=== PATIENT | female | born 1990 | race Caucasian/White ===

== ENCOUNTER 2016-06-20 15:24 | Inpatient (IN) | payer MEDICAID, OTHER ==
[~2016-06-20 15:24] MED LIST: ACET50TA PO; CELE40TA PO; IBUP80TA PO; PROZ20CA11 PO; THIAMINE 100 MG TAB PO SCH
[2016-06-20 15:58] LABS: VENOUS BASE EXCESS -0.1 (-2.0-2.0); VENOUS O2 SATURATION 87.5 % (60.0-80.0); VENOUS PARTIAL PRESSURE CO2 40.9 mmHg (38.0-50.0); VENOUS PARTIAL PRESSURE O2 53.2 mmHg (30.0-50.0); VENOUS STANDARD HCO3 24.2 MEQ/L
[2016-06-20 16:10] LABS: MEAN CORPUSCULAR VOLUME 94.2 fl (80.0-96.0); RED CELL DISTRIBUTION WIDTH 13.7 % (11.5-14.5)
[2016-06-20 16:20] LABS: CONTROL LINE HCG INT CTR LINE PRESENT
[2016-06-20 16:21] LABS: AMPHETAMINES LEVEL URINE NEGATIVE (NEGATIVE); BENZODIAZEPINES URINE NEGATIVE (NEGATIVE); COCAINE METABOLITE URINE NEGATIVE (NEGATIVE); CONTROL LINE INT CTR LINE PRESENT; METHADONE URINE NEGATIVE (NEGATIVE); OPIATES URINE NEGATIVE (NEGATIVE); TRICYCLIC ANTIDEPRESS URINE NEGATIVE (NEGATIVE)
[2016-06-20 16:35] LABS: ALBUMIN 4.2 GM/DL (3.2-5.2); ALBUMIN/GLOBULIN RATIO 1.62 (1.00-1.93); ALKALINE PHOSPHATASE 52 U/L (45-117); ALT/SGPT 63 U/L (12-78); ANION GAP 10 MEQ/L (8-16); AST/SGOT 43 U/L (15-37); BILIRUBIN,DIRECT 0.1 MG/DL (0.0-0.2); BILIRUBIN,TOTAL 0.3 MG/DL (0.2-1.0); BLOOD UREA NITROGEN 9 MG/DL (7-18); CALCIUM LEVEL 8.3 MG/DL (8.5-10.1); CARBON DIOXIDE LEVEL 26 MEQ/L (21-32); CHLORIDE LEVEL 104 MEQ/L (98-107); CREATININE FOR GFR 0.63 MG/DL (0.55-1.02); GLOMERULAR FILTRATION RATE > 60.0 (>60); GLUCOSE, FASTING 67 MG/DL (70-105); POTASSIUM SERUM 3.8 MEQ/L (3.5-5.1); SODIUM LEVEL 140 MEQ/L (136-145); TOTAL PROTEIN 6.8 GM/DL (6.4-8.2)
--- NOTE | 2016-06-20 16:50 | REP ---
CT Head without contrast HISTORY: Altered mental status COMPARISON: 04/14/2010 There is no intraparenchymal hemorrhage, acute infarct, mass or midline shift. The ventricular system is normal in appearance. There is no extra cerebral collection. There is no fracture. The visualized sinuses are clear. IMPRESSION: There is no intracranial lesion. Signed by Josep Moreira MD 06/20/2016 04:42 P
[2016-06-20] MEDS ORDERED: LORazepam 2 MG/ML VIAL (J2060) IV PRN (18:15)
[2016-06-20] MEDS ORDERED: ONDANSETRON 4MG/2ML VIAL (J2405) IV PRN (18:15)
[2016-06-20] MEDS ORDERED: OXAZEPAM 10 MG CAP PO PRN (18:30)
[2016-06-20 19:39] LABS: PROLACTIN 14.8 NG/ML
--- NOTE | 2016-06-20 21:10 | EDDOCDS ---
Physician Documentation [facility] Name: Willow Ortiz Age: 26 yrs Sex: Female : 1990 Arrival Date: 06/20/2016 Time: 15:24 Bed 3 Private MD: Disposition: 06/20/16 17:32 Hospitalization ordered by Abel Nunez for Inpatient Admission. Preliminary diagnosis is Altered mental status, unspecified - suspected ingestion. - Bed requested for PCU. - Status is Inpatient Admission. mlc - Condition is Stable. - Problem is new. - Symptoms are unchanged. Historical: - Allergies: PENICILLINS; - Home Meds: 1. diphenhydramine HCl 25 mg Oral cap found in pants pocket - PMHx: Depression; Bipolar disorder; Substance Abuse; - PSHx: Unable to obtain; - Social history: Smoking status: Patient uses tobacco products, current every day smoker. No barriers to communication noted, The patient speaks fluent Portuguese. - Family history: Not pertinent. - : The pt / caregiver states he / she is not on anticoagulants. Unable to Verify Home Med List with the patient / caregiver. - Exposure Risk Screening:: None identified. LIVING COACH: 06/20 18:54 LMP N/A - Irregular menses kr3 Vital Signs: 15:28 BP 119 / 76; Pulse 104; Resp 16; Temp 98.4(TE); Pulse Ox 99% on R/A; Pain 0/10; kcs 16:06 BP 131 / 78; Pulse 102; Resp 16; Weight 54.43 kg / 120 lbs (R); Height 5 ft. (152.40 kr3 cm) (R); 16:43 BP 113 / 85 (auto/); kr3 16:44 Pulse 101 MON; Resp 16; Pulse Ox 99% on R/A; kr3 17:00 BP 117 / 75 (auto/); kr3 17:01 Pulse 93 MON; Resp 16; Pulse Ox 100% on R/A; kr3 17:21 Pulse 93 MON; Resp 16; Pulse Ox 100% on R/A; kr3 17:28 Pulse 94 MON; kr3 17:30 BP 114 / 83 (auto/); kr3 18:00 BP 121 / 83 (auto/); kr3 18:01 Pulse 93 MON; Resp 16; Pulse Ox 100% on R/A; kr3 18:29 Pulse 102 MON; kr3 18:30 BP 120 / 91 (auto/); kr3 19:00 BP 128 / 81 (auto/); mlc 19:01 Pulse 92 MON; mlc 19:30 BP 126 / 80 (auto/); mlc 19:30 Pulse 90 MON; mlc 20:00 BP 121 / 82 (auto/); mlc 20:01 Pulse 90 MON; mlc 20:30 BP 119 / 88 (auto/); mlc 20:31 Pulse 88 MON; mlc 21:00 BP 130 / 86 (auto/); mlc 21:01 Pulse 88 MON; mlc 21:06 BP 122 / 83; Pulse 90; Resp 18; Temp 98.4; Pulse Ox 99% ; Pain 0/10; mlc 16:06 Body Mass Index 23.44 (54.43 kg, 152.40 cm) kr3 MDM: 15:34 Supervisor Seaming/Pulse Ox/q 30 min VS ordered. sd1 15:34 IV Saline Lock ordered. sd1 15:35 CT Head Without Contrast Ordered. EDMS 15:35 Acetaminophen Level Ordered. EDMS 15:35 Basic Metabolic Profile Ordered. EDMS 15:35 Complete Blood Count Ordered. EDMS 15:35 Drug Eval Toxicology ED Only Ordered. EDMS 15:35 Ethyl Alcohol (ethanol) Ordered. EDMS 15:35 Liver Profile Ordered. EDMS 15:35 Salicylate Level Ordered. EDMS 15:35 Thyroid Stimulating Hormone Ordered. EDMS 15:35 HCG,Serum Qualitative Ordered. EDMS 15:36 NS 0.9% 1000 ml IV at 250 mL/hr continuous ordered. sd1 15:36 ECG WITH READING ER PHYS+CARDIAG ordered. EDMS 15:36 Venous Blood Gas (large pea green tube on ice) Ordered. EDMS 15:36 Ammonia (Little Green Tube on Ice, Not Pea Green) Ordered. EDMS 15:40 BED REQUEST+ADM ordered. EDMS 16:05 Venous Blood Gas (large pea green tube on ice) Reviewed. sd1 16:29 Complete Blood Count Reviewed. sd1 16:29 Drug Eval Toxicology ED Only Reviewed. sd1 16:29 HCG,Serum Qualitative Reviewed. sd1 16:29 Ammonia (Little Green Tube on Ice, Not Pea Green) Reviewed. sd1 16:40 Acetaminophen Level Reviewed. sd1 16:40 Basic Metabolic Profile Reviewed. sd1 16:40 Liver Profile Reviewed. sd1 16:40 Salicylate Level Reviewed. sd1 16:40 Thyroid Stimulating Hormone Reviewed. sd1 16:40 Ethyl Alcohol (ethanol) Reviewed. sd1 16:40 HCG,Serum Qualitative Reviewed. sd1 16:41 Misc. Nursing Order ordered. sd1 17:30 CT Head Without Contrast Reviewed. sd1 17:33 Accucheck ordered. sd1 17:34 Osmolality, Serum Ordered. EDMS 17:49 Fingerstick Blood Sugar Ordered. EDMS 18:08 ERYTHROCYTE SEDIMENTATION RATE Ordered. EDMS 18:08 C REACTIVE PROTEIN QUANTITATIV Ordered. EDMS 18:08 PROLACTIN Ordered. EDMS 18:09 MRI Brain without Contrast Ordered. EDMS 18:12 Admission / Observation Status ordered. EDMS 18:12 ELECTROCARDIOGRAM ADULT ordered. EDMS 18:12 REGULAR DIET ordered. EDMS 18:28 CREATINE PHOSPHOKINASE Ordered. EDMS 19:14 [facility] [place] was scanned into [employer] and attached to record. [facility] 19:14 Financial registration complete. gjb 19:32 COMPLETE BLOOD COUNT Ordered. EDMS 19:32 COMPLETE COMPHRENSIVE METABOLI Ordered. EDMS Administered Medications: 15:55 Drug: NS 0.9% 1000 ml [sodium chloride 0.9 % intravenous solution] Route: IV; Rate: 250 kr3 mL/hr; Site: left forearm; Signatures: Dispatcher [employer] EDDE Monica Mills MD MD sd1 Ariel Le, Strategic Sourcing Manager Unit ml3 Cookie Moise RN RN kr3 Ana Tompkins RN RN mlc Beck, Gabriela gjb The chart was reviewed and I authenticate all verbal orders and agree with the evaluation and treatment provided.Corrections: (The following items were deleted from the chart) 18:28 17:34 CREATINE PHOSPHOKINASE+LAB ordered. EDMS EDMS Attachments: 19:14 [facility] [place] gjb MTDD
--- NOTE | 2016-06-20 21:10 | EDDOCDS ---
Nurse's Notes [facility] Name: Willow Ortiz Age: 26 yrs Sex: Female : 1990 Arrival Date: 06/20/2016 Time: 15:24 Bed 3 Private MD: Diagnosis: Altered mental status, unspecified-suspected ingestion Presentation: 06/20 15:28 Transition of care: patient was not received from another setting of care. kr3 15:28 Presenting complaint: EMS states: seizure while at work, witnessed by staff. 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 Care prior to arrival: Glucose check. 121. 15:28 Acuity: STEPHAN Level 3 kr3 15:28 Method Of Arrival: Ambulance kr3 15:31 Adult Sepsis Screening: Patient has new or worsening altered mentation (1 point). kr3 Patient's respiratory rate is less than 22. Systolic blood pressure is greater than 100. Patient has a qSOFA score of 1- Negative Sepsis Screen. 18:54 Suicide/Homicide risk assessment- the patient denies having any suicidal and/or kr3 homicidal ideations and does not present with any other emotional, behavioral or mental health complaints. Triage Assessment: 16:01 General: Appears in no apparent distress, Behavior is restless. Pain: Denies pain. HIV kr3 screening NA for this visit unable to answer appropriately. The patient is triaged at the bedside. See Assessment in Nurses Notes section of ED record. Neurological: Level of Consciousness is awake, confused. TRIAL COURT JUSTICE: 18:54 LMP N/A - Irregular menses kr3 Historical: - Allergies: PENICILLINS; - Home Meds: 1. diphenhydramine HCl 25 mg Oral cap found in pants pocket - PMHx: Depression; Bipolar disorder; Substance Abuse; - PSHx: Unable to obtain; - Social history: Smoking status: Patient uses tobacco products, current every day smoker. No barriers to communication noted, The patient speaks fluent Portuguese. - Family history: Not pertinent. - : The pt / caregiver states he / she is not on anticoagulants. Unable to Verify Home Med List with the patient / caregiver. - Exposure Risk Screening:: None identified. Screenin:07 Screening information is obtained from the patient. Fall risk: At risk due to apparent kr3 cognitive impairment. Assistance ADL's: requires no assistance with activities of daily living. Abuse/DV Screen: Unable to Assess. Nutritional screening: No deficits noted. Advance Directives: Currently, there is no health care proxy. home support. 18:54 Abuse/DV Screen: The patient / caregiver reports he/she is: not in a situation that kr3 causes fear, pain or injury. Assessment: 16:02 Reassessment: Patient appears in no apparent distress at this time. General: Behavior kr3 is cooperative with redirection. attempts have been made to remove IV and get off stretcher. patient is reminded to leave IV alone and stay on stretcher and reports I forget. . Pain: Denies pain. 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 wants to get off stretcher to get book bag. Cardiovascular: Rhythm is regular. Respiratory: Respiratory effort is even, unlabored. Derm: Skin is normal. 16:21 Reassessment: confused about events, reoriented. Boyfriend at bedside and reports no kr3 history of seizures. 17:32 Adult Sepsis Screening: The patient does not have new or worsening altered mentation. kr3 Patient's respiratory rate is less than 22. Systolic blood pressure is greater than 100. Patient has a qSOFA score of 0- Negative Sepsis Screen. 17:35 Reassessment: Patient appears in no apparent distress at this time. General: Behavior kr3 is cooperative. Neurological: Level of Consciousness is awake, confused, Oriented to person, when asked her location she reports at [place]. Aware it is 2016 but thinks it is April. Moves all extremities. 18:21 Reassessment: Patient appears in no apparent distress at this time. Neurological: Level kr3 of Consciousness is awake, confused, Oriented to person, confused as to place and date. Recognizes boyfriend and will follow commands. 18:52 Reassessment: Patient appears in no apparent distress at this time. Patient denies pain kr3 at this time. Neurological: Level of Consciousness is awake, Oriented to person, place, aware it is winter and is 2017, not sure of month. Moves all extremities. Speech is normal. Derm: Skin is normal. 19:31 General: Appears in no apparent distress, comfortable, Behavior is cooperative, mlc pleasant. General: pt asking for creamer for her coffee which she states "is downstairs". Pain: Denies pain. Neurological: Level of Consciousness is awake, confused, obeys commands, Oriented to person, place. Cardiovascular: Capillary refill < 3 seconds Heart tones S1 S2 present Rhythm is regular. Respiratory: Airway is patent Respiratory effort is even, unlabored, Respiratory pattern is regular, Breath sounds are clear bilaterally. Derm: Skin is normal. 20:33 Reassessment: Patient appears in no apparent distress at this time. pt resting in bed, mlc resp easy/unlabored. no changes since prior. 21:05 General: Appears in no apparent distress, comfortable, Behavior is cooperative. Pain: mlc Denies pain. Neurological: Level of Consciousness is awake, obeys commands, Oriented to person, place. Respiratory: Airway is patent Respiratory effort is even, unlabored, Respiratory pattern is regular. 21:05 Derm: Bruising that is on forehead. [facility] [place] Vital Signs: 15:28 BP 119 / 76; Pulse 104; Resp 16; Temp 98.4(TE); Pulse Ox 99% on R/A; Pain 0/10; kcs 16:06 BP 131 / 78; Pulse 102; Resp 16; Weight 54.43 kg (R); Height 5 ft. (152.40 cm) (R); kr3 16:43 BP 113 / 85 (auto/); kr3 16:44 Pulse 101 MON; Resp 16; Pulse Ox 99% on R/A; kr3 17:00 BP 117 / 75 (auto/); kr3 17:01 Pulse 93 MON; Resp 16; Pulse Ox 100% on R/A; kr3 17:21 Pulse 93 MON; Resp 16; Pulse Ox 100% on R/A; kr3 17:28 Pulse 94 MON; kr3 17:30 BP 114 / 83 (auto/); kr3 18:00 BP 121 / 83 (auto/); kr3 18:01 Pulse 93 MON; Resp 16; Pulse Ox 100% on R/A; kr3 18:29 Pulse 102 MON; kr3 18:30 BP 120 / 91 (auto/); kr3 19:00 BP 128 / 81 (auto/); mlc 19:01 Pulse 92 MON; mlc 19:30 BP 126 / 80 (auto/); mlc 19:30 Pulse 90 MON; mlc 20:00 BP 121 / 82 (auto/); mlc 20:01 Pulse 90 MON; mlc 20:30 BP 119 / 88 (auto/); mlc 20:31 Pulse 88 MON; mlc 21:00 BP 130 / 86 (auto/); mlc 21:01 Pulse 88 MON; mlc 21:06 BP 122 / 83; Pulse 90; Resp 18; Temp 98.4; Pulse Ox 99% ; Pain 0/10; mlc 16:06 Body Mass Index 23.44 (54.43 kg, 152.40 cm) kr3 Vitals: 15:32 Log In Time N/A - ambulance arrival. kr3 ED Course: 15:25 Patient visited by Xenia Buckley, Supervisor Incising. deg 15:25 Patient moved to Waiting deg 15:26 Monica Mills MD is Attending Physician. sd1 15:26 Patient moved to 11 deg 15:28 Patient visited by Monica Mills MD. sd1 15:29 Triage Initiated kr3 15:36 Patient moved to 3 sd1 15:52 Cookie Moise,JANENE is Primary Nurse. kr3 16:00 Drug Eval Toxicology ED Only Sent. kr3 16:01 Maintain field IV. Dressing intact. Site clean & dry. Gauge & site: #18 left forearm. kr3 16:06 The patient / caregiver is instructed regarding the plan of care and ED course. Patient kr3 has correct armband on for positive identification. Placed in gown. Bed in low position. Side rails up X2. Seizure precautions initiated. radiation monitor on. Pulse ox on. NIBP on. 16:12 EKG done. (by ED staff). Reviewed by Monica Mills MD. dem1 16:20 Patient visited by Cookie Moise,JANENE. kr3 16:21 Patient visited by Kyleigh Pham. dem1 17:18 CT Head Without Contrast Returned. EDMS 17:24 Patient visited by Almaz Walker PCA. ct3 17:31 Abel Nunez is Hospitalizing Provider. sd1 17:33 Patient visited by Cynthia Mccray,JANENE. lf1 17:33 Assisted to bedside commode. lf1 18:54 No procedures done that require assistance. kr3 19:00 Ana Tompkins,JANENE is Primary Nurse. mlc 19:00 Primary Nurse role handed off by Cookie Moise,JANENE kr3 19:14 [facility] Payment Agreement was scanned into [employer] and attached to record. gjb 19:35 Patient visited by Ana Tompkins RN. mlc Administered Medications: 15:55 Drug: NS 0.9% 1000 ml [sodium chloride 0.9 % intravenous solution] Route: IV; Rate: 250 kr3 mL/hr; Site: left forearm; Output: 17:33 Urine: 300.00ml (Voided); Total: 300.00ml. lf1 Order Results: Lab Order: Acetaminophen Level; SPEC'M 06/20/16 15:49 Test: ACETAMINOPHEN LEVEL; Value: < 2.0; Range: 10.0-30.0; Abnormal: Below low normal; Units: UG/ML; Status: F Lab Order: Basic Metabolic Profile; SPEC'M 06/20/16 15:49 Test: GLUCOSE, FASTING; Value: 67; Range: 70-105; Abnormal: Below low normal; Units: MG/DL; Status: F Test: BLOOD UREA NITROGEN; Value: 9; Range: 7-18; Units: MG/DL; Status: F Test: CREATININE FOR GFR; Value: 0.63; Range: 0.55-1.02; Units: MG/DL; Status: F Test: SODIUM LEVEL; Range: 136-145; Units: MEQ/L; Status: I Test: POTASSIUM SERUM; Range: 3.5-5.1; Units: MEQ/L; Status: I Test: CHLORIDE LEVEL; Range: 98-107; Units: MEQ/L; Status: I Test: CARBON DIOXIDE LEVEL; Range: 21-32; Units: MEQ/L; Status: I Test: ANION GAP; Range: 8-16; Units: MEQ/L; Status: I Test: CALCIUM LEVEL; Range: 8.5-10.1; Units: MG/DL; Status: I Test: GLOMERULAR FILTRATION RATE; Value: > 60.0; Range: >60; Status: F Test: SODIUM LEVEL; Value: 140; Range: 136-145; Units: MEQ/L; Status: F Test: POTASSIUM SERUM; Value: 3.8; Range: 3.5-5.1; Units: MEQ/L; Status: F Test: CHLORIDE LEVEL; Value: 104; Range: 98-107; Units: MEQ/L; Status: F Test: CARBON DIOXIDE LEVEL; Value: 26; Range: 21-32; Units: MEQ/L; Status: F Test: ANION GAP; Value: 10; Range: 8-16; Units: MEQ/L; Status: F Test: CALCIUM LEVEL; Value: 8.3; Range: 8.5-10.1; Abnormal: Below low normal; Units: MG/DL; Status: F Test Note: ; Units are mL/min/1.73 m2 Chronic Kidney Disease Staging per NKF: Stage I & II GFR >=60 Normal to Mildly Decreased Stage III GFR 30-59 Moderately Decreased Stage IV GFR 15-29 Severely Decreased Stage V GFR <15 Very Little GFR Left ESRD GFR <15 on SHERIFF SERGEANT Lab Order: Complete Blood Count; SPEC'M 06/20/16 15:49 Test: WHITE BLOOD COUNT; Value: 8.0; Range: 4.0-10.0; Units: K/mm3; Status: F Test: RED BLOOD COUNT; Value: 3.71; Range: 4.00-5.40; Abnormal: Below low normal; Units: M/mm3; Status: F Test: HEMOGLOBIN; Value: 11.5; Range: 12.0-16.0; Abnormal: Below low normal; Units: g/dl; Status: F Test: HEMATOCRIT; Value: 34.9; Range: 36.0-47.0; Abnormal: Below low normal; Units: %; Status: F Test: MEAN CORPUSCULAR VOLUME; Value: 94.2; Range: 80.0-96.0; Units: fl; Status: F Test: MEAN CORPUSCULAR HEMOGLOBIN; Value: 31.0; Range: 27.0-33.0; Units: pg; Status: F Test: MEAN CORPUSCULAR HGB CONC; Value: 33.0; Range: 32.0-36.5; Units: g/dl; Status: F Test: RED CELL DISTRIBUTION WIDTH; Value: 13.7; Range: 11.5-14.5; Units: %; Status: F Test: PLATELET COUNT, AUTOMATED; Value: 240; Range: 150-450; Units: k/mm3; Status: F Lab Order: Drug Eval Toxicology ED Only; SPEC'M 06/20/16 15:59 Test: AMPHETAMINES LEVEL URINE; Value: NEGATIVE; Range: NEGATIVE; Status: F Test: BARBITURATES URINE; Value: NEGATIVE; Range: NEGATIVE; Status: F Test: BENZODIAZEPINES URINE; Value: NEGATIVE; Range: NEGATIVE; Status: F Test: CANNABINOIDS URINE; Value: NEGATIVE; Range: NEGATIVE; Status: F Test: COCAINE METABOLITE URINE; Value: NEGATIVE; Range: NEGATIVE; Status: F Test: METHADONE URINE; Value: NEGATIVE; Range: NEGATIVE; Status: F Test: OPIATES URINE; Value: NEGATIVE; Range: NEGATIVE; Status: F Test: TRICYCLIC ANTIDEPRESS URINE; Value: NEGATIVE; Range: NEGATIVE; Status: F Test Note: ; ALL PRESUMPTIVE POSITIVE FINDINGS ARE UNCONFIRMED NORMAL VALUES THRESHOLD IN NG/ML AMPHETAMINES 1000 METHAMPHETAMINES 1000 BARBITURATES 300 BENZODIAZEPINES 300 CANNABINOIDS (THC) 50 COCAINE METABOLITE 300 METHADONE 300 OPIATES 300 PHENCYCLIDINE 25 TRICYCLIC ANTIDEPRESSANTS 1000 RESULTS ARE FOR MEDICAL PURPOSES ONLY. ALL URINE SPECIMENS WILL BE SAVED FOR 3 DAYS. IF CONFIRMATION OF A PRESUMPTIVE POSTIVE SCREEN RESULT IS DESIRED, CALL CHEMISTRY ([phone]) AND REQUEST URINE TO BE SENT TO REFERENCE LAB. FOR A LIST OF CLOSELY RELATED COMPOUNDS PLEASE CALL THE LAB. Lab Order: Ethyl Alcohol (ethanol); SPEC'M 06/20/16 15:49 Test: ETHYL ALCOHOL (ETHANOL); Value: 0.003; Range: 0.000-0.010; Units: %; Status: F Lab Order: Liver Profile; SPEC'M 06/20/16 15:49 Test: AST/SGOT; Value: 43; Range: 15-37; Abnormal: Above high normal; Units: U/L; Status: F Test: ALT/SGPT; Value: 63; Range: 12-78; Units: U/L; Status: F Test: ALKALINE PHOSPHATASE; Value: 52; Range: 45-117; Units: U/L; Status: F Test: BILIRUBIN,TOTAL; Value: 0.3; Range: 0.2-1.0; Units: MG/DL; Status: F Test: BILIRUBIN,DIRECT; Value: 0.1; Range: 0.0-0.2; Units: MG/DL; Status: F Test: TOTAL PROTEIN; Value: 6.8; Range: 6.4-8.2; Units: GM/DL; Status: F Test: ALBUMIN; Value: 4.2; Range: 3.2-5.2; Units: GM/DL; Status: F Test: ALBUMIN/GLOBULIN RATIO; Value: 1.62; Range: 1.00-1.93; Status: F Lab Order: Salicylate Level; SPEC06/20/16 15:49 Test: SALICYLATE LEVEL; Value: 3.3; Range: 5.0-30.0; Abnormal: Below low normal; Units: MG/DL; Status: F Lab Order: Thyroid Stimulating Hormone; SPEC06/20/16 15:49 Test: THYROID STIMULATING HORMONE; Value: 5.890; Range: 0.358-3.740; Abnormal: Above high normal; Units: uIU/ML; Status: F Lab Order: HCG,Serum Qualitative; 06/20/16 15:49 Test: HCG, SERUM QUALITATIVE; Value: NEGATIVE; Range: NEGATIVE; Status: F Lab Order: Venous Blood Gas (large pea green tube on ice); SPEC06/20/16 15:49 Test: VENOUS PH; Value: 7.399; Range: 7.330-7.430; Units: UNITS; Status: F Test: VENOUS PARTIAL PRESSURE CO2; Value: 40.9; Range: 38.0-50.0; Units: mmHg; Status: F Test: VENOUS PARTIAL PRESSURE O2; Value: 53.2; Range: 30.0-50.0; Abnormal: Above high normal; Units: mmHg; Status: F Test: VENOUS TOTAL CO2; Value: 26.0; Range: 24.0-28.0; Units: MEQ/L; Status: F Test: VENOUS HCO3; Value: 24.7; Range: 23.0-27.0; Units: MEQ/L; Status: F Test: VENOUS BASE EXCESS; Value: -0.1; Range: -2.0-2.0; Status: F Test: VENOUS STANDARD HCO3; Value: 24.2; Units: MEQ/L; Status: F Test: VENOUS O2 SATURATION; Value: 87.5; Range: 60.0-80.0; Abnormal: Above high normal; Units: %; Status: F Lab Order: Ammonia (Little Green Tube on Ice, Not Pea Green); SPEC06/20/16 15:49 Test: AMMONIA; Value: 17; Range: <32; Units: uMOL/L; Status: F Lab Order: Osmolality, Serum; SPEC'06/20/16 18:17 Test: OSMOLALITY SERUM; Value: 290; Range: 275-295; Units: MOSM/KG; Status: F Lab Order: Fingerstick Blood Sugar; 06/20/16 17:40 Test: BEDSIDE GLUCOSE; Value: 117; Range: 70-105; Abnormal: Above high normal; Units: MG/DL; Status: F Test Note: ; Doctor Notified Lab Order: ERYTHROCYTE SEDIMENTATION RATE; SPEC06/20/16 18:17 Test: ERYTHROCYTE SEDIMENTATION RATE; Value: 8; Range: 0-20; Units: mm/hr; Status: F Lab Order: C REACTIVE PROTEIN QUANTITATIV; 06/20/16 18:17 Test: C REACTIVE PROTEIN QUANTITATIV; Value: < 0.30; Range: 0.00-0.30; Units: MG/DL; Status: F Lab Order: PROLACTIN; 06/20/16 18:17 Test: PROLACTIN; Value: 14.8; Units: NG/ML; Status: F Test Note: ; Non-: 2.8 - 29.2 ng/mL : 9.7 - 208.5 ng/mL Post Menopausal: 1.8 - 20.3 ng/mL Lab Order: CREATINE PHOSPHOKINASE; 06/20/16 18:17 Test: CPK CREATINE PHOSPHOKINASE; Value: 118; Range: 26-192; Units: U/L; Status: F Radiology Order: CT Head Without Contrast Test: CT Head Without Contrast REASON FOR EXAMINATION: altered mental status; CT Head without contrast; ; HISTORY: Altered mental status; ; COMPARISON: 04/14/2010; ; There is no intraparenchymal hemorrhage, acute infarct, mass or midline shift.; The ventricular system is normal in appearance. There is no extra cerebral; collection. There is no fracture. The visualized sinuses are clear.; ; IMPRESSION: There is no intracranial lesion.; ; ; ; ; Signed by; Josep Moreira MD 06/20/2016 04:42 P; Outcome: 17:32 Decision to Hospitalize by Provider. sd1 18:53 CT Study completed. kr3 21:06 Discharge Assessment: Patient awake, alert and oriented x 3. No cognitive and/or mlc functional deficits noted. Patient verbalized understanding of disposition instructions. patient administered narcotics - no. The following High Risk Discharge criteria are identified: None. Admitted to PCU accompanied by nurse, accompanied by tech, via stretcher, on monitor, with chart. Condition: stable. Property :Personal belongings accompany Pt. 21:08 Patient left the ED. mlc Signatures: Dispatcher [employer] EDMS Monica Mills MD MD sd1 Laila Grissom, RN RN kcs Xenia Buckley, Supervisor Incising Unit deg Cookie MoiseRN RN kr3 Cynthia Mccray RN RN lf1 Almaz Walker, BLACKSMITH HAMMER OPERATOR BLACKSMITH HAMMER OPERATOR ct3 Kyleigh Pham demAna GallowayRN RN Blanca Cantrell Corrections: (The following items were deleted from the chart) 18:32 17:21 Pulse 93bpm; Monitor; Pulse Ox 100%; kr3 kr3 18:32 17:01 Pulse 93bpm; Monitor; Pulse Ox 100%; kr3 kr3 18:32 16:44 Pulse 101bpm; Monitor; Pulse Ox 99%; kr3 kr3 MTDD
[2016-06-20 21:21] VITALS: BP 116/83
[2016-06-20] MEDS: MULTIVITAMINS/MINERALS THERAP 1 TAB PO SCH (22:08)
[2016-06-20] MEDS: FOLIC ACID 1 MG TAB PO SCH (22:08)
[2016-06-20] MEDS: NS 1,000 ML IV SCH (22:09)
--- NOTE | 2016-06-20 22:09 | HPE ---
DATE OF ADMISSION: 06/20/2016 PRIMARY CARE PROVIDER: Patient cannot provide me with a name. She thinks it is Lynne something. CHIEF COMPLAINT: Seizure. HISTORY OF PRESENT ILLNESS: The patient is a 26-year-old female who reports being in her usual state of her health. She is accompanied by her boyfriend of four months in the emergency room. States that the patient has been in her usual state of health. He was reportedly going to pick the patient up at three o'clock this afternoon when she finished her work shift. It was at that time that he called her and was informed by a fellow staff member at the patient's place of employment that only moments earlier, approximately 3 p.m. today, the patient had a seizure, and that there were members of the fire department next to the patient at that time and they brought her to the emergency room. The patient remembers being at work today, but does not remember the events of the seizure or being brought to the hospital. At the time of my exam, she is oriented to person, place. She knows that she is at [facility], but she does not remember why. She does not know why she is here. At the present times, she complains of feeling thirsty and dry mouth, but otherwise denies any toxic ingestions otherwise, or any changes in her health status. She tells me that she takes no medications and has otherwise been feeling well. The patient's boyfriend is bedside and reaffirms that the patient was drinking up until four months ago, but has not been drinking in the past four months that he is aware of and that he is not aware of her using any illicit substances during the last four months that he is aware of. The patient does have a history of substance abuse and also hospitalization for major depressive disorder in the past. The patient and the boyfriend denied any increased stressor or lack of sleep. The patient is not taking any medications. At the present time, the patient denies fever, chills, chest pain, shortness of breath, nausea, vomiting or diarrhea, sick contacts. PAST MEDICAL HISTORY: 1. Bipolar disorder. 2. Major depressive disorder. 3. Substance abuse. HOME MEDICATIONS: The patient was found to have Benadryl packets in her pocket. ALLERGIES: PENICILLIN. PAST SURGICAL HISTORY: The patient denies any. SOCIAL HISTORY: The patient smokes a half pack a day for the past 12 years. She lives with her boyfriend and her daughter who is three years old. The patient's daughter is currently with the patient's mother. She is a full code. FAMILY HISTORY: Noncontributory. REVIEW OF SYSTEMS: Negative other than as per history of present illness (HPI). PHYSICAL EXAMINATION: VITAL SIGNS: Blood pressure 114/83, pulse 94, respiratory rate 16, temperature 98.4, oxygen saturation 100% on room air. GENERAL: She is a young, somewhat disheveled female sitting up in bed. She is awake, alert, and oriented; however, the patient's boyfriend states that her mental status is improving over the last 20 minutes. She does appear to be postictal. She does not appear to be in any acute distress whatsoever. HEENT: Cranial nerves II through XII are grossly intact. Her pupils are not dilated, but she does have dry mucous membranes. No elevation of central venous pressure (CVP). CARDIOVASCULAR: S1, S2. She is mildly tachycardic with a heart rate in the 90s. RESPIRATORY: Clear. ABDOMEN: Benign. EXTREMITIES: No clubbing, cyanosis or edema. LABORATORY DATA: WBC 8.0, hemoglobin 11.5, hematocrit 34.9, platelet count 240. Chemistry panel: Sodium 140, potassium 3.8, chloride 104, bicarbonate 26, BUN 9, creatinine 0.6. AST slightly elevated at 43. Ammonia within normal limits. A TSH is slightly elevated. HCG is negative. A VBG is fairly unremarkable. Toxicology is only positive for alcohol. IMAGING: The patient did have a CT scan of the head that revealed no intracranial lesion. ASSESSMENT AND PLAN: This is a 26-year-old female status post what appears to be a seizure episode. 1. Seizure. The only history is collateral from the patient's boyfriend, who states he was told she had a seizure at work. The patient cannot remember the events herself. At this time, we will begin seizure evaluation. The patient has no history of seizures. We will check an electroencephalogram (EEG), will check an MRI of the brain. The patient's boyfriend also stated that the patient has not been drinking; however, she was positive for alcohol at the time of her arrival. There is also suspicion that she may have been taking Benadryl as well. Given the patient's psychiatric history and substance abuse history, it is unclear if she potentially ingested some other substance which could be creating her slight level of confusion at the present time, or even inducing the seizure. For the time being, we will place her on a one-to-one sitter. She may benefit from a psychiatric evaluation once she has completely returned to her baseline. It is also possible that her confusion at this time is simply postictal. 2. Alcohol abuse. The patient has a history of alcohol abuse, and her boyfriend says she is not drinking; however, she was positive for alcohol on her toxicology screen. We will put her on as-needed Serax and intravenous (IV) Ativan as needed for seizures, as well as folic acid, multivitamin and thiamine. She does appear to be somewhat dry. I will provide her with normal saline at 100 mL an hour and Zofran as needed. 3. Tobacco use. Cessation counseling. The utility of this is questionable at this point as her mental status is somewhat cloudy. Reconsider when the patient is more alert. 4. Possible Benadryl toxicity. She does not appear to be overtly anticholinergic. She has dry mucous membranes but she is not tachycardic. Her pupils are not dilated. For the time being, we will monitor in the progressive care unit with a one-to-one sitter with neurologic checks and seizure precautions. 5. Deep venous thrombosis (DVT) prophylaxis. Sequentials and thromboembolism deterrent stockings (TEDs), and early ambulation. DISPOSITION: The patient is admitted to the progressive care unit to Dr. Felipe's service who will continue following the patient tomorrow at 7 a.m. Also, please note that given that the patient has had an episode of seizure, she should not be driving in the near future.
[2016-06-21 00:24] VITALS: BP 100/54
[2016-06-21] MEDS ORDERED: IBUPROFEN 400 MG TAB PO ONE (00:45)
[2016-06-21 04:41] VITALS: BP 98/56
[2016-06-21 06:00] LABS: MEAN CORPUSCULAR HEMOGLOBIN 32.2 pg (27.0-33.0); MEAN CORPUSCULAR HGB CONC 33.6 g/dl (32.0-36.5); MEAN CORPUSCULAR VOLUME 95.9 fl (80.0-96.0); RED CELL DISTRIBUTION WIDTH 13.7 % (11.5-14.5)
[2016-06-21 06:14] LABS: ALBUMIN 3.5 GM/DL (3.2-5.2); ALBUMIN/GLOBULIN RATIO 1.35 (1.00-1.93); ALKALINE PHOSPHATASE 45 U/L (45-117); ALT/SGPT 62 U/L (12-78); ANION GAP 9 MEQ/L (8-16); AST/SGOT 40 U/L (15-37); BILIRUBIN,TOTAL 0.2 MG/DL (0.2-1.0); BLOOD UREA NITROGEN 11 MG/DL (7-18); CALCIUM LEVEL 7.5 MG/DL (8.5-10.1); CARBON DIOXIDE LEVEL 24 MEQ/L (21-32); CHLORIDE LEVEL 108 MEQ/L (98-107); CREATININE FOR GFR 0.71 MG/DL (0.55-1.02); GLOMERULAR FILTRATION RATE > 60.0 (>60); GLUCOSE, FASTING 86 MG/DL (70-105); SODIUM LEVEL 141 MEQ/L (136-145); TOTAL PROTEIN 6.1 GM/DL (6.4-8.2)
[2016-06-21] MEDS: NS 1,000 ML IV SCH (06:30)
--- NOTE | 2016-06-21 07:27 | ECGEPIP ---
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
[2016-06-21 08:00] VITALS: BP 99/62
[2016-06-21 08:24] LABS: FREE T4 0.74 NG/DL (0.76-1.46)
[2016-06-21] MEDS: FOLIC ACID 1 MG TAB PO SCH (09:01)
[2016-06-21] MEDS: MULTIVITAMINS/MINERALS THERAP 1 TAB PO SCH (09:01)
[2016-06-21 12:00] VITALS: BP 92/52
--- NOTE | 2016-06-21 12:25 | REP ---
MR BRAIN WITHOUT CONTRAST: HISTORY: Seizure. COMPARISON: CT 06/20/2016. There are no areas of abnormal signal intensity in the brain. There is no intraparenchymal hemorrhage, infarct, mass, or midline shift. The ventricular system is normal in appearance. There is no extracerebral collection. Mucosal thickening is present in the ethmoid, frontal, and maxillary sinuses. IMPRESSION: There is no intracranial lesion. Signed by Josep Moreira MD 06/21/2016 12:34 P
--- NOTE | 2016-06-21 15:30 | IPN ---
DATE: 06/21/2016 SUBJECTIVE: This is a 26-year-old female who was seen and examined at bedside. Overnight, no reported acute events. Yesterday, she was admitted for possible seizure. She has never had a diagnosis of seizure before. Reportedly had not been taking any medication. While she was found to have Benadryl in her pocket, she said the last time she took any Benadryl was 2 weeks ago. Denies any headache, lightheadedness, dizziness, fevers, chills, nausea, vomiting, diarrhea , constipation, weakness, blurred vision. OBJECTIVE: VITAL SIGNS: Blood pressure 99/62, heart rate 77, respiration rate 22, temperature 96.5, pulse oximetry 97% on room air. Intake and output last 24 hours: 960 and 100. GENERAL: Patient is sitting in bed, eating, comfortable, in no acute distress. She is alert, awake, oriented times three, pleasant and cooperative. Boyfriend at bedside. HEENT: Normocephalic, atraumatic. Moist oral mucosa. Extraocular movement intact. Pupils equal and reactive to light, 3 mm. NECK: Supple, trachea midline, no jugular venous distention (JVD). CHEST: Symmetric chest rise, no accessory muscle use. Breath sounds clear to auscultation bilaterally. HEART: Regular rate and rhythm, S1, S2, present. ABDOMEN: Soft, nontender, nondistended. Bowel sounds present. No guarding, no rebound. EXTREMITIES: No pedal edema. Pedal pulses present bilaterally. NEUROLOGIC: Strength 5/5 in all extremities. Negative Babinski. LABORATORY DATA: WBC 7, hemoglobin 11, hematocrit 32.9, platelets 246. Sodium 141, potassium 4, chloride 108, carbon dioxide 24, BUN 11, creatinine 0.71, glucose 86, calcium 7.5, AST 40, ALT 60, alkaline phosphatase 45. TSH 5.9. IMPRESSION AND PLAN: Ms. Ortiz is a 26-year-old female admitted for possible seizure disorder. 1. Possible seizure, though event was not witnessed. Currently has EEG pending and also getting MRI. Will followup with results. CT on admission was negative. Prolactin was negative. Continue to monitor. There was concern for possible Benadryl abuse. Currently patient denies taking any of this in the last 2 weeks. Continue one-to-one sitter for now. 2. Alcohol abuse. Apparently is in remission, her last drink was 4 months ago per patient and boyfriend. 3. Deep venous thrombosis (DVT) prophylaxis. Sequential compression device (SCDs) and thromboembolism deterrents (TEDs). My preceptor for this patient encounter was Dr. Jasvir Felipe. The preceptor was physically present in the building during the encounter and was fully available. As needed, all aspects of the patient interview, examination, medical decision making process, and medical care plan development were reviewed and approved by the preceptor. The preceptor is aware and concurs with the plan as stated in the body of this note and will attest to such by his/her cosignature. TONYA
--- NOTE | 2016-06-21 17:46 | EEG ---
DATE OF PROCEDURE: 06/21/2016 REFERRING PHYSICIAN: Jasvir Felipe MD DIAGNOSIS: Seizure. EE The patient is 26-year-old woman who was admitted at [facility] after a seizure-like spell. She has history of substance abuse and had positive toxicology screen. She is currently taking folic acid, thiamine, oxazepam, Ativan, etc. TECHNICAL DESCRIPTION: This digital EEG was recorded by 21 scalp, ear and two EKG electrodes and was reviewed in bipolar and referential montages following reformatting in 10-20 international electrode placement system. INTERPRETATION: The patient was noted to be in awake and drowsy states during this EEG. Resting awake background rhythm consisted of 9 Hz alpha activity measuring 15-30 microvolts in amplitude, which was symmetric and reactive to eye opening. Attenuation of posterior dominant rhythm was seen during transition into drowsiness. Stage I and II sleep were reviewed and were symmetric bilaterally. Hyperventilation elicited mild theta slowing of background rhythm. Photic stimulation remained unremarkable. EKG revealed normal sinus rhythm. No focal, lateralizing or epileptiform abnormalities were seen. No clinical or electrographic seizures were recorded. CONCLUSION: This EEG in awake, drowsy states, stage I and II sleep is within normal limits.
--- NOTE | 2016-06-21 21:30 | DS.PDOC ---
Discharge Summary General Date of Admission Jun 20, 2016 at 18:08 Date of Discharge Jun 21, 2016 at 13:35 Attending Physician: ARTEM HEMPHILL MD Discharge Summary PROCEDURES PERFORMED DURING STAY: [None.] COMPLICATIONS/CHIEF COMPLAINT: Seizure ADMISSION/DISCHARGE DIAGNOSES: 1. Seizure, unknown etiology 2. H/o Alcohol abuse 3. H/o Substance abuse 4. H/o MDD 5. H/o Bipolar d/o. HISTORY OF PRESENT ILLNESS/HOSPITAL COURSE: This is a 26 y/o F with PMHx Depression, Bipolar d/o, h/o alcohol abuse/ substance abuse (no recent use) who presents after having a seizure at work. Pt was at work, talking to her boyfriend over the phone, as he was outside of the building, waiting to pick her up. He noticed that she was becoming incoherent, and then heard a thump. A co-worker of her's took the phone, and reported her unconscious and seizing. Pt was in a post-ictal state upon arrival to the ED. Pt states she had Benadryl in her pocket that she received from her co-worker for her seasonal allergies. She reports no recent alcohol or illicit drug use. She has no history or family history of neurologic d/o, seizures, or strokes. She states she has never had nor has suicidal ideations. Never had any suicide attempts or overdose attempts. Feels happy in a relationship with her boyfriend. Pt was adamant that she would like to leave AMA as she needs to be home by 5pm so she can take care of her daughter. Does not want to stay until all test results have returned and evaluated by neurology. Advised not to drive or use heavy machinery until evaluated and cleared by a neurologist. DISCHARGE MEDICATIONS: Please see below. ALLERGIES: Please see below. PHYSICAL EXAMINATION ON DISCHARGE: Vitals: (see below) General: No acute distress, laying comfortably in bed. HEENT: Moist mucous membranes. Poor dentition Neck: No JVD or lymphadenopathy Cardiac: RRR, No murmurs Pulm: Clear to auscultation b/l. No wheezing, rhonchi Abd: NT/ND + BS Ext: No edema or cyanosis Neuro: Strength 5/5 BUE and BLE. CN 2-12 intact. F to N intact Negative pronator drift. Negative Babinki. Sensation to fine touch intact. Psych: Not suicidal or homicidal. AAOx3. Good insight and adequate judgement. Verbalized understands of reason for admission, and risks of leaving AMA including recurrent seizures, head trauma from seizures, injury, . LABORATORY DATA: Please see below. IMAGING: MRI Brain 06/21/16 IMPRESSION: There is no intracranial lesion. EEG Pending. VTE Prophylaxis ordered?: Yes DISCHARGE CONDITION: Stable DISPOSITION: 07 Against Medical Advice ACTIVITY: As tolerated. DIET: As tolerated. Advised to cut down on coffee intake and to stay hydrated. DISCHARGE PLAN AND INSTRUCTIONS: 1. Pt is to f/u with PCP as soon as possible, and to have a neurology referral. Pt is to return to the ED if symptoms recur, and to seek medical attention. TIME SPENT ON DISCHARGE: Greater than 30 minutes. Vital Signs/I&Os Vital Signs Date Time Temp Pulse Resp B/P Pulse Ox O2 Delivery O2 Flow Rate FiO2 06/21/16 12:00 97.6 84 18 92/52 98 Room Air I&O- Last 24 Hours up to 6 AM 06/21/16 06:00 Intake Total 760 ml Output Total 300 ml Balance 460 ml Laboratory Data Labs 24H Laboratory Tests 2 06/21/16 05:14: Blood Urea Nitrogen 11, Creatinine 0.71, Sodium Level 141, Potassium Level 4.0, Chloride Level 108H, Carbon Dioxide Level 24, Calcium Level 7.5L, Aspartate Amino Transf (AST/SGOT) 40H, Alanine Aminotransferase (ALT/SGPT) 62, Alkaline Phosphatase 45, Total Bilirubin 0.2, Total Protein 6.1L, Albumin 3.5, Albumin/ Globulin Ratio 1.35, Anion Gap 9, Free Thyroxine 0.74L, Glomerular Filtration Rate > 60.0 CBC/BMP Laboratory Tests 06/21/16 05:14 Calcium Level 7.5 L, Aspartate Amino Transf (AST/SGOT) 40 H, Alanine Aminotransferase (ALT/SGPT) 62, Alkaline Phosphatase 45, Total Bilirubin 0.2, Total Protein 6.1 L, Albumin 3.5, Red Blood Count 3.43 L, Mean Corpuscular Volume 95.9, Mean Corpuscular Hemoglobin 32.2, Mean Corpuscular Hemoglobin Concent 33.6, Red Cell Distribution Width 13.7 Medications No Active Prescriptions or Reported Meds Allergies Coded Allergies: Penicillin G (Verified Allergy, 01/09/13) ARTEM HEMPHILL MD Jun 21, 2016 21:30
--- NOTE | 2016-06-22 22:09 | EDDOCDS ---
Physician Documentation [facility] Name: Willow Ortiz Age: 26 yrs Sex: Female : 1990 Arrival Date: 06/20/2016 Time: 15:24 Bed 3 Private MD: Disposition: 06/20/16 17:32 Hospitalization ordered by Abel Nunez for Inpatient Admission. Preliminary diagnosis is Altered mental status, unspecified - suspected ingestion. - Bed requested for PCU. - Status is Inpatient Admission. mlc - Condition is Stable. - Problem is new. - Symptoms are unchanged. Historical: - Allergies: PENICILLINS; - Home Meds: 1. diphenhydramine HCl 25 mg Oral cap found in pants pocket - PMHx: Depression; Bipolar disorder; Substance Abuse; - PSHx: Unable to obtain; - Social history: Smoking status: Patient uses tobacco products, current every day smoker. No barriers to communication noted, The patient speaks fluent Uzbek. - Family history: Not pertinent. - : The pt / caregiver states he / she is not on anticoagulants. Unable to Verify Home Med List with the patient / caregiver. - Exposure Risk Screening:: None identified. SOCIAL MEDIA COMMUNITY MANAGER: 06/20 18:54 LMP N/A - Irregular menses kr3 Vital Signs: 15:28 BP 119 / 76; Pulse 104; Resp 16; Temp 98.4(TE); Pulse Ox 99% on R/A; Pain 0/10; kcs 16:06 BP 131 / 78; Pulse 102; Resp 16; Weight 54.43 kg / 120 lbs (R); Height 5 ft. (152.40 kr3 cm) (R); 16:43 BP 113 / 85 (auto/); kr3 16:44 Pulse 101 MON; Resp 16; Pulse Ox 99% on R/A; kr3 17:00 BP 117 / 75 (auto/); kr3 17:01 Pulse 93 MON; Resp 16; Pulse Ox 100% on R/A; kr3 17:21 Pulse 93 MON; Resp 16; Pulse Ox 100% on R/A; kr3 17:28 Pulse 94 MON; kr3 17:30 BP 114 / 83 (auto/); kr3 18:00 BP 121 / 83 (auto/); kr3 18:01 Pulse 93 MON; Resp 16; Pulse Ox 100% on R/A; kr3 18:29 Pulse 102 MON; kr3 18:30 BP 120 / 91 (auto/); kr3 19:00 BP 128 / 81 (auto/); mlc 19:01 Pulse 92 MON; mlc 19:30 BP 126 / 80 (auto/); mlc 19:30 Pulse 90 MON; mlc 20:00 BP 121 / 82 (auto/); mlc 20:01 Pulse 90 MON; mlc 20:30 BP 119 / 88 (auto/); mlc 20:31 Pulse 88 MON; mlc 21:00 BP 130 / 86 (auto/); mlc 21:01 Pulse 88 MON; mlc 21:06 BP 122 / 83; Pulse 90; Resp 18; Temp 98.4; Pulse Ox 99% ; Pain 0/10; mlc 16:06 Body Mass Index 23.44 (54.43 kg, 152.40 cm) kr3 MDM: 15:34 Hop Weigher/Pulse Ox/q 30 min VS ordered. sd1 15:34 IV Saline Lock ordered. sd1 15:35 CT Head Without Contrast Ordered. EDMS 15:35 Acetaminophen Level Ordered. EDMS 15:35 Basic Metabolic Profile Ordered. EDMS 15:35 Complete Blood Count Ordered. EDMS 15:35 Drug Eval Toxicology ED Only Ordered. EDMS 15:35 Ethyl Alcohol (ethanol) Ordered. EDMS 15:35 Liver Profile Ordered. EDMS 15:35 Salicylate Level Ordered. EDMS 15:35 Thyroid Stimulating Hormone Ordered. EDMS 15:35 HCG,Serum Qualitative Ordered. EDMS 15:36 NS 0.9% 1000 ml IV at 250 mL/hr continuous ordered. sd1 15:36 ECG WITH READING ER PHYS+CARDIAG ordered. EDMS 15:36 Venous Blood Gas (large pea green tube on ice) Ordered. EDMS 15:36 Ammonia (Little Green Tube on Ice, Not Pea Green) Ordered. EDMS 15:40 BED REQUEST+ADM ordered. EDMS 16:05 Venous Blood Gas (large pea green tube on ice) Reviewed. sd1 16:29 Complete Blood Count Reviewed. sd1 16:29 Drug Eval Toxicology ED Only Reviewed. sd1 16:29 HCG,Serum Qualitative Reviewed. sd1 16:29 Ammonia (Little Green Tube on Ice, Not Pea Green) Reviewed. sd1 16:40 Acetaminophen Level Reviewed. sd1 16:40 Basic Metabolic Profile Reviewed. sd1 16:40 Liver Profile Reviewed. sd1 16:40 Salicylate Level Reviewed. sd1 16:40 Thyroid Stimulating Hormone Reviewed. sd1 16:40 Ethyl Alcohol (ethanol) Reviewed. sd1 16:40 HCG,Serum Qualitative Reviewed. sd1 16:41 Misc. Nursing Order ordered. sd1 17:30 CT Head Without Contrast Reviewed. sd1 17:33 Accucheck ordered. sd1 17:34 Osmolality, Serum Ordered. EDMS 17:49 Fingerstick Blood Sugar Ordered. EDMS 18:08 ERYTHROCYTE SEDIMENTATION RATE Ordered. EDMS 18:08 C REACTIVE PROTEIN QUANTITATIV Ordered. EDMS 18:08 PROLACTIN Ordered. EDMS 18:09 MRI Brain without Contrast Ordered. EDMS 18:12 Admission / Observation Status ordered. EDMS 18:12 ELECTROCARDIOGRAM ADULT ordered. EDMS 18:12 REGULAR DIET ordered. EDMS 18:28 CREATINE PHOSPHOKINASE Ordered. EDMS 19:14 [facility] Payment Agreement was scanned into [employer] and attached to record. [facility] [place] 19:14 Financial registration complete. gjb 19:32 COMPLETE BLOOD COUNT Ordered. EDMS 19:32 COMPLETE COMPHRENSIVE METABOLI Ordered. EDSC 06/21 10:19 T-Sheet-- Draft Copy was scanned into [employer] and attached to record. gb 10:19 ECG/EKG was scanned into [employer] and attached to record. gb Administered Medications: 06/20 15:55 Drug: NS 0.9% 1000 ml [sodium chloride 0.9 % intravenous solution] Route: IV; Rate: 250 kr3 mL/hr; Site: left forearm; Signatures: Dispatcher [employer] [facility] Monica Mills MD MD sd1 Natacha Shen, Reg Reg gb Ariel Le, Animal Pathology Teacher Unit ml3 Cookie Moise RN RN kr3 Ana Tompkins RN RN mlc Beck, Gabriela gjb The chart was reviewed and I authenticate all verbal orders and agree with the evaluation and treatment provided.Corrections: (The following items were deleted from the chart) 18:28 17:34 CREATINE PHOSPHOKINASE+LAB ordered. [facility] EDMS Attachments: 19:14 [facility] Payment Agreement [facility] [place] 06/21 10:19 T-Sheet-- Draft Copy gb 10:19 ECG/EKG gb Chart Complete MTDD
--- NOTE | 2016-06-22 22:09 | EDDOCDS ---
Physician Documentation [facility] Name: Willow Ortiz Age: 26 yrs Sex: Female : 1990 Arrival Date: 06/20/2016 Time: 15:24 Bed 3 Private MD: Disposition: 06/20/16 17:32 Hospitalization ordered by Abel Nunez for Inpatient Admission. Preliminary diagnosis is Altered mental status, unspecified - suspected ingestion. - Bed requested for PCU. - Status is Inpatient Admission. mlc - Condition is Stable. - Problem is new. - Symptoms are unchanged. Historical: - Allergies: PENICILLINS; - Home Meds: 1. diphenhydramine HCl 25 mg Oral cap found in pants pocket - PMHx: Depression; Bipolar disorder; Substance Abuse; - PSHx: Unable to obtain; - Social history: Smoking status: Patient uses tobacco products, current every day smoker. No barriers to communication noted, The patient speaks fluent Faroese. - Family history: Not pertinent. - : The pt / caregiver states he / she is not on anticoagulants. Unable to Verify Home Med List with the patient / caregiver. - Exposure Risk Screening:: None identified. 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 (152.40 kr3 cm) (R); 16:43 BP 113 / 85 (auto/); kr3 16:44 Pulse 101 MON; Resp 16; Pulse Ox 99% on R/A; kr3 17:00 BP 117 / 75 (auto/); kr3 17:01 Pulse 93 MON; Resp 16; Pulse Ox 100% on R/A; kr3 17:21 Pulse 93 MON; Resp 16; Pulse Ox 100% on R/A; kr3 17:28 Pulse 94 MON; kr3 17:30 BP 114 / 83 (auto/); kr3 18:00 BP 121 / 83 (auto/); kr3 18:01 Pulse 93 MON; Resp 16; Pulse Ox 100% on R/A; kr3 18:29 Pulse 102 MON; kr3 18:30 BP 120 / 91 (auto/); kr3 19:00 BP 128 / 81 (auto/); mlc 19:01 Pulse 92 MON; mlc 19:30 BP 126 / 80 (auto/); mlc 19:30 Pulse 90 MON; mlc 20:00 BP 121 / 82 (auto/); mlc 20:01 Pulse 90 MON; mlc 20:30 BP 119 / 88 (auto/); mlc 20:31 Pulse 88 MON; mlc 21:00 BP 130 / 86 (auto/); mlc 21:01 Pulse 88 MON; mlc 21:06 BP 122 / 83; Pulse 90; Resp 18; Temp 98.4; Pulse Ox 99% ; Pain 0/10; mlc 16:06 Body Mass Index 23.44 (54.43 kg, 152.40 cm) kr3 MDM: 15:34 Real Estate Management Specialist/Pulse Ox/q 30 min VS ordered. sd1 15:34 IV Saline Lock ordered. sd1 15:35 CT Head Without Contrast Ordered. EDMS 15:35 Acetaminophen Level Ordered. EDMS 15:35 Basic Metabolic Profile Ordered. EDMS 15:35 Complete Blood Count Ordered. EDMS 15:35 Drug Eval Toxicology ED Only Ordered. EDMS 15:35 Ethyl Alcohol (ethanol) Ordered. EDMS 15:35 Liver Profile Ordered. EDMS 15:35 Salicylate Level Ordered. EDMS 15:35 Thyroid Stimulating Hormone Ordered. EDMS 15:35 HCG,Serum Qualitative Ordered. EDMS 15:36 NS 0.9% 1000 ml IV at 250 mL/hr continuous ordered. sd1 15:36 ECG WITH READING ER PHYS+CARDIAG ordered. EDMS 15:36 Venous Blood Gas (large pea green tube on ice) Ordered. EDMS 15:36 Ammonia (Little Green Tube on Ice, Not Pea Green) Ordered. EDMS 15:40 BED REQUEST+ADM ordered. EDMS 16:05 Venous Blood Gas (large pea green tube on ice) Reviewed. sd1 16:29 Complete Blood Count Reviewed. sd1 16:29 Drug Eval Toxicology ED Only Reviewed. sd1 16:29 HCG,Serum Qualitative Reviewed. sd1 16:29 Ammonia (Little Green Tube on Ice, Not Pea Green) Reviewed. sd1 16:40 Acetaminophen Level Reviewed. sd1 16:40 Basic Metabolic Profile Reviewed. sd1 16:40 Liver Profile Reviewed. sd1 16:40 Salicylate Level Reviewed. sd1 16:40 Thyroid Stimulating Hormone Reviewed. sd1 16:40 Ethyl Alcohol (ethanol) Reviewed. sd1 16:40 HCG,Serum Qualitative Reviewed. sd1 16:41 Misc. Nursing Order ordered. sd1 17:30 CT Head Without Contrast Reviewed. sd1 17:33 Accucheck ordered. sd1 17:34 Osmolality, Serum Ordered. EDMS 17:49 Fingerstick Blood Sugar Ordered. EDMS 18:08 ERYTHROCYTE SEDIMENTATION RATE Ordered. EDMS 18:08 C REACTIVE PROTEIN QUANTITATIV Ordered. EDMS 18:08 PROLACTIN Ordered. EDMS 18:09 MRI Brain without Contrast Ordered. EDMS 18:12 Admission / Observation Status ordered. EDMS 18:12 ELECTROCARDIOGRAM ADULT ordered. EDMS 18:12 REGULAR DIET ordered. EDMS 18:28 CREATINE PHOSPHOKINASE Ordered. EDMS 19:14 [facility] Payment Agreement was scanned into [employer] and attached to record. [facility] 19:14 Financial registration complete. gjb 19:32 COMPLETE BLOOD COUNT Ordered. EDMS 19:32 COMPLETE COMPHRENSIVE METABOLI Ordered. EDIA 06/21 10:19 T-Sheet-- Draft Copy was scanned into [employer] and attached to record. gb 10:19 ECG/EKG was scanned into [employer] and attached to record. gb Administered Medications: 06/20 15:55 Drug: NS 0.9% 1000 ml [sodium chloride 0.9 % intravenous solution] Route: IV; Rate: 250 kr3 mL/hr; Site: left forearm; Signatures: Dispatcher [employer] [facility] Monica Mills MD MD sd1 Natacha Shen, Reg Reg gb Ariel Le, Entry Level Project Coordinator Unit ml3 Cookie Moise RN RN kr3 Ana Tompkins RN RN mlc Beck, Gabriela gjb The chart was reviewed and I authenticate all verbal orders and agree with the evaluation and treatment provided.Corrections: (The following items were deleted from the chart) 18:28 17:34 CREATINE PHOSPHOKINASE+LAB ordered. [facility] EDMS Attachments: 19:14 [facility] Payment Agreement [facility] 06/21 10:19 T-Sheet-- Draft Copy gb 10:19 ECG/EKG gb Chart Complete MTDD
--- NOTE | 2016-06-22 22:09 | EDDOCDS ---
Nurse's Notes [facility] Name: Willow Ortiz Age: 26 yrs Sex: Female : 1990 Arrival Date: 06/20/2016 Time: 15:24 Bed 3 Private MD: Diagnosis: Altered mental status, unspecified-suspected ingestion Presentation: 06/20 15:28 Transition of care: patient was not received from another setting of care. kr3 15:28 Presenting complaint: EMS states: seizure while at work, witnessed by staff. kr3 Status: Patient is not a produce service team member or dependent. Care prior to arrival: Glucose check. 121. 15:28 Acuity: STEPHAN Level 3 kr3 15:28 Method Of Arrival: Ambulance kr3 15:31 Adult Sepsis Screening: Patient has new or worsening altered mentation (1 point). kr3 Patient's respiratory rate is less than 22. Systolic blood pressure is greater than 100. Patient has a qSOFA score of 1- Negative Sepsis Screen. 18:54 Suicide/Homicide risk assessment- the patient denies having any suicidal and/or kr3 homicidal ideations and does not present with any other emotional, behavioral or mental health complaints. Triage Assessment: 16:01 General: Appears in no apparent distress, Behavior is restless. Pain: Denies pain. HIV kr3 screening NA for this visit unable to answer appropriately. The patient is triaged at the bedside. See Assessment in Nurses Notes section of ED record. Neurological: Level of Consciousness is awake, confused. GANDY DANCER: 18:54 LMP N/A - Irregular menses kr3 Historical: - Allergies: PENICILLINS; - Home Meds: 1. diphenhydramine HCl 25 mg Oral cap found in pants pocket - PMHx: Depression; Bipolar disorder; Substance Abuse; - PSHx: Unable to obtain; - Social history: Smoking status: Patient uses tobacco products, current every day smoker. No barriers to communication noted, The patient speaks fluent Kinyarwanda. - Family history: Not pertinent. - : The pt / caregiver states he / she is not on anticoagulants. Unable to Verify Home Med List with the patient / caregiver. - Exposure Risk Screening:: None identified. Screenin:07 Screening information is obtained from the patient. Fall risk: At risk due to apparent kr3 cognitive impairment. Assistance ADL's: requires no assistance with activities of daily living. Abuse/DV Screen: Unable to Assess. Nutritional screening: No deficits noted. Advance Directives: Currently, there is no health care proxy. home support. 18:54 Abuse/DV Screen: The patient / caregiver reports he/she is: not in a situation that kr3 causes fear, pain or injury. Assessment: 16:02 Reassessment: Patient appears in no apparent distress at this time. General: Behavior kr3 is cooperative with redirection. attempts have been made to remove IV and get off stretcher. patient is reminded to leave IV alone and stay on stretcher and reports I forget. . Pain: Denies pain. 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 wants to get off stretcher to get book bag. Cardiovascular: Rhythm is regular. Respiratory: Respiratory effort is even, unlabored. Derm: Skin is normal. 16:21 Reassessment: confused about events, reoriented. Boyfriend at bedside and reports no kr3 history of seizures. 17:32 Adult Sepsis Screening: The patient does not have new or worsening altered mentation. kr3 Patient's respiratory rate is less than 22. Systolic blood pressure is greater than 100. Patient has a qSOFA score of 0- Negative Sepsis Screen. 17:35 Reassessment: Patient appears in no apparent distress at this time. General: Behavior kr3 is cooperative. Neurological: Level of Consciousness is awake, confused, Oriented to person, when asked her [place] at [place]. Aware it is 2016 but thinks it is April. Moves all extremities. 18:21 Reassessment: Patient appears in no apparent distress at this time. Neurological: Level kr3 of Consciousness is awake, confused, Oriented to person, confused as to place and date. Recognizes boyfriend and will follow commands. 18:52 Reassessment: Patient appears in no apparent distress at this time. Patient denies pain kr3 at this time. Neurological: Level of Consciousness is awake, Oriented to person, place, aware it is winter and is 2017, not sure of month. Moves all extremities. Speech is normal. Derm: Skin is normal. 19:31 General: Appears in no apparent distress, comfortable, Behavior is cooperative, mlc pleasant. General: pt asking for creamer for her coffee which she states "is downstairs". Pain: Denies pain. Neurological: Level of Consciousness is awake, confused, obeys commands, Oriented to person, place. Cardiovascular: Capillary refill < 3 seconds Heart tones S1 S2 present Rhythm is regular. Respiratory: Airway is patent Respiratory effort is even, unlabored, Respiratory pattern is regular, Breath sounds are clear bilaterally. Derm: Skin is normal. 20:33 Reassessment: Patient appears in no apparent distress at this time. pt resting in bed, mlc resp easy/unlabored. no changes since prior. 21:05 General: Appears in no apparent distress, comfortable, Behavior is cooperative. Pain: mlc Denies pain. Neurological: Level of Consciousness is awake, obeys commands, Oriented to person, place. Respiratory: Airway is patent Respiratory effort is even, unlabored, Respiratory pattern is regular. 21:05 Derm: Bruising that is on forehead. [facility] Vital Signs: 15:28 BP 119 / 76; Pulse 104; Resp 16; Temp 98.4(TE); Pulse Ox 99% on R/A; Pain 0/10; kcs 16:06 BP 131 / 78; Pulse 102; Resp 16; Weight 54.43 kg (R); Height 5 ft. (152.40 cm) (R); kr3 16:43 BP 113 / 85 (auto/); kr3 16:44 Pulse 101 MON; Resp 16; Pulse Ox 99% on R/A; kr3 17:00 BP 117 / 75 (auto/); kr3 17:01 Pulse 93 MON; Resp 16; Pulse Ox 100% on R/A; kr3 17:21 Pulse 93 MON; Resp 16; Pulse Ox 100% on R/A; kr3 17:28 Pulse 94 MON; kr3 17:30 BP 114 / 83 (auto/); kr3 18:00 BP 121 / 83 (auto/); kr3 18:01 Pulse 93 MON; Resp 16; Pulse Ox 100% on R/A; kr3 18:29 Pulse 102 MON; kr3 18:30 BP 120 / 91 (auto/); kr3 19:00 BP 128 / 81 (auto/); mlc 19:01 Pulse 92 MON; mlc 19:30 BP 126 / 80 (auto/); mlc 19:30 Pulse 90 MON; mlc 20:00 BP 121 / 82 (auto/); mlc 20:01 Pulse 90 MON; mlc 20:30 BP 119 / 88 (auto/); mlc 20:31 Pulse 88 MON; mlc 21:00 BP 130 / 86 (auto/); mlc 21:01 Pulse 88 MON; mlc 21:06 BP 122 / 83; Pulse 90; Resp 18; Temp 98.4; Pulse Ox 99% ; Pain 0/10; mlc 16:06 Body Mass Index 23.44 (54.43 kg, 152.40 cm) kr3 Vitals: 15:32 Log In Time N/A - ambulance arrival. kr3 ED Course: 15:25 Patient visited by Xenia Buckley, Jewel Inspector. deg 15:25 Patient moved to Waiting deg 15:26 Monica Mills MD is Attending Physician. sd1 15:26 Patient moved to 11 deg 15:28 Patient visited by Monica Mills MD. sd1 15:29 Triage Initiated kr3 15:36 Patient moved to 3 sd1 15:52 Cookie Moise,JANENE is Primary Nurse. kr3 16:00 Drug Eval Toxicology ED Only Sent. kr3 16:01 Maintain field IV. Dressing intact. Site clean & dry. Gauge & site: #18 left forearm. kr3 16:06 The patient / caregiver is instructed regarding the plan of care and ED course. Patient kr3 has correct armband on for positive identification. Placed in gown. Bed in low position. Side rails up X2. Seizure precautions initiated. hospital monitor on. Pulse ox on. NIBP on. 16:12 EKG done. (by ED staff). Reviewed by Monica Mills MD. dem1 16:20 Patient visited by Cookie Moise,JANENE. kr3 16:21 Patient visited by Kyleigh Pham. dem1 17:18 CT Head Without Contrast Returned. EDMS 17:24 Patient visited by Almaz Walker PCA. ct3 17:31 Abel Nunez is Hospitalizing Provider. sd1 17:33 Patient visited by Cynthia Mccray,JANENE. lf1 17:33 Assisted to bedside commode. lf1 18:54 No procedures done that require assistance. kr3 19:00 Ana Tompkins,JANENE is Primary Nurse. mlc 19:00 Primary Nurse role handed off by Cookie Moise,JANENE kr3 19:14 [facility] Payment Agreement was scanned into [employer] and attached to record. gjb 19:35 Patient visited by Ana Tompkins RN. mlc 06/21 10:19 T-Sheet-- Draft Copy was scanned into [employer] and attached to record. gb 10:19 ECG/EKG was scanned into [employer] and attached to record. gb Administered Medications: 06/20 15:55 Drug: NS 0.9% 1000 ml [sodium chloride 0.9 % intravenous solution] Route: IV; Rate: 250 kr3 mL/hr; Site: left forearm; Output: 17:33 Urine: 300.00ml (Voided); Total: 300.00ml. lf1 Order Results: Lab Order: Acetaminophen Level; SPEC'M 06/20/16 15:49 Test: ACETAMINOPHEN LEVEL; Value: < 2.0; Range: 10.0-30.0; Abnormal: Below low normal; Units: UG/ML; Status: F Lab Order: Basic Metabolic Profile; SPEC'M 06/20/16 15:49 Test: GLUCOSE, FASTING; Value: 67; Range: 70-105; Abnormal: Below low normal; Units: MG/DL; Status: F Test: BLOOD UREA NITROGEN; Value: 9; Range: 7-18; Units: MG/DL; Status: F Test: CREATININE FOR GFR; Value: 0.63; Range: 0.55-1.02; Units: MG/DL; Status: F Test: SODIUM LEVEL; Range: 136-145; Units: MEQ/L; Status: I Test: POTASSIUM SERUM; Range: 3.5-5.1; Units: MEQ/L; Status: I Test: CHLORIDE LEVEL; Range: 98-107; Units: MEQ/L; Status: I Test: CARBON DIOXIDE LEVEL; Range: 21-32; Units: MEQ/L; Status: I Test: ANION GAP; Range: 8-16; Units: MEQ/L; Status: I Test: CALCIUM LEVEL; Range: 8.5-10.1; Units: MG/DL; Status: I Test: GLOMERULAR FILTRATION RATE; Value: > 60.0; Range: >60; Status: F Test: SODIUM LEVEL; Value: 140; Range: 136-145; Units: MEQ/L; Status: F Test: POTASSIUM SERUM; Value: 3.8; Range: 3.5-5.1; Units: MEQ/L; Status: F Test: CHLORIDE LEVEL; Value: 104; Range: 98-107; Units: MEQ/L; Status: F Test: CARBON DIOXIDE LEVEL; Value: 26; Range: 21-32; Units: MEQ/L; Status: F Test: ANION GAP; Value: 10; Range: 8-16; Units: MEQ/L; Status: F Test: CALCIUM LEVEL; Value: 8.3; Range: 8.5-10.1; Abnormal: Below low normal; Units: MG/DL; Status: F Test Note: ; Units are mL/min/1.73 m2 Chronic Kidney Disease Staging per NKF: Stage I & II GFR >=60 Normal to Mildly Decreased Stage III GFR 30-59 Moderately Decreased Stage IV GFR 15-29 Severely Decreased Stage V GFR <15 Very Little GFR Left ESRD GFR <15 on HEALTH INSURANCE SPECIALIST Lab Order: Complete Blood Count; [facility] 06/20/16 15:49 Test: WHITE BLOOD COUNT; Value: 8.0; Range: 4.0-10.0; Units: K/mm3; Status: F Test: RED BLOOD COUNT; Value: 3.71; Range: 4.00-5.40; Abnormal: Below low normal; Units: M/mm3; Status: F Test: HEMOGLOBIN; Value: 11.5; Range: 12.0-16.0; Abnormal: Below low normal; Units: g/dl; Status: F Test: HEMATOCRIT; Value: 34.9; Range: 36.0-47.0; Abnormal: Below low normal; Units: %; Status: F Test: MEAN CORPUSCULAR VOLUME; Value: 94.2; Range: 80.0-96.0; Units: fl; Status: F Test: MEAN CORPUSCULAR HEMOGLOBIN; Value: 31.0; Range: 27.0-33.0; Units: pg; Status: F Test: MEAN CORPUSCULAR HGB CONC; Value: 33.0; Range: 32.0-36.5; Units: g/dl; Status: F Test: RED CELL DISTRIBUTION WIDTH; Value: 13.7; Range: 11.5-14.5; Units: %; Status: F Test: PLATELET COUNT, AUTOMATED; Value: 240; Range: 150-450; Units: k/mm3; Status: F Lab Order: Drug Eval Toxicology ED Only; SPEC'M 06/20/16 15:59 Test: AMPHETAMINES LEVEL URINE; Value: NEGATIVE; Range: NEGATIVE; Status: F Test: BARBITURATES URINE; Value: NEGATIVE; Range: NEGATIVE; Status: F Test: BENZODIAZEPINES URINE; Value: NEGATIVE; Range: NEGATIVE; Status: F Test: CANNABINOIDS URINE; Value: NEGATIVE; Range: NEGATIVE; Status: F Test: COCAINE METABOLITE URINE; Value: NEGATIVE; Range: NEGATIVE; Status: F Test: METHADONE URINE; Value: NEGATIVE; Range: NEGATIVE; Status: F Test: OPIATES URINE; Value: NEGATIVE; Range: NEGATIVE; Status: F Test: TRICYCLIC ANTIDEPRESS URINE; Value: NEGATIVE; Range: NEGATIVE; Status: F Test Note: ; ALL PRESUMPTIVE POSITIVE FINDINGS ARE UNCONFIRMED NORMAL VALUES THRESHOLD IN NG/ML AMPHETAMINES 1000 METHAMPHETAMINES 1000 BARBITURATES 300 BENZODIAZEPINES 300 CANNABINOIDS (THC) 50 COCAINE METABOLITE 300 METHADONE 300 OPIATES 300 PHENCYCLIDINE 25 TRICYCLIC ANTIDEPRESSANTS 1000 RESULTS ARE FOR MEDICAL PURPOSES ONLY. ALL URINE SPECIMENS WILL BE SAVED FOR 3 DAYS. IF CONFIRMATION OF A PRESUMPTIVE POSTIVE SCREEN RESULT IS DESIRED, CALL CHEMISTRY ([phone]) AND REQUEST URINE TO BE SENT TO REFERENCE LAB. FOR A LIST OF CLOSELY RELATED COMPOUNDS PLEASE CALL THE LAB. Lab Order: Ethyl Alcohol (ethanol); SPEC'M 06/20/16 15:49 Test: ETHYL ALCOHOL (ETHANOL); Value: 0.003; Range: 0.000-0.010; Units: %; Status: F Lab Order: Liver Profile; SPEC'M 06/20/16 15:49 Test: AST/SGOT; Value: 43; Range: 15-37; Abnormal: Above high normal; Units: U/L; Status: F Test: ALT/SGPT; Value: 63; Range: 12-78; Units: U/L; Status: F Test: ALKALINE PHOSPHATASE; Value: 52; Range: 45-117; Units: U/L; Status: F Test: BILIRUBIN,TOTAL; Value: 0.3; Range: 0.2-1.0; Units: MG/DL; Status: F Test: BILIRUBIN,DIRECT; Value: 0.1; Range: 0.0-0.2; Units: MG/DL; Status: F Test: TOTAL PROTEIN; Value: 6.8; Range: 6.4-8.2; Units: GM/DL; Status: F Test: ALBUMIN; Value: 4.2; Range: 3.2-5.2; Units: GM/DL; Status: F Test: ALBUMIN/GLOBULIN RATIO; Value: 1.62; Range: 1.00-1.93; Status: F Lab Order: Salicylate Level; SPEC' 06/20/16 15:49 Test: SALICYLATE LEVEL; Value: 3.3; Range: 5.0-30.0; Abnormal: Below low normal; Units: MG/DL; Status: F Lab Order: Thyroid Stimulating Hormone; SPEC' 06/20/16 15:49 Test: THYROID STIMULATING HORMONE; Value: 5.890; Range: 0.358-3.740; Abnormal: Above high normal; Units: uIU/ML; Status: F Lab Order: HCG,Serum Qualitative; SPEC' 06/20/16 15:49 Test: HCG, SERUM QUALITATIVE; Value: NEGATIVE; Range: NEGATIVE; Status: F Lab Order: Venous Blood Gas (large pea green tube on ice); SPEC' 06/20/16 15:49 Test: VENOUS PH; Value: 7.399; Range: 7.330-7.430; Units: UNITS; Status: F Test: VENOUS PARTIAL PRESSURE CO2; Value: 40.9; Range: 38.0-50.0; Units: mmHg; Status: F Test: VENOUS PARTIAL PRESSURE O2; Value: 53.2; Range: 30.0-50.0; Abnormal: Above high normal; Units: mmHg; Status: F Test: VENOUS TOTAL CO2; Value: 26.0; Range: 24.0-28.0; Units: MEQ/L; Status: F Test: VENOUS HCO3; Value: 24.7; Range: 23.0-27.0; Units: MEQ/L; Status: F Test: VENOUS BASE EXCESS; Value: -0.1; Range: -2.0-2.0; Status: F Test: VENOUS STANDARD HCO3; Value: 24.2; Units: MEQ/L; Status: F Test: VENOUS O2 SATURATION; Value: 87.5; Range: 60.0-80.0; Abnormal: Above high normal; Units: %; Status: F Lab Order: Ammonia (Little Green Tube on Ice, Not Pea Green); [facility] 06/20/16 15:49 Test: AMMONIA; Value: 17; Range: <32; Units: uMOL/L; Status: F Lab Order: Osmolality, Serum; 06/20/16 18:17 Test: OSMOLALITY SERUM; Value: 290; Range: 275-295; Units: MOSM/KG; Status: F Lab Order: Fingerstick Blood Sugar; 06/20/16 17:40 Test: BEDSIDE GLUCOSE; Value: 117; Range: 70-105; Abnormal: Above high normal; Units: MG/DL; Status: F Test Note: ; Doctor Notified Lab Order: ERYTHROCYTE SEDIMENTATION RATE; 06/20/16 18:17 Test: ERYTHROCYTE SEDIMENTATION RATE; Value: 8; Range: 0-20; Units: mm/hr; Status: F Lab Order: C REACTIVE PROTEIN QUANTITATIV; [facility] 06/20/16 18:17 Test: C REACTIVE PROTEIN QUANTITATIV; Value: < 0.30; Range: 0.00-0.30; Units: MG/DL; Status: F Lab Order: PROLACTIN; 06/20/16 18:17 Test: PROLACTIN; Value: 14.8; Units: NG/ML; Status: F Test Note: ; Non-: 2.8 - 29.2 ng/mL : 9.7 - 208.5 ng/mL Post Menopausal: 1.8 - 20.3 ng/mL Lab Order: CREATINE PHOSPHOKINASE; 06/20/16 18:17 Test: CPK CREATINE PHOSPHOKINASE; Value: 118; Range: 26-192; Units: U/L; Status: F Radiology Order: CT Head Without Contrast Test: CT Head Without Contrast REASON FOR EXAMINATION: altered mental status; CT Head without contrast; ; HISTORY: Altered mental status; ; COMPARISON: 04/14/2010; ; There is no intraparenchymal hemorrhage, acute infarct, mass or midline shift.; The ventricular system is normal in appearance. There is no extra cerebral; collection. There is no fracture. The visualized sinuses are clear.; ; IMPRESSION: There is no intracranial lesion.; ; ; ; ; Signed by; Josep Moreira MD 06/20/2016 04:42 P; Outcome: 17:32 Decision to Hospitalize by Provider. sd1 18:53 CT Study completed. kr3 21:06 Discharge Assessment: Patient awake, alert and oriented x 3. No cognitive and/or mlc functional deficits noted. Patient verbalized understanding of disposition instructions. patient administered narcotics - no. The following High Risk Discharge criteria are identified: None. Admitted to PCU accompanied by nurse, accompanied by tech, via stretcher, on monitor, with chart. Condition: stable. Property :Personal belongings accompany Pt. 21:08 Patient left the ED. mlc Signatures: Dispatcher [employer] EDMS Monica Mills MD MD sd1 Laila Grissom, RN RN kcs Xenia Buckley, Jewel Inspector Unit deg Natacha Shen, Cookie Pace,RN RN dante3 Cynthia Mccray RN RN lf1 Denise, Almaz, SPECIAL PROCEDURES TECH SPECIAL PROCEDURES TECH ct3 Kyleigh Pham dem1 Ana TompkinsRN RN Blanca Cantrell Corrections: (The following items were deleted from the chart) 18:32 17:21 Pulse 93bpm; Monitor; Pulse Ox 100%; kr3 kr3 18:32 17:01 Pulse 93bpm; Monitor; Pulse Ox 100%; kr3 kr3 18:32 16:44 Pulse 101bpm; Monitor; Pulse Ox 99%; kr3 kr3 Chart Complete MTDD
--- NOTE | 2016-06-23 00:31 | ECGEPIP ---
Stationary ECG Study [facility] Test Date: 2016-06-21 Pat Name: SHEILA VELÁSQUEZ Department: Room: [place] [address] Gender: F Utilization Management Manager: KAREL : 1990 Requested By: FABRICIO TERRAZAS Order Number: [id number] Reading MD: Niles Lewis Measurements Intervals [place] Rate: 74 P: 57 VT: 157 QRS: 89 QRSD: 85 T: 68 QT: 425 QTc: 474 Interpretive Statements SINUS RHYTHM Compared to the last 2 tracings in the system, no significant changes Electronically Signed On 06-23-2016 0:31:25 EST by Niles Lewis
--- NOTE | 2016-06-24 08:29 | DSES ---
DATE OF ADMISSION: 06/20/2016 DATE OF DISCHARGE/AGAINST MEDICAL ADVICE: 06/21/2016 PRIMARY CARE PROVIDER: HUMBERTO Clinton, [facility] PROCEDURES: None. CONSULTATIONS: None. DIAGNOSTIC IMAGING: CT of the head without intracranial lesion. Brain MRI with no intracranial lesion. EEG notes drowsy state and awake state within normal limits. DISCHARGE DIAGNOSES: 1. Possible seizure. 2. History of alcohol abuse. 3. Prior history of tobacco abuse. BRIEF HOSPITALIZATION COURSE: Ms. Ortiz is a 26-year-old female with past medical history mentioned above, who was brought in by her boyfriend, who reportedly was concerned of seizure-like activity, which happened while at work. Episode was not witnessed, though the boyfriend noticed that on the phone her speech was incoherent. There was initial concern that she might have had anticholinergic toxicity, though her signs and symptoms were not supportive of this. Because of concern for seizure, she was admitted to progressive care unit (PCU) for further evaluation and had EEG and MRI and CT, as mentioned above. The patient was recommended to stay for further monitoring regarding her symptoms; however, on 06/21/2016, she was adamant about leaving and decided to leave against medical advice despite knowing the risks, including injury, trauma and . PHYSICAL EXAMINATION: For physical examination, please see dictation dictated earlier today. DISCHARGE CONDITION: Stable. ACTIVITY: As tolerated. The patient is to not drive until further evaluation by a neurologist. Avoid swimming in swimming pools, climbing a ladder, or anything that can put her at risk for recurrence of her possible seizure until further evaluation. DISCHARGE MEDICATIONS: None. The patient signed out against medical advice. DIET: Regular. The patient should return to the hospital if she has worsening or recurrent symptoms. My preceptor for this patient encounter was Dr. Felipe. The preceptor was physically present in the building during the encounter and was fully available. As needed, all aspects of the patient interview, examination, medical decision making process, and medical care plan development were reviewed and approved by the preceptor. The preceptor is aware and concurs with the plan as stated in the body of this note and will attest to such by his/her cosignature. TONYA
== END 2016-06-21 13:35 | disposition left against medical advice (07) | DRG 53 ==
LOC: M ED 15:24 → M ED INP 18:08 → M PCU 21:13
PROVIDERS: ADMIT Internal Medicine; ATTEND Internal Medicine
DX: R56.9 Unspecified convulsions (principal); F32.9 Major depressive disorder, single episode, unspecified; F31.9 Bipolar disorder, unspecified; Z88.0 Allergy status to penicillin; F17.200 Nicotine dependence, unspecified, uncomplicated; F10.10 Alcohol abuse, uncomplicated

== ENCOUNTER → 2016-07-17 | Outpatient (CLI) | payer OTHER ==
[~2016-07-17] MED LIST changes: -THIAMINE 100 MG TAB PO SCH
== END ==
LOC: M OUTALCOH 09:20
PROVIDERS: ATTEND Psychiatry & Neurology Psychiatry
DX: Z13.9 Encounter for screening, unspecified (principal); F10.20 Alcohol dependence, uncomplicated

== ENCOUNTER → 2016-07-18 | Outpatient (CLI) | payer OTHER ==
[~2016-07-18] MED LIST changes: +KEPP1TAB2 PO
[2016-07-18 08:08] LABS: BASO % 0.4 % (0.0-1.0); EOS # 0.2 K/mm3 (0.0-0.50); EOS % 2.7 % (0.0-3.0); LARGE UNSTAINED CELL # 0.1 K/mm3 (0.0-0.4); LARGE UNSTAINED CELL % 1.9 % (0.0-4.0); LYMPH # 1.6 K/mm3 (1.5-6.5); LYMPH % 25.8 % (24.0-44.0); MEAN CORPUSCULAR HEMOGLOBIN 32.8 pg (27.0-33.0); MEAN CORPUSCULAR HGB CONC 33.8 g/dl (32.0-36.5); MEAN CORPUSCULAR VOLUME 97.2 fl (80.0-96.0); MONO # 0.4 K/mm3 (0.0-0.8); MONO % 6.2 % (0.0-5.0); NEUTROPHILS # 3.8 K/mm3 (1.8-7.7); PLATELET COUNT, AUTOMATED 269 k/mm3 (150-450); RED CELL DISTRIBUTION WIDTH 12.8 % (11.5-14.5)
[2016-07-18 08:38] LABS: ALBUMIN 4.1 GM/DL (3.2-5.2); ALBUMIN/GLOBULIN RATIO 1.41 (1.00-1.93); ALKALINE PHOSPHATASE 52 U/L (45-117); ALT/SGPT 27 U/L (12-78); ANION GAP 7 MEQ/L (8-16); AST/SGOT 19 U/L (15-37); BILIRUBIN,TOTAL 0.3 MG/DL (0.2-1.0); BLOOD UREA NITROGEN 10 MG/DL (7-18); CALCIUM LEVEL 8.4 MG/DL (8.5-10.1); CARBON DIOXIDE LEVEL 29 MEQ/L (21-32); CHLORIDE LEVEL 107 MEQ/L (98-107); CHOLESTEROL LEVEL 194 MG/DL (<200); CREATININE FOR GFR 0.61 MG/DL (0.55-1.02); FREE T4 0.81 NG/DL (0.76-1.46); GLOMERULAR FILTRATION RATE > 60.0 (>60); GLUCOSE, FASTING 87 MG/DL (70-105); POTASSIUM SERUM 4.5 MEQ/L (3.5-5.1); SODIUM LEVEL 143 MEQ/L (136-145); TRIGLYCERIDES LEVEL 74 MG/DL (<150)
== END ==
LOC: M LAB 07:20
PROVIDERS: ATTEND Nurse Practitioner Family
DX: R40.1 Stupor (principal); D64.9 Anemia, unspecified; E83.51 Hypocalcemia; E78.5 Hyperlipidemia, unspecified

== ENCOUNTER 2016-07-23 14:26 | Emergency (ER) | payer OTHER ==
[~2016-07-23 14:26] MED LIST changes: -KEPP1TAB2 PO
[2016-07-23] MEDS ORDERED: NS 1,000 ML IV ONE (15:15)
[2016-07-23 15:31] LABS: BASO % 0.2 % (0.0-1.0); EOS # 0.1 K/mm3 (0.0-0.50); EOS % 1.3 % (0.0-3.0); LARGE UNSTAINED CELL # 0.2 K/mm3 (0.0-0.4); LARGE UNSTAINED CELL % 2.3 % (0.0-4.0); LYMPH # 1.3 K/mm3 (1.5-6.5); LYMPH % 20.8 % (24.0-44.0); MEAN CORPUSCULAR HEMOGLOBIN 32.2 pg (27.0-33.0); MEAN CORPUSCULAR VOLUME 94.7 fl (80.0-96.0); MONO # 0.5 K/mm3 (0.0-0.8); NEUTROPHILS # 4.4 K/mm3 (1.8-7.7); NEUTROPHILS % 68.5 % (36.0-66.0); PLATELET COUNT, AUTOMATED 209 k/mm3 (150-450); RED CELL DISTRIBUTION WIDTH 12.5 % (11.5-14.5); WHITE BLOOD COUNT 6.4 K/mm3 (4.0-10.0)
--- NOTE | 2016-07-23 15:56 | REP ---
CT Head without contrast HISTORY: Seizure COMPARISON: 06/20/2016 There is no intraparenchymal hemorrhage, acute infarct, mass or midline shift. The ventricular system is normal in appearance. There is no extra cerebral collection. There is no fracture. Minimal mucosal thickening is present in the ethmoid and right sphenoid sinuses. IMPRESSION: There is no intracranial lesion. Signed by Josep Moreira MD 07/23/2016 03:48 P
[2016-07-23 17:25] LABS: CONTROL LINE HCG INT CTR LINE PRESENT
[2016-07-23 17:44] LABS: ALBUMIN 4.6 GM/DL (3.2-5.2); ALBUMIN/GLOBULIN RATIO 1.48 (1.00-1.93); ALKALINE PHOSPHATASE 51 U/L (45-117); ALT/SGPT 23 U/L (12-78); ANION GAP 9 MEQ/L (8-16); AST/SGOT 21 U/L (15-37); BILIRUBIN,DIRECT 0.1 MG/DL (0.0-0.2); BILIRUBIN,TOTAL 0.3 MG/DL (0.2-1.0); BLOOD UREA NITROGEN 9 MG/DL (7-18); CALCIUM LEVEL 8.3 MG/DL (8.5-10.1); CARBON DIOXIDE LEVEL 23 MEQ/L (21-32); CHLORIDE LEVEL 107 MEQ/L (98-107); CREATININE FOR GFR 0.84 MG/DL (0.55-1.02); GLOMERULAR FILTRATION RATE > 60.0 (>60); GLUCOSE, FASTING 89 MG/DL (70-105); POTASSIUM SERUM 3.6 MEQ/L (3.5-5.1); SODIUM LEVEL 139 MEQ/L (136-145); TOTAL PROTEIN 7.7 GM/DL (6.4-8.2)
[2016-07-23 17:47] VITALS: BP 122/65
[2016-07-23] MEDS ORDERED: KEPP1TAB2 PO (19:11)
[2016-07-23] MEDS ORDERED: levETIRAcetam INJection 1,000 MG in D5W 100 ML IV ONE (19:15)
[2016-07-23 20:13] LABS: CONTROL LINE INT CTR LINE PRESENT; METHADONE URINE POSITIVE (NEGATIVE); TRICYCLIC ANTIDEPRESS URINE NEGATIVE (NEGATIVE)
== END 2016-07-23 21:25 | disposition home or self-care (01) ==
LOC: M ED 15:37
DX: G40.909 Epilepsy, unspecified, not intractable, without status epilepticus (principal); F17.210 Nicotine dependence, cigarettes, uncomplicated
CPT/HCPCS: 36415; 70450; 80048; 80076; 80306; 82140; 82550; 84443; 84703; 85025; 96374; 99283; G0480; J1953

== ENCOUNTER → 2016-08-23 | Outpatient (RCR) | payer OTHER ==
[~2016-08-23] MED LIST changes: +KEPP1TAB2 PO
== END ==
LOC: M OUTALCOH 08-05 08:40
PROVIDERS: ATTEND Psychiatry & Neurology Psychiatry
DX: Z13.9 Encounter for screening, unspecified (principal); F10.20 Alcohol dependence, uncomplicated; Z72.0 Tobacco use

== ENCOUNTER 2016-09-20 13:00 | Outpatient (RCR) | payer OTHER | END 2016-09-22 | LOC: M OUTALCOH 13:00 | PROVIDERS: ATTEND Psychiatry & Neurology Psychiatry | DX: Z13.9 Encounter for screening, unspecified (principal); F10.20 Alcohol dependence, uncomplicated; Z72.0 Tobacco use ==

== ENCOUNTER 2016-10-04 11:29 | Emergency (ER) | payer OTHER ==
[~2016-10-04] VITALS: Ht 154.9 cm; Wt 49.9 kg
[2016-10-04 11:30] VITALS: BP 109/69
[2016-10-04] MEDS ORDERED: ACET30TAB PO (11:56)
== END 2016-10-04 12:01 | disposition home or self-care (01) ==
LOC: M ED 11:56
DX: R51 Headache (principal); Z88.0 Allergy status to penicillin; F17.210 Nicotine dependence, cigarettes, uncomplicated

== ENCOUNTER 2016-10-10 22:28 | Emergency (ER) | payer MEDICAID, OTHER ==
[~2016-10-10] VITALS: Ht 154.9 cm; Wt 49.9 kg
[~2016-10-10 22:28] MED LIST changes: +ACET30TAB PO
[2016-10-10] MEDS ORDERED: levETIRAcetam INJection 750 MG in D5W 100 ML IV ONE (22:45)
[2016-10-10 23:15] LABS: ANION GAP 10 MEQ/L (8-16); BLOOD UREA NITROGEN 11 MG/DL (7-18); CARBON DIOXIDE LEVEL 24 MEQ/L (21-32); CHLORIDE LEVEL 106 MEQ/L (98-107); CREATININE FOR GFR 0.89 MG/DL (0.55-1.02); GLOMERULAR FILTRATION RATE > 60.0 (>60); GLUCOSE, FASTING 86 MG/DL (70-105); POTASSIUM SERUM 3.4 MEQ/L (3.5-5.1); SODIUM LEVEL 140 MEQ/L (136-145)
[2016-10-11 00:02] VITALS: BP 121/79
== END 2016-10-11 00:11 | disposition home or self-care (01) ==
LOC: EDBD 22:28 → M ED 23:09
DX: G40.909 Epilepsy, unspecified, not intractable, without status epilepticus (principal); F33.9 Major depressive disorder, recurrent, unspecified; F10.20 Alcohol dependence, uncomplicated; F19.10 Other psychoactive substance abuse, uncomplicated; Z79.899 Other long term (current) drug therapy; Z88.0 Allergy status to penicillin; F17.210 Nicotine dependence, cigarettes, uncomplicated

== ENCOUNTER 2016-10-13 14:09 | Emergency (ER) | payer OTHER ==
[~2016-10-13] VITALS: Ht 152.4 cm; Wt 49.9 kg
[2016-10-13 14:09] VITALS: BP 116/73
[2016-10-13] MEDS ORDERED: ORAB20GE TOP (14:30)
[2016-10-13] MEDS ORDERED: ACETAMINOPH W/CODEINE #3 TAB UD PO ONE (14:30)
== END 2016-10-13 15:04 | disposition home or self-care (01) ==
LOC: M ED 14:39
DX: K08.9 Disorder of teeth and supporting structures, unspecified (principal); F17.200 Nicotine dependence, unspecified, uncomplicated; Z79.899 Other long term (current) drug therapy; Z88.0 Allergy status to penicillin

== ENCOUNTER 2016-10-18 13:00 | Outpatient (RCR) | payer OTHER ==
[~2016-10-18 13:00] MED LIST changes: +ORAB20GE TOP
== END 2016-10-23 ==
LOC: M OUTALCOH 13:00
PROVIDERS: ATTEND Psychiatry & Neurology Psychiatry
DX: Z13.9 Encounter for screening, unspecified (principal); F10.20 Alcohol dependence, uncomplicated; Z72.0 Tobacco use

== ENCOUNTER → 2016-11-22 | Outpatient (RCR) | payer MEDICAID ==
[~2016-11-22] MED LIST changes: +KEPP10002 PO; +KEPP250T5 PO; +MACR100C43 PO; +PRENTAB40 PO
== END ==
LOC: M OUTALCOH 10-25 14:15
PROVIDERS: ATTEND Psychiatry & Neurology Psychiatry
DX: Z13.9 Encounter for screening, unspecified (principal); F10.20 Alcohol dependence, uncomplicated; Z72.0 Tobacco use

== ENCOUNTER 2016-12-05 20:45 | Observation (INO) | payer MEDICAID, OTHER ==
[~2016-12-05] VITALS: Ht 152.4 cm; Wt 49.2 kg
[~2016-12-05 20:45] MED LIST changes: -KEPP10002 PO; -KEPP250T5 PO; -MACR100C43 PO; -PRENTAB40 PO
[2016-12-05] MEDS ORDERED: KEPP10002 PO (20:59)
[2016-12-05] MEDS ORDERED: LORazepam 2 MG/ML VIAL (J2060) As Ordered ONE (21:30)
[2016-12-05] MEDS ORDERED: LORazepam 2 MG/ML VIAL (J2060) IV STA (21:32)
[2016-12-05] MEDS ORDERED: levETIRAcetam INJection 1,000 MG in D5W 100 ML IV ONE (21:45)
[2016-12-05 21:57] LABS: BASO % 0.3 % (0.0-1.0); EOS # 0.1 K/mm3 (0.0-0.50); EOS % 1.3 % (0.0-3.0); LARGE UNSTAINED CELL # 0.1 K/mm3 (0.0-0.4); LARGE UNSTAINED CELL % 1.2 % (0.0-4.0); LYMPH # 1.7 K/mm3 (1.5-6.5); LYMPH % 20.1 % (24.0-44.0); MEAN CORPUSCULAR HEMOGLOBIN 33.7 pg (27.0-33.0); MEAN CORPUSCULAR HGB CONC 34.6 g/dl (32.0-36.5); MEAN CORPUSCULAR VOLUME 97.5 fl (80.0-96.0); MONO # 0.4 K/mm3 (0.0-0.8); MONO % 4.8 % (0.0-5.0); NEUTROPHILS # 5.8 K/mm3 (1.8-7.7); NEUTROPHILS % 72.3 % (36.0-66.0); PLATELET COUNT, AUTOMATED 239 k/mm3 (150-450); RED CELL DISTRIBUTION WIDTH 12.7 % (11.5-14.5)
[2016-12-05 22:17] LABS: ANION GAP 15 MEQ/L (8-16); BLOOD UREA NITROGEN 10 MG/DL (7-18); CALCIUM LEVEL 8.7 MG/DL (8.5-10.1); CARBON DIOXIDE LEVEL 16 MEQ/L (21-32); CHLORIDE LEVEL 104 MEQ/L (98-107); CREATININE FOR GFR 0.81 MG/DL (0.55-1.02); GLOMERULAR FILTRATION RATE > 60.0 (>60); GLUCOSE, FASTING 88 MG/DL (70-105); POTASSIUM SERUM 4.1 MEQ/L (3.5-5.1); SODIUM LEVEL 135 MEQ/L (136-145)
--- NOTE | 2016-12-05 23:40 | REPUSA ---
CT of the head Clinical history: seizure. Comparison: 07/23/2016. Technique: Multiple axial CT images were obtained through the head without administration of contrast . Findings: The ventricles and sulci are symmetric bilaterally. There is no evidence of acute hemorrhag e or infarct. There is no midline shift, mass effect, or extra-axial fluid collection. The osseous st ructures are unremarkable. The visualized paranasal sinuses and mastoid air cells are clear. Impression: Negative study.
[2016-12-06] MEDS ORDERED: NS 1,000 ML IV SCH (01:00)
[2016-12-06] MEDS ORDERED: PHENYTOIN ER 100 MG CAP PO ONE (01:00)
[2016-12-06] MEDS ORDERED: ACETAMINOPHEN TAB 650MG DOSE (2X325MG) PO PRN (01:30)
[2016-12-06] MEDS ORDERED: ONDANSETRON 4MG/2ML VIAL (J2405) IV PRN (01:30)
[2016-12-06 01:38] LABS: CONTROL LINE HCG INT CTR LINE PRESENT
[2016-12-06 02:03] LABS: HCG, SERUM QUANTITATIVE 73 MIU/ML
[2016-12-06 02:07] LABS: METHADONE URINE NEGATIVE (NEGATIVE)
[2016-12-06 02:48] VITALS: BP 107/65
[2016-12-06 06:00] LABS: MEAN CORPUSCULAR HEMOGLOBIN 32.9 pg (27.0-33.0); MEAN CORPUSCULAR VOLUME 96.8 fl (80.0-96.0); RED CELL DISTRIBUTION WIDTH 12.6 % (11.5-14.5); WHITE BLOOD COUNT 8.6 K/mm3 (4.0-10.0)
[2016-12-06 06:25] LABS: ANION GAP 6 MEQ/L (8-16); BLOOD UREA NITROGEN 8 MG/DL (7-18); CALCIUM LEVEL 8.1 MG/DL (8.5-10.1); CARBON DIOXIDE LEVEL 23 MEQ/L (21-32); CHLORIDE LEVEL 109 MEQ/L (98-107); CREATININE FOR GFR 0.57 MG/DL (0.55-1.02); GLOMERULAR FILTRATION RATE > 60.0 (>60); GLUCOSE, FASTING 88 MG/DL (70-105); MAGNESIUM LEVEL 2.3 MG/DL (1.8-2.4); POTASSIUM SERUM 3.7 MEQ/L (3.5-5.1); SODIUM LEVEL 138 MEQ/L (136-145); T UPTAKE 36 % (30-39); THYROXINE (T4) 5.8 UG/DL (4.5-12.0)
--- NOTE | 2016-12-06 06:32 | REP ---
Clinical: Seizures . Comparison: None . Findings: The mediastinum and cardiac silhouette are stable and within normal limits for portable technique. The lung araiza are clear without acute consolidation, effusion, or pneumothorax. Skeletal structures are intact. Impression: No acute cardiopulmonary process appreciated. Signed by Martell Cooper MD 12/06/2016 01:16 A
--- NOTE | 2016-12-06 06:32 | HPE ---
DATE OF ADMISSION: 12/05/2016 PRIMARY CARE PROVIDER: CHEYENNE Victoria. NEUROLOGIST: Ankush Mcdaniel MD. CHIEF COMPLAINT: Seizure. HISTORY OF PRESENT ILLNESS: This is a 26-year-old female patient with underlying medical history of bipolar disorder, depression, history of substance abuse, has not been using any drug for the past 9 months, diagnosed with seizure disorder April 2016, has been on average having a seizure every month, last seizure was about 1-2 months ago. Around 8:30 p.m. last night, patient had an episode of tonic-clonic seizure witnessed by lasting about 30 seconds, fell to the ground hitting her head. No urinary or fecal incontinence. No tongue biting. Subsequently, brought to the emergency room. In the emergency room, around 9:30, patient also had another episode of seizure, given Ativan, as well as Keppra. As per patient and patient's family, she has not been taking her recommended Keppra for the past 1.5 weeks because she lost the prescription at her mother's place, but prior to that she has only been taking at half the dose of Keppra. She was recommended to take 1000 mg by mouth twice a day, but has only been taking 500 once a day to 500 twice a day. She reported that Keppra is making her very sleepy. Subsequently, cannot take care of the children and has been cutting down her dose because of that. Denies any alcohol drinking recently, any recent stress. Denies any chest pain, pressure or discomfort. No neurological complaints. Denies any vision change, hearing change. Denies any auditory or visual hallucinations, shortness of breath, palpitations, chest pain. ALLERGIES: To PENICILLIN. PAST MEDICAL HISTORY: 1. Bipolar disorder. 2. Seizure disorder. 3. Major depression. 4. Substance abuse. PAST SURGICAL HISTORY: None. SOCIAL HISTORY: Smokes about half a pack of cigarettes per day for the past 12 years. Lives with her boyfriend and her daughter. No recent drug use, but does have history of drug use. FAMILY HISTORY: Denies any history of seizure disorder or early stroke. REVIEW OF SYSTEMS: Two episodes of seizure have been reported. Denies any chest pain, pressure or discomfort. All other review of systems is negative. HOME MEDICATION: - Keppra 1000 mg by mouth twice a day PHYSICAL EXAMINATION: VITAL SIGNS: Temperature 97.8, pulse 102, respirations 18, blood pressure 112/73, pulse oximetry 99% on room air. GENERAL: Patient alert and oriented times three in no acute distress. HEENT: Normocephalic, atraumatic. Tongue with tongue ring which makes the patient's speech a little bit slurred, but no bite iglesias. PULMONARY: Bilaterally clear to auscultation. CARDIAC: Tachycardia, regular S1, S2. ABDOMEN: Soft, nontender. Positive bowel sounds. EXTREMITIES: No edema bilateral lower extremities. No clubbing, cyanosis or edema. NEUROLOGIC: Cranial nerves II-XII grossly intact. No focal deficits. Able to move all four extremities. LABORATORY: WBC 8.0, hemoglobin and hematocrit 12.4/35.8, platelets 239. Chemistry: Sodium 135, potassium 4.1, chloride 104, bicarbonate 16, BUN 10, creatinine 0.8. CT of the head within normal limits. ASSESSMENT AND PLAN: This is a 26-year-old female patient with underlying history of seizure, major depression, bipolar, history of substance abuse, presented with recurrent seizure. 1. Breakthrough seizure. Likely secondary to poor medication adherence. Keppra level has been ordered. Case was discussed with Dr. Diaz. Neurology has been consulted. Neurologic checks, seizure precautions. Given that patient has not been compliant to medication due to side effects, considered to change antiepileptic medication to dilantin, but patient's HCG +. D/w Dr Diaz will keep the patient on Keppra 500mg PO BID Will continue to monitor. Seizure precautions, fall precautions. Neurology consulted. Urine toxicology ordered. 2. History of bipolar and depression. Patient not suicidal. Outpatient followup. 3. History of substance abuse. Followup urine toxicology. Supportive care. Patient follows program as outpatient. Thiamine, folate, multivitamin. 4. Deep venous thrombosis (DVT) prophylaxis. Lovenox subcutaneously. 5. Poor compliance. Counseling provided. 6. Smoking. Counseling provided. Patient has been smoking less these days as per patient. DISPOSITION: Will monitor patient overnight. Neurology consulted. Medication adjusted. ADDENDUM: HCG appreciated to be positive. Patient is . Case discussed with Dr. Diaz. Will not give Dilantin. Subsequently, Dilantin has not been given and discontinued. Will keep the patient on 500 mg by mouth twice a day of Keppra. Early ambulation and sequential compression device for deep venous thrombosis ( DVT) prophylaxis. Intravenous (IV) fluids, thiamine, multivitamin and folic acid as ordered. Addendum Dictated: Radha Trotter MD, 12/06/16 0225 Addendum Transcribed: reema 12/06/2016 0314 TONYA
[2016-12-06] MEDS ORDERED: PRENTAB40 PO (06:54)
[2016-12-06] MEDS ORDERED: KEPP250T5 PO (06:54)
[2016-12-06 08:00] VITALS: BP 136/76
[2016-12-06] MEDS ORDERED: THIAMINE 100 MG TAB PO SCH (09:00)
[2016-12-06] MEDS ORDERED: FOLIC ACID 1 MG TAB PO SCH (09:00)
[2016-12-06] MEDS ORDERED: levETIRAcetam 250MG TABLET (KEPPRA) PO SCH (09:00)
[2016-12-06] MEDS ORDERED: SENOKOT S TAB PO SCH (09:00)
[2016-12-06] MEDS ORDERED: ENOXAPARIN 40 MG/0.4 ML SYRINGE (J1650) SC SCH (09:00)
[2016-12-06] MEDS ORDERED: MULTIVITAMINS/MINERALS THERAP 1 TAB PO SCH (09:00)
--- NOTE | 2016-12-06 16:55 | ECGEPIP ---
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
[2016-12-06] MEDS ORDERED: PHENYTOIN ER 100 MG CAP PO SCH (21:00)
--- NOTE | 2016-12-07 10:54 | DSES ---
DATE OF ADMISSION: 12/05/2016 DATE OF DISCHARGE: 12/06/2016 PRIMARY CARE PHYSICIAN: Betty Carbajal NEUROLOGIST: Dr. Mcdaniel PRIMARY DISCHARGE DIAGNOSES: 1. Seizure secondary to medical noncompliance. 2. Positive hCG. 3. History of bipolar disorder. 4. Major depression., 5. Substance abuse. DISCHARGE MEDICATIONS: - Keppra 500 mg by mouth twice a day - vitamin 1 tablet daily HOSPITAL COURSE: This is a 26-year-old female with history of bipolar disorder, seizure disorder, major depression and substance abuse, followed by [facility] Neurology, had been on 1 gram of Keppra twice a day, which the patient discontinued due to increase in lethargy and unable to care for her 3-year-old daughter. Patient was then given 500 mg twice a day of Keppra prescription and patient had misplaced this and had not been on antiepileptic medication. At 8:30 p.m. yesterday, patient had a tonic-clonic seizure witnessed by the lasting for about 30 seconds. In the emergency room (ER), she was given Ativan and intravenous Keppra, and was admitted overnight. CT of the head was negative for acute intracranial pathology. Chest x-ray was also negative. CBC, metabolic panel were within normal limits. Urine toxicology screen was negative. Keppra level was pending. HCG was positive. Per Dr. Trotter, his conversation with Dr. Diaz, dilantin would not be an appropriate choice in light of the positive hCG, and patient was kept on Keppra at 500 twice a day with no issues overnight. She is discharged in stable condition to followup with Dr. Diaz as outpatient. LABORATORIES ON DISCHARGE: White count 8.6, hemoglobin 11, hematocrit 34, platelet count 229. Sodium 138, potassium 3.7, chloride 109, bicarbonate 23, BUN 8, creatinine 0.57, glucose of 88, magnesium 2.3, TSH 18, hCG positive, qualitative/quantitative 73. Urine toxicology is negative. IMAGING STUDIES: 12/05/2016 CT of the head: There is negative study. Chest x-ray: No acute cardiopulmonary disease on 12/05/2016. TIME SPENT ON DISCHARGE: 30 minutes.
== END 2016-12-06 10:30 | disposition home or self-care (01) ==
LOC: M ED 20:45 → EDBD 20:45 → M ED INP 20:46 → M PCU 12-06 02:33
PROVIDERS: ADMIT Hospitalist; ATTEND General Practice
DX: R56.9 Unspecified convulsions (principal); Z91.14 Patient's other noncompliance with medication regimen; Z33.1 Pregnant state, incidental; F32.9 Major depressive disorder, single episode, unspecified; F17.210 Nicotine dependence, cigarettes, uncomplicated
CPT/HCPCS: 36415; 70450; 71010; 80048; 80180; 80307; 83735; 84436; 84443; 84479; 84702; 84703; 85025; 85027; 93000; 96361; 96374; 96375; 99285; J1953; J2060

== ENCOUNTER 2016-12-13 11:30 | Outpatient (RCR) | payer MEDICAID ==
[~2016-12-13 11:30] MED LIST changes: +KEPP10002 PO; +KEPP250T5 PO; +PRENTAB40 PO
== END 2016-12-23 ==
LOC: M OUTALCOH 11:30
PROVIDERS: ATTEND Psychiatry & Neurology Psychiatry
DX: Z13.9 Encounter for screening, unspecified (principal); F10.20 Alcohol dependence, uncomplicated; Z72.0 Tobacco use

== ENCOUNTER → 2016-12-28 | Outpatient (CLI) | payer OTHER ==
[~2016-12-28] MED LIST changes: +MACR100C43 PO
[2016-12-28 10:46] LABS: BASO % 0.3 % (0.0-1.0); EOS # 0.1 K/mm3 (0.0-0.50); EOS % 1.4 % (0.0-3.0); LARGE UNSTAINED CELL # 0.1 K/mm3 (0.0-0.4); LARGE UNSTAINED CELL % 1.9 % (0.0-4.0); LYMPH # 1.8 K/mm3 (1.5-6.5); MEAN CORPUSCULAR HEMOGLOBIN 33.3 pg (27.0-33.0); MEAN CORPUSCULAR HGB CONC 34.1 g/dl (32.0-36.5); MEAN CORPUSCULAR VOLUME 97.8 fl (80.0-96.0); MONO # 0.3 K/mm3 (0.0-0.8); MONO % 4.6 % (0.0-5.0); NEUTROPHILS # 4.2 K/mm3 (1.8-7.7); NEUTROPHILS % 65.8 % (36.0-66.0); PLATELET COUNT, AUTOMATED 232 k/mm3 (150-450); RED CELL DISTRIBUTION WIDTH 12.3 % (11.5-14.5); WHITE BLOOD COUNT 6.3 K/mm3 (4.0-10.0)
[2016-12-30 10:56] LABS: HBsAg Prenatal NEGATIVE (NEGATIVE)
== END ==
LOC: M LAB 10:11
PROVIDERS: ATTEND Specialist
DX: Z34.81 Encounter for supervision of other normal pregnancy, first trimester (principal)

== ENCOUNTER → 2016-12-31 | Outpatient (REF) | payer OTHER | LOC: M LAB REF 17:44 | PROVIDERS: ATTEND Specialist | DX: Z34.81 Encounter for supervision of other normal pregnancy, first trimester (principal) ==

== ENCOUNTER 2017-03-09 10:40 | Emergency (ER) | payer OTHER ==
[~2017-03-09] VITALS: Ht 152.4 cm; Wt 54.5 kg
[~2017-03-09 10:40] MED LIST changes: -MACR100C43 PO
[2017-03-09 11:17] LABS: MEAN CORPUSCULAR HEMOGLOBIN 32.6 pg (27.0-33.0); MEAN CORPUSCULAR HGB CONC 33.6 g/dl (32.0-36.5); RED CELL DISTRIBUTION WIDTH 12.5 % (11.5-14.5); WHITE BLOOD COUNT 6.6 10^3/uL (4.0-10.0)
[2017-03-09] MEDS ORDERED: NS 1,000 ML IV ONE (11:30)
[2017-03-09 11:52] LABS: ANION GAP 10 MEQ/L (8-16); BLOOD UREA NITROGEN 5 MG/DL (7-18); CALCIUM LEVEL 8.1 MG/DL (8.5-10.1); CARBON DIOXIDE LEVEL 23 MEQ/L (21-32); CHLORIDE LEVEL 104 MEQ/L (98-107); CREATININE FOR GFR 0.46 MG/DL (0.55-1.02); GLOMERULAR FILTRATION RATE > 60.0 (>60); GLUCOSE, FASTING 73 MG/DL (70-105); HCG, SERUM QUANTITATIVE 16473 MIU/ML; POTASSIUM SERUM 3.7 MEQ/L (3.5-5.1); SODIUM LEVEL 137 MEQ/L (136-145)
--- NOTE | 2017-03-09 12:38 | REP ---
Second trimester obstetric sonography: History: Vaginal bleeding. Findings: Scanning demonstrates a viable single intrauterine gestation in a cephalic lie. motion is observed and heart rate is recorded at 139 beats per minute. An anterior grade zero placenta is seen without evidence of previa or abruption. Amniotic fluid is subjectively normal. Closed cervical length is 3.4 cm, measured transabdominally. No extrauterine abnormalities observed. No anomaly is seen. cerebellum and posterior fossa, face and profile, and spine are less than optimally seen today due to position. The following anatomic structures are identified today and felt to be unremarkable: cranium, choroid plexus, cavum, lungs, four-chamber heart with left and right ventricular outflow tract views, diaphragm, left-sided stomach, abdominal wall cord insertion, three-vessel umbilical cord, kidneys and bladder, upper and lower extremities. Biometry chart: BPD 4.0 cm 18 weeks 1 day Head circumference 13.5 cm 17 weeks 0 days Abdominal circumference 12.5 cm 18 weeks 1 day Femur length 2.1 cm 16 weeks 3 days Humeral length 2.1 cm 16 weeks 2 days HC/AC ratio normal 1.08 Cephalic index normal 0.87 Estimated weight 186 grams, 0 pounds 6 ounces, 47th percentile for 17 weeks 1 day. Impression: Viable single intrauterine gestation at 17 weeks 1 day by today's composite criteria. WALI by today's sonography August 16, 2017. anatomic survey less than complete regarding cerebellum posterior fossa, face and profile, and spine. No complication is identified. Signed by Ebenezer Araujo MD 03/09/2017 12:30 P
[2017-03-09] MEDS ORDERED: MACR100C43 PO (12:43)
[2017-03-09] MEDS ORDERED: NITROFURANTOIN (MACROBID) 100 MG CAP PO ONE (13:00)
[2017-03-09 13:31] VITALS: BP 97/55
== END 2017-03-09 13:44 | disposition home or self-care (01) ==
LOC: M ED 10:40
DX: O99.89 Other specified diseases and conditions complicating pregnancy, childbirth and the puerperium (principal); N93.9 Abnormal uterine and vaginal bleeding, unspecified; N39.0 Urinary tract infection, site not specified; Z3A.17 17 weeks gestation of pregnancy; O99.342 Other mental disorders complicating pregnancy, second trimester; F41.9 Anxiety disorder, unspecified; F33.9 Major depressive disorder, recurrent, unspecified; R56.9 Unspecified convulsions; Z88.0 Allergy status to penicillin

== ENCOUNTER 2017-04-21 09:03 | Outpatient (CLI) | payer OTHER ==
[~2017-04-21] VITALS: Ht 154.9 cm; Wt 55.9 kg
[~2017-04-21 09:03] MED LIST changes: +BACTRIM 160MG/800MG DS TAB PO SCH; +MACR100C43 PO
[2017-04-21] MEDS ORDERED: KEPP10002 PO (09:18)
[2017-04-21 09:23] VITALS: BP 98/61
--- NOTE | 2017-04-21 09:57 | IPNPDOC ---
Text Note Date of Service The patient was seen on 04/21/17. NOTE Outpatient 27yo WALI 08/16/17. Presents @ 23w2d with complaints of severe colicy L flank pain that radiates into groin. Denies regular UC or bleeding. Fetus active. Writhing in pain. crying FH 135, audible activity No UC Abdomen soft, nontender except L groin tenderness. Probable nephrolitiasis vs pyelonephritis. Reassuring status for gestation IV fluids, UA/C&S/CBC, renal scan VS,Fishbone, I+O VS, Fishbone, I+O Vital Signs Date Time Temp Pulse Resp B/P (MAP) Pulse Ox O2 Delivery O2 Flow Rate FiO2 04/21/17 09:23 99.5 90 16 98/61 (73) Saritha Aquino CNM Apr 21, 2017 09:57
[2017-04-21] MEDS ORDERED: LACTATED RINGER'S 1000 ML IV ONE (10:00)
[2017-04-21] MEDS ORDERED: LR 1,000 ML IV SCH (10:00)
[2017-04-21 10:27] LABS: MEAN CORPUSCULAR HEMOGLOBIN 33.1 pg (27.0-33.0); MEAN CORPUSCULAR VOLUME 97.4 fl (80.0-96.0); PLATELET COUNT, AUTOMATED 261 10^3/uL (150-450); RED CELL DISTRIBUTION WIDTH 12.7 % (11.5-14.5); WHITE BLOOD COUNT 7.5 10^3/uL (4.0-10.0)
[2017-04-21 10:28] VITALS: BP 81/49
--- NOTE | 2017-04-21 11:33 | REP ---
Clinical: Left flank pain Technique: Recio scale evaluation of the kidneys and bladder. Findings: The kidneys are essentially normal in contour size and echogenicity and reniform shape without hydronephrosis, nephrolithiasis, cystic or renal mass lesion. Right kidney measures 11.7 x 5.2 x 5.3 cm . Left kidney measures 11.0 x 4.5 x 6.3 cm . Bladder is normal in appearance and demonstrates bilateral ureteral jets without bladder wall thickening or mass lesion. Intrauterine identified (RTQ=208 bpm) Impression: Normal renal ultrasound. Signed by Martell Cooper MD 04/21/2017 11:24 A
[2017-04-21 11:38] VITALS: BP 150/103
[2017-04-21 11:41] VITALS: BP 78/40
[2017-04-21] MEDS ORDERED: SULF1TAB23 PO (12:21)
--- NOTE | 2017-04-21 12:26 | IPNPDOC ---
Text Note Date of Service The patient was seen on 04/21/17. NOTE Pt improving with rest and IV hydration. CBC 7.5>10.1/29.7<261 UA 1+ protein, trace ketones, 3+ leuk esterase, 24 WBC, 5 RBS, 2+ bacteria Renal sono WNL Reviewed pt status with Dr Jim Discharge home with Bactrim DS BID x 7 days. Keep next appt Enc fluids and strain urine. VS,Fishbone, I+O VS, Fishbone, I+O Laboratory Tests 04/21/17 10:19 Red Blood Count 3.05 L, Mean Corpuscular Volume 97.4 H, Mean Corpuscular Hemoglobin 33.1 H, Mean Corpuscular Hemoglobin Concent 34.0, Red Cell Distribution Width 12.7 Vital Signs Date Time Temp Pulse Resp B/P (MAP) Pulse Ox O2 Delivery O2 Flow Rate FiO2 04/21/17 11:41 84 16 78/40 (53) 04/21/17 09:23 99.5 I&O- Last 24 Hours up to 6 AM 04/22/17 06:00 Output Total 150 ml Balance -150 ml Saritha Aquino CNM Apr 21, 2017 12:26
== END 2017-04-21 12:48 | disposition home or self-care (01) ==
LOC: M LDO 09:03
PROVIDERS: ATTEND Advanced Practice Midwife
DX: O99.89 Other specified diseases and conditions complicating pregnancy, childbirth and the puerperium (principal); Z3A.23 23 weeks gestation of pregnancy; R10.9 Unspecified abdominal pain; O23.42 Unspecified infection of urinary tract in pregnancy, second trimester; Z88.0 Allergy status to penicillin

== ENCOUNTER 2017-04-28 20:32 | Emergency (ER) | payer OTHER ==
[~2017-04-28] VITALS: Ht 152.4 cm; Wt 56.9 kg
[~2017-04-28 20:32] MED LIST changes: -BACTRIM 160MG/800MG DS TAB PO SCH; +SULF1TAB23 PO
[2017-04-28 21:58] LABS: BASO % 0.2 % (0.0-1.0); EOS # 0.1 10^3/uL (0.0-0.50); IMMATURE GRANULOCYTE % 0.6 % (0-0); LYMPH # 2.1 10^3/uL (1.5-6.5); LYMPH % 18.8 % (24.0-44.0); MEAN CORPUSCULAR HEMOGLOBIN 33.5 pg (27.0-33.0); MEAN CORPUSCULAR HGB CONC 34.9 g/dl (32.0-36.5); MEAN CORPUSCULAR VOLUME 96.1 fl (80.0-96.0); MONO # 0.7 10^3/uL (0.0-0.8); MONO % 6.2 % (0.0-5.0); NEUTROPHILS # 8.3 10^3/uL (1.8-7.7); NEUTROPHILS % 73.2 % (36.0-66.0); PLATELET COUNT, AUTOMATED 272 10^3/uL (150-450); RED CELL DISTRIBUTION WIDTH 12.7 % (11.5-14.5); WHITE BLOOD COUNT 11.4 10^3/uL (4.0-10.0)
[2017-04-28] MEDS ORDERED: levETIRAcetam 250MG TABLET (KEPPRA) PO ONE (22:00)
[2017-04-28 22:10] LABS: ALBUMIN 3.8 GM/DL (3.2-5.2); ALBUMIN/GLOBULIN RATIO 1.12 (1.00-1.93); ALKALINE PHOSPHATASE 68 U/L (45-117); ALT/SGPT 21 U/L (12-78); ANION GAP 8 MEQ/L (8-16); AST/SGOT 13 U/L (7-37); BILIRUBIN,DIRECT < 0.1 MG/DL (0.0-0.2); BILIRUBIN,TOTAL 0.2 MG/DL (0.2-1.0); BLOOD UREA NITROGEN 6 MG/DL (7-18); CALCIUM LEVEL 8.2 MG/DL (8.5-10.1); CARBON DIOXIDE LEVEL 25 MEQ/L (21-32); CHLORIDE LEVEL 103 MEQ/L (98-107); CREATININE FOR GFR 0.61 MG/DL (0.55-1.02); GLOMERULAR FILTRATION RATE > 60.0 (>60); GLUCOSE, FASTING 83 MG/DL (70-105); POTASSIUM SERUM 3.2 MEQ/L (3.5-5.1); SODIUM LEVEL 136 MEQ/L (136-145); TOTAL PROTEIN 7.2 GM/DL (6.4-8.2)
[2017-04-28] MEDS ORDERED: MACR100C43 PO (23:26)
[2017-04-28] MEDS ORDERED: NITROFURANTOIN (MACROBID) 100 MG CAP PO ONE (23:30)
[2017-04-28] MEDS ORDERED: POTASSIUM CHLORIDE 10 MEQ SR TABLET PO ONE (23:30)
[2017-04-28 23:41] VITALS: BP 104/66
== END 2017-04-29 00:09 | disposition home or self-care (01) ==
LOC: M ED 20:32
DX: O99.352 Diseases of the nervous system complicating pregnancy, second trimester (principal); G40.909 Epilepsy, unspecified, not intractable, without status epilepticus; O23.42 Unspecified infection of urinary tract in pregnancy, second trimester; O99.282 Endocrine, nutritional and metabolic diseases complicating pregnancy, second trimester; E87.6 Hypokalemia; O99.332 Smoking (tobacco) complicating pregnancy, second trimester; F17.210 Nicotine dependence, cigarettes, uncomplicated; Z3A.24 24 weeks gestation of pregnancy

== ENCOUNTER → 2017-05-02 | Outpatient (CLI) | payer OTHER ==
[~2017-05-02] MED LIST changes: +BACT800T5 PO; +VALT500T PO
--- NOTE | 2017-05-02 19:23 | REP ---
OB ultrasound limited: 05/02/2017. Clinical history: Supervision of , second trimester. spine and lower extremities not well imaged on the anatomy screen. Findings: There is a single intrauterine gestation in vertex position. Cervix is 2.8 cm long but closed. An anterior grade zero placenta without previa or abruption. Visually the amniotic fluid volume is normal. biometry BPD 6.7 cm 26 weeks 6 days HC 23.6 cm 25 weeks 4 days AC 19.8 cm 24 weeks 3 days FL 4.3 cm 24 weeks 1 day HL 4 cm 24 weeks 1 day This gives average ultrasound age 25 weeks with EDC 08/15/2017, by initial ultrasound 24 weeks 6 days. Estimated weight 709 grams or 1 pound 9 ounces which is 35th percentile for dating based on initial ultrasound. This is normal interval growth. Anatomy screen shows transverse and longitudinal views of the spine to be well visualized. Upper and lower extremities are seen and grossly intact as are all the other structures. Impression: 1. Single intrauterine gestation in vertex position with closed 2.8 cm long cervix, visually normal amniotic fluid volume and normal interval growth. Size and dates as stated above. 2. Anterior grade 2 placenta without previa abruption. 3. Heart rate 131 and regular. 4. Anatomy screen should now be considered complete. All structures have been seen either today or previously and grossly unremarkable. Signed by Jalen Quintanilla MD 05/04/2017 10:59 A
== END ==
LOC: M RAD 15:24
PROVIDERS: ATTEND Advanced Practice Midwife
DX: Z36.2 Encounter for other antenatal screening follow-up (principal)

== ENCOUNTER 2017-05-05 13:34 | Outpatient (CLI) | payer OTHER ==
[~2017-05-05] VITALS: Ht 152.4 cm; Wt 58.0 kg
[~2017-05-05 13:34] MED LIST changes: -BACT800T5 PO; -VALT500T PO
[2017-05-05 13:49] VITALS: BP 100/66
[2017-05-05] MEDS ORDERED: BACT800T5 PO (13:54)
[2017-05-05] MEDS ORDERED: VALT500T PO (13:54)
[2017-05-05 15:13] VITALS: BP 103/63
--- NOTE | 2017-05-05 15:32 | REP ---
Obstetric ultrasound for vaginal bleeding and amniotic fluid assessment : There is a single intrauterine gestation in a vertex presentation. heart rate is 128 beats per minute. The placenta is anterior. There is no previa. That the amniotic fluid volume subjectively is normal. The amniotic fluid index measures 14.1 (9.7 - 22.2). Impression: The amniotic fluid assessment is normal. There is no evidence of placenta previa. No abruptio is identified on the images presented. Signed by Alvino Martinez MD 05/05/2017 03:23 P
[2017-05-05 16:10] LABS: MEAN CORPUSCULAR HEMOGLOBIN 33.9 pg (27.0-33.0); MEAN CORPUSCULAR HGB CONC 34.7 g/dl (32.0-36.5); MEAN CORPUSCULAR VOLUME 97.7 fl (80.0-96.0); PLATELET COUNT, AUTOMATED 224 10^3/uL (150-450); RED CELL DISTRIBUTION WIDTH 12.8 % (11.5-14.5); WHITE BLOOD COUNT 7.4 10^3/uL (4.0-10.0)
[2017-05-05 16:22] LABS: INR 0.98
[2017-05-05 17:59] VITALS: BP 106/56
== END 2017-05-05 18:22 | disposition home or self-care (01) ==
LOC: M LDO 13:34
PROVIDERS: ATTEND Advanced Practice Midwife
DX: O26.852 Spotting complicating pregnancy, second trimester (principal); Z3A.25 25 weeks gestation of pregnancy; O99.352 Diseases of the nervous system complicating pregnancy, second trimester; G40.919 Epilepsy, unspecified, intractable, without status epilepticus; O99.342 Other mental disorders complicating pregnancy, second trimester; F31.9 Bipolar disorder, unspecified; O99.332 Smoking (tobacco) complicating pregnancy, second trimester; F17.210 Nicotine dependence, cigarettes, uncomplicated; Z88.0 Allergy status to penicillin; O98.312 Other infections with a predominantly sexual mode of transmission complicating pregnancy, second trimester; A60.00 Herpesviral infection of urogenital system, unspecified

== ENCOUNTER → 2017-05-05 | Outpatient (REF) | payer OTHER | LOC: M LAB REF 18:03 | PROVIDERS: ATTEND Advanced Practice Midwife | DX: Z34.82 Encounter for supervision of other normal pregnancy, second trimester (principal) ==

== ENCOUNTER → 2017-05-21 | Outpatient (REF) | payer OTHER ==
[~2017-05-21] MED LIST changes: +BACT800T5 PO; +VALT500T PO
== END ==
LOC: M LAB REF 17:06
PROVIDERS: ATTEND Advanced Practice Midwife
DX: Z34.82 Encounter for supervision of other normal pregnancy, second trimester (principal)

== ENCOUNTER → 2017-05-29 | Outpatient (CLI) | payer OTHER ==
[2017-05-29 14:46] LABS: HEMATOCRIT 29.4 % (36.0-47.0); MEAN CORPUSCULAR HEMOGLOBIN 33.1 pg (27.0-33.0); MEAN CORPUSCULAR VOLUME 97.4 fl (80.0-96.0); PLATELET COUNT, AUTOMATED 272 10^3/uL (150-450); RED BLOOD COUNT 3.02 10^6/uL (4.00-5.40); RED CELL DISTRIBUTION WIDTH 12.7 % (11.5-14.5); WHITE BLOOD COUNT 8.7 10^3/uL (4.0-10.0)
[2017-05-29 15:06] LABS: GLUCOSE CHALLENGE TEST 1 HOUR 109 MG/DL (LESS THAN 140)
== END ==
LOC: M LAB 12:50
DX: Z36.89 Encounter for other specified antenatal screening (principal); Z3A.00 Weeks of gestation of pregnancy not specified
CPT/HCPCS: 82950

== ENCOUNTER 2017-06-15 13:59 | Outpatient (CLI) | payer OTHER ==
[2017-06-15 15:42] LABS: APPEARANCE, URINE CLEAR (CLEAR); BACTERIA, URINE AUTO 1+ (NEGATIVE); BILIRUBIN, URINE AUTO NEGATIVE (NEGATIVE); BLOOD, URINE BLOOD NEGATIVE (NEGATIVE); COLOR, URINE YELLOW (YELLOW); GLUCOSE, URINE (UA) AUTO NEGATIVE (NEGATIVE); KETONE, URINE AUTO NEGATIVE (NEGATIVE); LEUKOCYTE ESTERASE, URINE AUTO TRACE (NEGATIVE); NITRITE, URINE AUTO NEGATIVE (NEGATIVE); PROTEIN, URINE AUTO NEGATIVE (NEGATIVE); RBC, URINE AUTO 0 /HPF (0-3); SPECIFIC GRAVITY URINE AUTO 1.021 (1.002-1.035); SQUAMOUS EPITHELIAL CELL UR AU 2 /HPF (0-6); UROBILINOGEN, URINE AUTO 0.2 mg/dL (0.0-2.0); WBC, URINE AUTO 0 /HPF (0-3)
== END 2017-06-15 17:46 | disposition home or self-care (01) ==
LOC: M LDO 13:59
DX: O26.893 Other specified pregnancy related conditions, third trimester (principal); R10.2 Pelvic and perineal pain; M54.5 Low back pain; Z86.69 Personal history of other diseases of the nervous system and sense organs; O99.343 Other mental disorders complicating pregnancy, third trimester; F31.9 Bipolar disorder, unspecified; Z72.0 Tobacco use; Z79.899 Other long term (current) drug therapy; Z88.0 Allergy status to penicillin; Z3A.31 31 weeks gestation of pregnancy
CPT/HCPCS: 76815

== ENCOUNTER 2017-07-04 17:14 | Inpatient (IN) | payer OTHER ==
[2017-07-04 18:53] LABS: APPEARANCE, URINE CLOUDY (CLEAR); BACTERIA, URINE AUTO 2+ (NEGATIVE); BILIRUBIN, URINE AUTO NEGATIVE (NEGATIVE); BLOOD, URINE BLOOD NEGATIVE (NEGATIVE); COLOR, URINE YELLOW (YELLOW); GLUCOSE, URINE (UA) AUTO NEGATIVE (NEGATIVE); KETONE, URINE AUTO TRACE mg/dL (NEGATIVE); LEUKOCYTE ESTERASE, URINE AUTO 3+ (NEGATIVE); MUCUS, URINE SMALL (NEGATIVE); NITRITE, URINE AUTO NEGATIVE (NEGATIVE); PROTEIN, URINE AUTO 1+ mg/dL (NEGATIVE); RBC, URINE AUTO 2 /HPF (0-3); SPECIFIC GRAVITY URINE AUTO 1.029 (1.002-1.035); SQUAMOUS EPITHELIAL CELL UR AU 12 /HPF (0-6); WBC, URINE AUTO 11 /HPF (0-3)
[2017-07-04] MEDS: LR 1,000 ML IV (20:15)
[2017-07-04 20:17] LABS: AMPHETAMINES URINE REFLEX NEGATIVE (NEGATIVE); BARBITURATES URINE REFLEX NEGATIVE (NEGATIVE); BENZODIAZEPINES URINE REFLEX NEGATIVE (NEGATIVE); CANNABINOIDS URINE REFLEX NEGATIVE (NEGATIVE); COCAINE METABOLITE URINE REFLE NEGATIVE (NEGATIVE); METHADONE URINE REFLEX NEGATIVE (NEGATIVE); OPIATES URINE REFLEX NEGATIVE (NEGATIVE); PHENCYCLIDINE URINE REFLEX NEGATIVE (NEGATIVE)
[2017-07-04] MEDS: VANCOMYCIN HCL 1,000 MG, VIAL MATE ADAPTER 1 EACH in D5W 250 ML IV (20:41)
[2017-07-04] MEDS: BETAMETHASONE SOLUSPAN 6MG/ML INJ 5ML (J0702) IM (20:44)
[2017-07-04 23:05] LABS: CHLAMYDIA DNA AMPLIFICATION NEGATIVE (NEGATIVE); GC DNA AMPLIFICATION NEGATIVE (NEGATIVE)
[2017-07-05] MEDS: FOSFOMYCIN TROMETHAMINE 3 GM POWDER PACKET (MONUROL) PO (08:54)
== END 2017-07-05 09:00 | disposition home or self-care (01) | DRG 563 ==
LOC: M LDO 17:14 → M LDI 19:33
DX: O60.03 Preterm labor without delivery, third trimester (principal); O23.13 Infections of bladder in pregnancy, third trimester; O99.353 Diseases of the nervous system complicating pregnancy, third trimester; G40.909 Epilepsy, unspecified, not intractable, without status epilepticus; Z3A.35 35 weeks gestation of pregnancy; Z79.899 Other long term (current) drug therapy; Z72.0 Tobacco use

== ENCOUNTER → 2017-07-05 | Outpatient (CLI) | payer OTHER ==
[2017-07-05] MEDS: BETAMETHASONE SOLUSPAN 6MG/ML INJ 5ML (J0702) IM (21:18)
== END ==
LOC: M LDO 21:05
DX: Z34.83 Encounter for supervision of other normal pregnancy, third trimester (principal); Z3A.34 34 weeks gestation of pregnancy
CPT/HCPCS: J0702

== ENCOUNTER → 2017-07-21 | Outpatient (REF) | payer OTHER | LOC: M LAB REF 17:34 | DX: Z34.83 Encounter for supervision of other normal pregnancy, third trimester (principal) ==

== ENCOUNTER 2017-08-06 15:39 | Inpatient (IN) | payer OTHER ==
[2017-08-06] MEDS ORDERED: LACTATED RINGER'S 1000 ML IV (16:08)
[2017-08-06] MEDS ORDERED: LR 1,000 ML IV (16:08)
[2017-08-06 17:12] LABS: HEMATOCRIT 33.7 % (36.0-47.0); HEMOGLOBIN 11.3 g/dl (12.0-16.0); MEAN CORPUSCULAR HEMOGLOBIN 31.6 pg (27.0-33.0); MEAN CORPUSCULAR HGB CONC 33.5 g/dl (32.0-36.5); MEAN CORPUSCULAR VOLUME 94.1 fl (80.0-96.0); PLATELET COUNT, AUTOMATED 242 10^3/uL (150-450); RED BLOOD COUNT 3.58 10^6/uL (4.00-5.40); RED CELL DISTRIBUTION WIDTH 13.6 % (11.5-14.5); WHITE BLOOD COUNT 11.5 10^3/uL (4.0-10.0)
[2017-08-06 17:37] LABS: AMPHETAMINES URINE REFLEX NEGATIVE (NEGATIVE); BARBITURATES URINE REFLEX NEGATIVE (NEGATIVE); BENZODIAZEPINES URINE REFLEX NEGATIVE (NEGATIVE); CANNABINOIDS URINE REFLEX NEGATIVE (NEGATIVE); COCAINE METABOLITE URINE REFLE NEGATIVE (NEGATIVE); METHADONE URINE REFLEX NEGATIVE (NEGATIVE); OPIATES URINE REFLEX NEGATIVE (NEGATIVE); PHENCYCLIDINE URINE REFLEX NEGATIVE (NEGATIVE)
[2017-08-06] MEDS ORDERED: OXYTOCIN 30 UNITS IN 0.9% NaCl 500ML IV BAG (J2590) As Ordered (22:38)
[2017-08-06] MEDS ORDERED: DIBUCAINE 1% OINTMENT 30GM TOP (23:00)
[2017-08-06] MEDS ORDERED: METHYLERGONOVINE MALEATE 0.2 MG TAB PO (23:00)
[2017-08-06] MEDS: IBUPROFEN 800 MG TAB PO (23:10)
[2017-08-07] MEDS: OXYTOCIN DRIP 30 UNITS in APPROPRIATE DILUENT 1 EA IV (02:48)
[2017-08-07] MEDS: RHOGAM 300 MCG (1500 IU) INJ (J2790) IM (03:46)
[2017-08-07] MEDS: MEASLES,MUMPS,RUBELLA VACCINE INJ (MMR-II) (90707) SC (03:46)
[2017-08-07] MEDS: ACETAMINOPHEN 500 MG TAB PO (03:56)
[2017-08-07] MEDS: IBUPROFEN 800 MG TAB PO (07:43)
[2017-08-07] MEDS: PRENATAL VITAMINS CHEWABLE TABLET PO (07:43)
[2017-08-07] MEDS: DOCUSATE SODIUM 100 MG CAP PO (19:48)
[2017-08-08] MEDS: ACETAMINOPHEN 500 MG TAB PO (06:06)
[2017-08-08] MEDS: PRENATAL VITAMINS CHEWABLE TABLET PO (07:29)
[2017-08-08] MEDS: IBUPROFEN 800 MG TAB PO (07:29)
== END 2017-08-08 12:05 | disposition home or self-care (01) | DRG 560 ==
LOC: M LDO 15:39 → M OBS 08-07 02:37 → M LDI 16:04
PROVIDERS: Specialist
PROC: 10E0XZZ Delivery of Products of Conception, External Approach (ICD-10-PCS; principal; 2017-08-06)
DX: O99.334 Smoking (tobacco) complicating childbirth (principal); F17.200 Nicotine dependence, unspecified, uncomplicated; Z37.0 Single live birth; Z3A.38 38 weeks gestation of pregnancy; Z88.0 Allergy status to penicillin; O77.0 Labor and delivery complicated by meconium in amniotic fluid

== ENCOUNTER 2017-08-28 21:18 | Emergency (ER) | payer OTHER ==
[2017-08-28 22:18] LABS: BASO % 0.4 % (0.0-1.0); EOS # 0.1 10^3/uL (0.0-0.50); EOS % 1.7 % (0.0-3.0); HEMATOCRIT 30.6 % (36.0-47.0); HEMOGLOBIN 10.5 g/dl (12.0-15.5); IMMATURE GRANULOCYTE % 0.3 % (0-3.0); LYMPH # 2.4 10^3/uL (1.5-6.5); LYMPH % 33.3 % (24.0-44.0); MEAN CORPUSCULAR HEMOGLOBIN 32.1 pg (27.0-33.0); MEAN CORPUSCULAR HGB CONC 34.3 g/dl (32.0-36.5); MEAN CORPUSCULAR VOLUME 93.6 fl (80.0-96.0); MONO # 0.5 10^3/uL (0.0-0.8); MONO % 6.6 % (0.0-5.0); NEUTROPHILS # 4.2 10^3/uL (1.8-7.7); NEUTROPHILS % 57.7 % (36.0-66.0); PLATELET COUNT, AUTOMATED 339 10^3/uL (150-450); RED BLOOD COUNT 3.27 10^6/uL (4.00-5.40); RED CELL DISTRIBUTION WIDTH 13.2 % (11.5-14.5); WHITE BLOOD COUNT 7.3 10^3/uL (4.0-10.0)
[2017-08-28 22:30] LABS: BEDSIDE GLUCOSE 91 MG/DL (70-105)
[2017-08-28] MEDS: NS 1,000 ML IV (22:30)
[2017-08-28 22:31] LABS: CONTROL LINE HCG INT CTR LINE PRESENT; HCG, SERUM QUALITATIVE NEGATIVE (NEGATIVE)
[2017-08-28 22:39] LABS: ALBUMIN 3.8 GM/DL (3.2-5.2); ALBUMIN/GLOBULIN RATIO 1.06 (1.00-1.93); ALKALINE PHOSPHATASE 65 U/L (45-117); ALT/SGPT 26 U/L (12-78); ANION GAP 7 MEQ/L (8-16); AST/SGOT 21 U/L (7-37); BILIRUBIN,DIRECT < 0.1 MG/DL (0.0-0.2); BILIRUBIN,TOTAL 0.2 MG/DL (0.2-1.0); BLOOD UREA NITROGEN 11 MG/DL (7-18); CALCIUM LEVEL 8.7 MG/DL (8.5-10.1); CARBON DIOXIDE LEVEL 26 MEQ/L (21-32); CHLORIDE LEVEL 107 MEQ/L (98-107); GLOMERULAR FILTRATION RATE > 60.0 (>60); GLUCOSE, FASTING 79 MG/DL (70-100); MAGNESIUM LEVEL 2.1 MG/DL (1.8-2.4); PHOSPHORUS LEVEL 3.3 MG/DL (2.5-4.9); SODIUM LEVEL 140 MEQ/L (136-145); TOTAL PROTEIN 7.4 GM/DL (6.4-8.2)
[2017-08-29] MEDS: POTASSIUM CHLORIDE 10 MEQ SR TABLET PO (00:38)
[2017-08-29 00:43] LABS: KETONE, URINE AUTO RFX NEGATIVE (NEGATIVE); LEUKOCYTE ESTERASE UR AUTO RFX 1+ (NEGATIVE); NITRITE, URINE AUTO RFX NEGATIVE (NEGATIVE); RBC, URINE AUTO RFX 2 /HPF (0-3); SPECIFIC GRAVITY UR AUTO RFX 1.008 (1.002-1.035); SQUAM EPITHELIAL CELL UR AURFX 2 /HPF (0-6); WBC, URINE AUTO RFX 15 /HPF (0-3)
[2017-08-29 01:09] LABS: AMPHETAMINES LEVEL URINE NEGATIVE (NEGATIVE); BARBITURATES URINE NEGATIVE (NEGATIVE); BENZODIAZEPINES URINE NEGATIVE (NEGATIVE); CANNABINOIDS URINE NEGATIVE (NEGATIVE); COCAINE METABOLITE URINE NEGATIVE (NEGATIVE); METHADONE URINE NEGATIVE (NEGATIVE); OPIATES URINE NEGATIVE (NEGATIVE); PHENCYCLIDINE URINE NEGATIVE (NEGATIVE)
[2017-09-01 00:06] LABS: LEVETIRACETAM (KEPPRA) None Detected ug/mL (10.0-40.0)
== END 2017-08-29 03:13 | disposition home or self-care (01) ==
LOC: M ED 21:18
DX: R56.9 Unspecified convulsions (principal); Z79.899 Other long term (current) drug therapy; Z88.0 Allergy status to penicillin; F17.210 Nicotine dependence, cigarettes, uncomplicated
CPT/HCPCS: 71046

== ENCOUNTER 2017-09-25 09:45 | Emergency (ER) | payer OTHER ==
[2017-09-25] MEDS ORDERED: LORazepam 2 MG/ML VIAL (J2060) As Ordered (09:50)
[2017-09-25] MEDS: LORazepam 2 MG/ML VIAL (J2060) IV (09:55)
[2017-09-25] MEDS: levETIRAcetam INJection 1,000 MG in D5W 100 ML IV (10:11)
[2017-09-25] MEDS: NS 1,000 ML IV ×2 (10:11→13:36)
[2017-09-25] MEDS ORDERED: LORazepam 2 MG/ML VIAL (J2060) IV (10:13)
[2017-09-25 10:16] LABS: HEMATOCRIT 34.9 % (36.0-47.0); HEMOGLOBIN 11.4 g/dl (12.0-15.5); MEAN CORPUSCULAR HEMOGLOBIN 32.2 pg (27.0-33.0); MEAN CORPUSCULAR HGB CONC 32.7 g/dl (32.0-36.5); MEAN CORPUSCULAR VOLUME 98.6 fl (80.0-96.0); PLATELET COUNT, AUTOMATED 314 10^3/uL (150-450); RED BLOOD COUNT 3.54 10^6/uL (4.00-5.40); RED CELL DISTRIBUTION WIDTH 14.3 % (11.5-14.5); WHITE BLOOD COUNT 10.3 10^3/uL (4.0-10.0)
[2017-09-25 10:25] LABS: ADD MANUAL DIFFER YES; DIFF SLIDE NUMBER 186; POSITIVE DIFF POS FLAG
[2017-09-25 10:40] LABS: ANION GAP 16 MEQ/L (8-16); BLOOD UREA NITROGEN 9 MG/DL (7-18); CALCIUM LEVEL 8.6 MG/DL (8.5-10.1); CARBON DIOXIDE LEVEL 18 MEQ/L (21-32); CHLORIDE LEVEL 105 MEQ/L (98-107); GLOMERULAR FILTRATION RATE > 60.0 (>60); GLUCOSE, FASTING 146 MG/DL (70-100); POTASSIUM SERUM 3.3 MEQ/L (3.5-5.1); SODIUM LEVEL 139 MEQ/L (136-145)
[2017-09-25 10:42] LABS: EOSINOPHILS 6 % (0-5); LYMPHOCYTES 40 % (16-52); MONOCYTES 6 % (0-8); NEUTROPHILS 48 % (35-75); PLATELET ESTIMATE NORMAL (NORMAL)
[2017-09-25 10:44] LABS: ETHYL ALCOHOL (ETHANOL) < 0.003 % (0.000-0.010)
[2017-09-25 10:47] LABS: LACTIC ACID SEPSIS PROTOCOL 10.6 MMOL/L (0.4-2.0)
[2017-09-25 10:49] LABS: CONTROL LINE HCG INT CTR LINE PRESENT; HCG, SERUM QUALITATIVE NEGATIVE (NEGATIVE)
[2017-09-25 13:03] LABS: CONTROL LINE UCG INT CTR LINE PRESENT; URINE PREG TEST NEGATIVE (NEGATIVE)
[2017-09-25 13:06] LABS: KETONE, URINE AUTO RFX NEGATIVE (NEGATIVE); LEUKOCYTE ESTERASE UR AUTO RFX NEGATIVE (NEGATIVE); MUCUS, URINE RFX SMALL (NEGATIVE); NITRITE, URINE AUTO RFX NEGATIVE (NEGATIVE); RBC, URINE AUTO RFX 0 /HPF (0-3); SPECIFIC GRAVITY UR AUTO RFX 1.006 (1.002-1.035); SQUAM EPITHELIAL CELL UR AURFX 3 /HPF (0-6); WBC, URINE AUTO RFX 1 /HPF (0-3)
[2017-09-25 13:25] LABS: AMPHETAMINES LEVEL URINE NEGATIVE (NEGATIVE); BARBITURATES URINE NEGATIVE (NEGATIVE); BENZODIAZEPINES URINE NEGATIVE (NEGATIVE); CANNABINOIDS URINE NEGATIVE (NEGATIVE); COCAINE METABOLITE URINE NEGATIVE (NEGATIVE); METHADONE URINE NEGATIVE (NEGATIVE); OPIATES URINE NEGATIVE (NEGATIVE); PHENCYCLIDINE URINE NEGATIVE (NEGATIVE)
== END 2017-09-25 15:43 | disposition home or self-care (01) ==
LOC: M ED 09:45
DX: R56.9 Unspecified convulsions (principal); F31.9 Bipolar disorder, unspecified; F19.90 Other psychoactive substance use, unspecified, uncomplicated; F17.200 Nicotine dependence, unspecified, uncomplicated
CPT/HCPCS: J1953

== ENCOUNTER → 2017-10-03 | Outpatient (CLI) | payer OTHER | LOC: M RAD 16:11 | DX: M25.561 Pain in right knee (principal) | CPT/HCPCS: 73564 ==

== ENCOUNTER 2017-12-21 21:35 | Emergency (ER) | payer OTHER ==
[2017-12-21 22:18] LABS: BASO % 0.3 % (0.0-1.0); EOS # 0.2 10^3/uL (0.0-0.50); EOS % 2.4 % (0.0-3.0); HEMATOCRIT 38.8 % (36.0-47.0); IMMATURE GRANULOCYTE % 0.2 % (0-3.0); LYMPH # 2.6 10^3/uL (1.5-6.5); LYMPH % 28.8 % (24.0-44.0); MEAN CORPUSCULAR HEMOGLOBIN 31.9 pg (27.0-33.0); MEAN CORPUSCULAR HGB CONC 33.5 g/dl (32.0-36.5); MEAN CORPUSCULAR VOLUME 95.1 fl (80.0-96.0); MONO # 0.9 10^3/uL (0.0-0.8); MONO % 9.6 % (0.0-5.0); NEUTROPHILS # 5.2 10^3/uL (1.8-7.7); NEUTROPHILS % 58.7 % (36.0-66.0); PLATELET COUNT, AUTOMATED 326 10^3/uL (150-450); RED BLOOD COUNT 4.08 10^6/uL (4.00-5.40); RED CELL DISTRIBUTION WIDTH 12.7 % (11.5-14.5); WHITE BLOOD COUNT 8.9 10^3/uL (4.0-10.0)
[2017-12-21 22:23] LABS: KETONE, URINE AUTO RFX TRACE mg/dL (NEGATIVE); MUCUS, URINE RFX LARGE (NEGATIVE); NITRITE, URINE AUTO RFX NEGATIVE (NEGATIVE); RBC, URINE AUTO RFX 2 /HPF (0-3); SPECIFIC GRAVITY UR AUTO RFX 1.035 (1.002-1.035); SQUAM EPITHELIAL CELL UR AURFX 9 /HPF (0-6); TRANSITIONAL EPITHELIAL AU RFX <1 /HPF
[2017-12-21 22:25] LABS: LEUKOCYTE ESTERASE UR AUTO RFX 1+ (NEGATIVE); WBC, URINE AUTO RFX 12 /HPF (0-3)
[2017-12-21 22:38] LABS: ALBUMIN 4.8 GM/DL (3.2-5.2); ALBUMIN/GLOBULIN RATIO 1.78 (1.00-1.93); ALKALINE PHOSPHATASE 63 U/L (45-117); ALT/SGPT 24 U/L (12-78); ANION GAP 6 MEQ/L (8-16); AST/SGOT 12 U/L (7-37); BILIRUBIN,DIRECT 0.1 MG/DL (0.0-0.2); BILIRUBIN,TOTAL 0.3 MG/DL (0.2-1.0); BLOOD UREA NITROGEN 8 MG/DL (7-18); CALCIUM LEVEL 8.8 MG/DL (8.5-10.1); CARBON DIOXIDE LEVEL 27 MEQ/L (21-32); CHLORIDE LEVEL 106 MEQ/L (98-107); GLOMERULAR FILTRATION RATE > 60.0 (>60); GLUCOSE, FASTING 104 MG/DL (70-100); LIPASE 84 U/L (73-393); POTASSIUM SERUM 4.5 MEQ/L (3.5-5.1); SODIUM LEVEL 139 MEQ/L (136-145); TOTAL PROTEIN 7.5 GM/DL (6.4-8.2)
[2017-12-21] MEDS: IBUPROFEN 800 MG TAB PO (22:44)
[2017-12-21] MEDS: BACTRIM 160MG/800MG DS TAB PO (23:59)
[2017-12-22 00:55] LABS: CHLAMYDIA DNA AMPLIFICATION POSITIVE (NEGATIVE); GC DNA AMPLIFICATION NEGATIVE (NEGATIVE)
== END 2017-12-22 00:03 | disposition home or self-care (01) ==
LOC: M ED 12-22 00:03
DX: N39.0 Urinary tract infection, site not specified (principal); R56.9 Unspecified convulsions; F31.9 Bipolar disorder, unspecified; Z88.0 Allergy status to penicillin; F17.210 Nicotine dependence, cigarettes, uncomplicated
CPT/HCPCS: 83690

== ENCOUNTER 2017-12-29 12:06 | Inpatient (IN) | payer OTHER ==
[2017-12-29] MEDS ORDERED: LORazepam 2 MG/ML VIAL (J2060) As Ordered (12:17)
[2017-12-29] MEDS: NS 1,000 ML IV ×2 (12:19→14:29)
[2017-12-29] MEDS: LORazepam 2 MG/ML VIAL (J2060) IV (12:20)
[2017-12-29 12:28] LABS: BEDSIDE GLUCOSE 155 MG/DL (70-105)
[2017-12-29 12:50] LABS: BASO % 0.4 % (0.0-1.0); EOS # 0.2 10^3/uL (0.0-0.50); EOS % 2.6 % (0.0-3.0); HEMATOCRIT 35.1 % (36.0-47.0); HEMOGLOBIN 11.5 g/dl (12.0-15.5); IMMATURE GRANULOCYTE % 0.2 % (0-3.0); LYMPH # 2.8 10^3/uL (1.5-6.5); LYMPH % 31.2 % (24.0-44.0); MEAN CORPUSCULAR HEMOGLOBIN 31.6 pg (27.0-33.0); MEAN CORPUSCULAR HGB CONC 32.8 g/dl (32.0-36.5); MEAN CORPUSCULAR VOLUME 96.4 fl (80.0-96.0); MONO # 0.7 10^3/uL (0.0-0.8); MONO % 7.4 % (0.0-5.0); NEUTROPHILS # 5.2 10^3/uL (1.8-7.7); NEUTROPHILS % 58.2 % (36.0-66.0); PLATELET COUNT, AUTOMATED 296 10^3/uL (150-450); RED BLOOD COUNT 3.64 10^6/uL (4.00-5.40); RED CELL DISTRIBUTION WIDTH 12.7 % (11.5-14.5); WHITE BLOOD COUNT 8.9 10^3/uL (4.0-10.0)
[2017-12-29 13:04] LABS: CONTROL LINE HCG INT CTR LINE PRESENT; HCG, SERUM QUALITATIVE NEGATIVE (NEGATIVE)
[2017-12-29 13:14] LABS: ALBUMIN 3.5 GM/DL (3.2-5.2); ALBUMIN/GLOBULIN RATIO 1.06 (1.00-1.93); ALKALINE PHOSPHATASE 48 U/L (45-117); ALT/SGPT 31 U/L (12-78); ANION GAP 12 MEQ/L (8-16); AST/SGOT 23 U/L (7-37); BILIRUBIN,DIRECT < 0.1 MG/DL (0.0-0.2); BILIRUBIN,TOTAL < 0.1 MG/DL (0.2-1.0); BLOOD UREA NITROGEN 10 MG/DL (7-18); CALCIUM LEVEL 8.1 MG/DL (8.5-10.1); CARBON DIOXIDE LEVEL 21 MEQ/L (21-32); CHLORIDE LEVEL 107 MEQ/L (98-107); CPK CREATINE PHOSPHOKINASE 91 U/L (26-192); CREATININE FOR GFR 0.75 MG/DL (0.55-1.30); GLOMERULAR FILTRATION RATE > 60.0 (>60); GLUCOSE, FASTING 128 MG/DL (70-100); POTASSIUM SERUM 3.7 MEQ/L (3.5-5.1); SODIUM LEVEL 140 MEQ/L (136-145); TOTAL PROTEIN 6.8 GM/DL (6.4-8.2); TROPONIN I < 0.02 NG/ML (< 0.10)
[2017-12-29 13:20] LABS: CK-MB VALUE MASS < 1.0 NG/ML (<3.6); MB/CK RELATIVE INDEX 1.09 (< OR =4); THYROID STIMULATING HORMONE 0.026 uIU/ML (0.358-3.740)
[2017-12-29] MEDS: levETIRAcetam INJection 1,000 MG in D5W 100 ML IV (14:29)
[2017-12-29 14:33] LABS: ETHYL ALCOHOL (ETHANOL) < 0.003 % (0.000-0.010)
[2017-12-29 14:38] LABS: ACETAMINOPHEN LEVEL < 2.0 UG/ML (10.0-30.0)
[2017-12-29 15:26] LABS: BEDSIDE GLUCOSE 90 MG/DL (70-105)
[2017-12-29] MEDS: NS 500 ML IV (16:09)
[2017-12-29 16:19] LABS: KETONE, URINE AUTO RFX NEGATIVE (NEGATIVE); LEUKOCYTE ESTERASE UR AUTO RFX NEGATIVE (NEGATIVE); NITRITE, URINE AUTO RFX NEGATIVE (NEGATIVE); RBC, URINE AUTO RFX 2 /HPF (0-3); SPECIFIC GRAVITY UR AUTO RFX 1.011 (1.002-1.035); SQUAM EPITHELIAL CELL UR AURFX 0 /HPF (0-6); WBC, URINE AUTO RFX 0 /HPF (0-3)
[2017-12-29 16:29] LABS: AMPHETAMINES LEVEL URINE NEGATIVE (NEGATIVE); BARBITURATES URINE NEGATIVE (NEGATIVE); BENZODIAZEPINES URINE NEGATIVE (NEGATIVE); CANNABINOIDS URINE POSITIVE (NEGATIVE); COCAINE METABOLITE URINE NEGATIVE (NEGATIVE); METHADONE URINE NEGATIVE (NEGATIVE); OPIATES URINE NEGATIVE (NEGATIVE); PHENCYCLIDINE URINE NEGATIVE (NEGATIVE)
[2017-12-29] MEDS ORDERED: LORazepam 2 MG/ML VIAL (J2060) IV (16:45)
[2017-12-29 18:11] LABS: AMMONIA 14 uMOL/L (<32)
[2017-12-29] MEDS ORDERED: PROHANCE 279.3MG/ML 5ML VIAL (A9576) As Ordered (19:48)
[2017-12-29 20:31] LABS: LACTIC ACID SEPSIS PROTOCOL 7.6 MMOL/L (0.4-2.0)
[2017-12-29 20:53] LABS: PROLACTIN 130.3 NG/ML
[2017-12-29] MEDS: MULTIVITAMIN -ADULT INJECTION 10 ML, THIAMINE INJection 100 MG, FOLIC ACID 1 MG in NS 1... IV (21:41)
[2017-12-29] MEDS: ZONISAMIDE 50 MG CAP (ZONEGRAN) PO (21:41)
[2017-12-29] MEDS: HEPARIN SOD (PORCINE) 5000 UNITS/ML VIAL SQ (21:41)
[2017-12-30] MEDS ORDERED: THIAMINE 100 MG TAB PO (09:00)
[2017-12-30] MEDS ORDERED: FOLIC ACID 1 MG TAB PO (09:00)
[2017-12-30] MEDS ORDERED: levETIRAcetam 250MG TABLET (KEPPRA) PO ×2 (21:00)
[2017-12-30] MEDS ORDERED: ZONISAMIDE 100 MG CAP (ZONEGRAN) PO (21:00)
[2018-01-01 14:17] LABS: LEVETIRACETAM (KEPPRA) None Detected ug/mL (10.0-40.0)
== END 2017-12-30 02:55 | disposition left against medical advice (07) | DRG 53 ==
LOC: M PCU 12-30 00:11 → M ED 12:06 → M ED INP 19:50
PROVIDERS: Hospitalist
DX: G40.909 Epilepsy, unspecified, not intractable, without status epilepticus (principal); F31.9 Bipolar disorder, unspecified; Z91.14 Patient's other noncompliance with medication regimen; Z88.0 Allergy status to penicillin; Z79.899 Other long term (current) drug therapy

== ENCOUNTER → 2018-01-22 | Outpatient (REF) | payer OTHER ==
[2018-01-22 18:21] LABS: FREE THYROXINE INDEX 2.4 % (1.3-4.8); T UPTAKE 30 % (30-39)
[2018-01-22 18:44] LABS: ESTIMATED AVERAGE GLUCOSE 111 MG/DL (60-110); HEMOGLOBIN A1c 5.5 %
== END ==
LOC: M LAB REF 17:31
DX: R94.6 Abnormal results of thyroid function studies (principal)
CPT/HCPCS: 84443

== ENCOUNTER 2018-03-19 13:23 | Emergency (ER) | payer OTHER ==
[2018-03-19 15:08] LABS: BASO % 0.5 % (0.0-1.0); EOS # 0.2 10^3/uL (0.0-0.50); EOS % 2.6 % (0.0-3.0); HEMOGLOBIN 13.3 g/dl (12.0-15.5); IMMATURE GRANULOCYTE % 0.2 % (0-3.0); LYMPH # 1.8 10^3/uL (1.5-6.5); LYMPH % 30.8 % (24.0-44.0); MEAN CORPUSCULAR HEMOGLOBIN 31.7 pg (27.0-33.0); MEAN CORPUSCULAR VOLUME 90.5 fl (80.0-96.0); MONO # 0.6 10^3/uL (0.0-0.8); MONO % 10.3 % (0.0-5.0); NEUTROPHILS # 3.2 10^3/uL (1.8-7.7); NEUTROPHILS % 55.6 % (36.0-66.0); PLATELET COUNT, AUTOMATED 274 10^3/uL (150-450); RED CELL DISTRIBUTION WIDTH 13.6 % (11.5-14.5); WHITE BLOOD COUNT 5.8 10^3/uL (4.0-10.0)
[2018-03-19] MEDS: NS 1,000 ML IV (15:09)
[2018-03-19 15:17] LABS: BEDSIDE GLUCOSE 81 MG/DL (70-105)
[2018-03-19 15:36] LABS: AMPHETAMINES LEVEL URINE NEGATIVE (NEGATIVE); BARBITURATES URINE NEGATIVE (NEGATIVE); BENZODIAZEPINES URINE NEGATIVE (NEGATIVE); CANNABINOIDS URINE POSITIVE (NEGATIVE); COCAINE METABOLITE URINE NEGATIVE (NEGATIVE); METHADONE URINE NEGATIVE (NEGATIVE); OPIATES URINE NEGATIVE (NEGATIVE); PHENCYCLIDINE URINE NEGATIVE (NEGATIVE)
[2018-03-19] MEDS: ZONISAMIDE 50 MG CAP (ZONEGRAN) PO (15:37)
[2018-03-19 15:49] LABS: ACETAMINOPHEN LEVEL < 2.0 UG/ML (10.0-30.0); ALBUMIN 4.3 GM/DL (3.2-5.2); ALBUMIN/GLOBULIN RATIO 1.13 (1.00-1.93); ALKALINE PHOSPHATASE 89 U/L (45-117); ALT/SGPT 35 U/L (12-78); ANION GAP 13 MEQ/L (8-16); AST/SGOT 29 U/L (7-37); BILIRUBIN,DIRECT 0.1 MG/DL (0.0-0.2); BILIRUBIN,TOTAL 0.4 MG/DL (0.2-1.0); BLOOD UREA NITROGEN 14 MG/DL (7-18); CALCIUM LEVEL 8.5 MG/DL (8.5-10.1); CARBON DIOXIDE LEVEL 21 MEQ/L (21-32); CHLORIDE LEVEL 103 MEQ/L (98-107); CPK CREATINE PHOSPHOKINASE 195 U/L (26-192); ETHYL ALCOHOL (ETHANOL) < 0.003 % (0.000-0.010); GLOMERULAR FILTRATION RATE > 60.0 (>60); GLUCOSE, FASTING 57 MG/DL (70-100); MB/CK RELATIVE INDEX 0.97 (< OR =4); POTASSIUM SERUM 3.6 MEQ/L (3.5-5.1); SALICYLATE LEVEL 4.8 MG/DL (5.0-30.0); SODIUM LEVEL 137 MEQ/L (136-145); TOTAL PROTEIN 8.1 GM/DL (6.4-8.2); TROPONIN I < 0.02 NG/ML (< 0.10)
== END 2018-03-19 16:19 | disposition home or self-care (01) ==
LOC: M ED 13:23
DX: G40.909 Epilepsy, unspecified, not intractable, without status epilepticus (principal); F19.21 Other psychoactive substance dependence, in remission; Z91.19 Patient's noncompliance with other medical treatment and regimen; F17.210 Nicotine dependence, cigarettes, uncomplicated
CPT/HCPCS: 80320

== ENCOUNTER → 2018-04-01 | Outpatient (REF) | payer OTHER ==
[2018-04-01 19:20] LABS: FREE T4 0.53 NG/DL (0.76-1.46)
== END ==
LOC: M LAB REF 18:37
DX: R94.6 Abnormal results of thyroid function studies (principal)

== ENCOUNTER 2018-05-14 09:26 | Emergency (ER) | payer OTHER ==
[2018-05-14 11:34] LABS: AMPHETAMINES LEVEL URINE NEGATIVE (NEGATIVE); BARBITURATES URINE NEGATIVE (NEGATIVE); BENZODIAZEPINES URINE POSITIVE (NEGATIVE); CANNABINOIDS URINE NEGATIVE (NEGATIVE); COCAINE METABOLITE URINE NEGATIVE (NEGATIVE); METHADONE URINE NEGATIVE (NEGATIVE); OPIATES URINE NEGATIVE (NEGATIVE); PHENCYCLIDINE URINE NEGATIVE (NEGATIVE)
== END 2018-05-14 12:48 | disposition home or self-care (01) ==
LOC: M ED 09:26
DX: G40.909 Epilepsy, unspecified, not intractable, without status epilepticus (principal); F17.200 Nicotine dependence, unspecified, uncomplicated; Z91.19 Patient's noncompliance with other medical treatment and regimen
CPT/HCPCS: 80307

== ENCOUNTER 2018-08-15 20:33 | Emergency (ER) | payer MEDICAID, OTHER, SELFPAY ==
[~2018-08-15] VITALS: Ht 154.9 cm; Wt 55.5 kg
[~2018-08-15 20:33] MED LIST changes: +ACET-716 PO; -ACET30TAB PO; -ACET50TA PO; +MAPA500T17 PO; +MAPA500T2 PO; +MOTR200T44 PO; +SERT-155; -SULF1TAB23 PO; +SULF1TAB93 PO; +ZONI50CA PO; +ZONI50CA3 PO
[2018-08-15 20:35] VITALS: BP 138/65
[2018-08-15] MEDS ORDERED: HALOPERIDOL 5 MG/ML VIAL (J1630) IV ONE (21:45)
[2018-08-15 22:03] LABS: BASO # 0.1 10^3/uL (0.0-0.2); BASO % 0.5 % (0.0-1.0); EOS # 0.2 10^3/uL (0.0-0.50); EOS % 1.5 % (0.0-3.0); HEMATOCRIT 37.6 % (36.0-47.0); HEMOGLOBIN 12.4 g/dl (12.0-15.5); LYMPH # 3.1 10^3/uL (1.5-6.5); LYMPH % 31.3 % (24.0-44.0); MEAN CORPUSCULAR HEMOGLOBIN 31.6 pg (27.0-33.0); MEAN CORPUSCULAR VOLUME 95.9 fl (80.0-96.0); MONO # 0.8 10^3/uL (0.0-0.8); MONO % 7.9 % (0.0-5.0); NEUTROPHILS # 5.7 10^3/uL (1.8-7.7); NEUTROPHILS % 58.7 % (36.0-66.0); PLATELET COUNT, AUTOMATED 277 10^3/uL (150-450); RED BLOOD COUNT 3.92 10^6/uL (4.00-5.40); WHITE BLOOD COUNT 9.7 10^3/uL (4.0-10.0)
[2018-08-15 22:23] LABS: APPEARANCE, URINE HAZY (CLEAR); BACTERIA, URINE AUTO NEGATIVE (NEGATIVE); BILIRUBIN, URINE AUTO NEGATIVE (NEGATIVE); BLOOD, URINE BLOOD NEGATIVE (NEGATIVE); COLOR, URINE YELLOW (YELLOW); GLUCOSE, URINE (UA) AUTO NEGATIVE (NEGATIVE); KETONE, URINE AUTO TRACE mg/dL (NEGATIVE); LEUKOCYTE ESTERASE, URINE AUTO NEGATIVE (NEGATIVE); MUCUS, URINE SMALL (NEGATIVE); NITRITE, URINE AUTO NEGATIVE (NEGATIVE); PROTEIN, URINE AUTO NEGATIVE (NEGATIVE); RBC, URINE AUTO 4 /HPF (0-3); SPECIFIC GRAVITY URINE AUTO 1.024 (1.002-1.035); SQUAMOUS EPITHELIAL CELL UR AU 0 /HPF (0-6); WBC, URINE AUTO 1 /HPF (0-3)
[2018-08-15 22:28] LABS: HCG, SERUM QUALITATIVE NEGATIVE (NEGATIVE)
[2018-08-15 22:36] LABS: ALBUMIN 4.2 GM/DL (3.2-5.2); ALT/SGPT 18 U/L (12-78); AMYLASE 58 U/L (25-115); BILIRUBIN,DIRECT < 0.1 MG/DL (0.0-0.2); BILIRUBIN,TOTAL 0.1 MG/DL (0.2-1.0); BLOOD UREA NITROGEN 7 MG/DL (7-18); CALCIUM LEVEL 8.6 MG/DL (8.5-10.1); CARBON DIOXIDE LEVEL 28 MEQ/L (21-32); CHLORIDE LEVEL 109 MEQ/L (98-107); CREATININE FOR GFR 0.73 MG/DL (0.55-1.30); GLOMERULAR FILTRATION RATE > 60.0 (>60); GLUCOSE, FASTING 83 MG/DL (70-100); LIPASE 179 U/L (73-393); POTASSIUM SERUM 3.9 MEQ/L (3.5-5.1); SODIUM LEVEL 143 MEQ/L (136-145); TOTAL PROTEIN 7.3 GM/DL (6.4-8.2)
== END 2018-08-15 22:58 | disposition left against medical advice (07) ==
LOC: M ED 20:33
DX: R10.9 Unspecified abdominal pain (principal); R11.0 Nausea; R56.9 Unspecified convulsions; F31.9 Bipolar disorder, unspecified; Z88.0 Allergy status to penicillin; F17.210 Nicotine dependence, cigarettes, uncomplicated
CPT/HCPCS: 80048; 80076; 81001; 82150; 83690; 84703; 85025; 96374; 99284; J1630

== ENCOUNTER 2018-08-25 06:34 | Emergency (ER) | payer MEDICAID ==
[2018-08-25] MEDS ORDERED: NS 1,000 ML IV SCH (07:16)
[2018-08-25 07:24] LABS: VENOUS O2 SATURATION 88.4 % (60.0-80.0); VENOUS PARTIAL PRESSURE CO2 44.1 mmHg (38.0-50.0); VENOUS PARTIAL PRESSURE O2 72.5 mmHg (30.0-50.0); VENOUS PH 7.118 UNITS (7.330-7.430); VENOUS TOTAL CO2 15.3 MEQ/L (24.0-28.0)
[2018-08-25 07:32] LABS: BASO % 0.4 % (0.0-1.0); EOS # 0.1 10^3/uL (0.0-0.50); EOS % 1.4 % (0.0-3.0); HEMATOCRIT 39.8 % (36.0-47.0); HEMOGLOBIN 12.6 g/dl (12.0-15.5); LYMPH # 2.7 10^3/uL (1.5-6.5); LYMPH % 27.1 % (24.0-44.0); MEAN CORPUSCULAR HEMOGLOBIN 32.1 pg (27.0-33.0); MEAN CORPUSCULAR HGB CONC 31.7 g/dl (32.0-36.5); MEAN CORPUSCULAR VOLUME 101.3 fl (80.0-96.0); MONO # 0.8 10^3/uL (0.0-0.8); MONO % 8.3 % (0.0-5.0); NEUTROPHILS # 6.3 10^3/uL (1.8-7.7); NEUTROPHILS % 62.4 % (36.0-66.0); PLATELET COUNT, AUTOMATED 287 10^3/uL (150-450); RED BLOOD COUNT 3.93 10^6/uL (4.00-5.40); WHITE BLOOD COUNT 10.1 10^3/uL (4.0-10.0)
[2018-08-25 07:36] LABS: HCG, SERUM QUALITATIVE NEGATIVE (NEGATIVE)
[2018-08-25 07:42] LABS: ACETAMINOPHEN LEVEL < 2.0 UG/ML (10.0-30.0); ALBUMIN 4.4 GM/DL (3.2-5.2); ALT/SGPT 18 U/L (12-78); BILIRUBIN,TOTAL 0.3 MG/DL (0.2-1.0); BLOOD UREA NITROGEN 12 MG/DL (7-18); CALCIUM LEVEL 8.5 MG/DL (8.5-10.1); CARBON DIOXIDE LEVEL 15 MEQ/L (21-32); CHLORIDE LEVEL 106 MEQ/L (98-107); CPK CREATINE PHOSPHOKINASE 117 U/L (26-192); CREATININE FOR GFR 1.02 MG/DL (0.55-1.30); ETHYL ALCOHOL (ETHANOL) < 0.003 % (0.000-0.010); GLOMERULAR FILTRATION RATE > 60.0 (>60); GLUCOSE, FASTING 109 MG/DL (70-100); POTASSIUM SERUM 3.9 MEQ/L (3.5-5.1); SALICYLATE LEVEL 4.7 MG/DL (5.0-30.0); SODIUM LEVEL 138 MEQ/L (136-145); TOTAL PROTEIN 7.6 GM/DL (6.4-8.2)
[2018-08-25] MEDS ORDERED: NS 1,000 ML IV ONE ×2 (08:00→10:30)
[2018-08-25 09:02] LABS: AMPHETAMINES LEVEL URINE POSITIVE (NEGATIVE); BARBITURATES URINE NEGATIVE (NEGATIVE); BENZODIAZEPINES URINE NEGATIVE (NEGATIVE); CANNABINOIDS URINE POSITIVE (NEGATIVE); COCAINE METABOLITE URINE NEGATIVE (NEGATIVE); METHADONE URINE NEGATIVE (NEGATIVE); OPIATES URINE NEGATIVE (NEGATIVE); PHENCYCLIDINE URINE NEGATIVE (NEGATIVE)
[2018-08-25 10:36] LABS: VENOUS BASE EXCESS -5.6 (-2.0-2.0); VENOUS HCO3 19.2 MEQ/L (23.0-27.0); VENOUS O2 SATURATION 92.6 % (60.0-80.0); VENOUS PARTIAL PRESSURE CO2 35.5 mmHg (38.0-50.0); VENOUS PARTIAL PRESSURE O2 68.1 mmHg (30.0-50.0); VENOUS PH 7.352 UNITS (7.330-7.430); VENOUS STANDARD HCO3 19.8 MEQ/L; VENOUS TOTAL CO2 20.3 MEQ/L (24.0-28.0)
[2018-08-25 12:45] VITALS: BP 93/61
--- NOTE | 2018-08-25 22:07 | ECGEPIP ---
Stationary ECG Study 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
== END 2018-08-25 13:00 | disposition home or self-care (01) ==
LOC: M ED 06:34
DX: R56.9 Unspecified convulsions (principal); F19.10 Other psychoactive substance abuse, uncomplicated; Z91.14 Patient's other noncompliance with medication regimen; F44.5 Conversion disorder with seizures or convulsions; F31.9 Bipolar disorder, unspecified; F10.10 Alcohol abuse, uncomplicated; F12.10 Cannabis abuse, uncomplicated; Z88.0 Allergy status to penicillin
CPT/HCPCS: 80053; 80307; 82550; 82803; 84443; 84703; 85025; 93005; 93041; 96360; 96361; 99285; G0480

== ENCOUNTER 2019-01-10 16:23 | Emergency (ER) | payer MEDICAID, OTHER ==
[~2019-01-10] VITALS: Ht 154.9 cm; Wt 47.7 kg
[2019-01-10 16:33] VITALS: BP 105/69
[2019-01-10] MEDS ORDERED: TOPA50TA8 PO (18:23)
== END 2019-01-10 17:03 | disposition left against medical advice (07) ==
LOC: M ED 16:23
DX: Z53.21 Procedure and treatment not carried out due to patient leaving prior to being seen by health care provider (principal)

== ENCOUNTER 2019-01-10 16:57 | Emergency (ER) | payer MEDICAID, OTHER ==
[2019-01-10] MEDS ORDERED: NS 1,000 ML IV ONE (17:15)
[2019-01-10 17:38] LABS: VENOUS BASE EXCESS -1.5 (-2.0-2.0); VENOUS HCO3 23.3 MEQ/L (23.0-27.0); VENOUS O2 SATURATION 97.1 % (60.0-80.0); VENOUS PARTIAL PRESSURE CO2 39.4 mmHg (38.0-50.0); VENOUS PARTIAL PRESSURE O2 89.7 mmHg (30.0-50.0); VENOUS PH 7.389 UNITS (7.330-7.430); VENOUS STANDARD HCO3 23.2 MEQ/L; VENOUS TOTAL CO2 24.5 MEQ/L (24.0-28.0)
[2019-01-10 17:39] LABS: BASO % 0.3 % (0.0-1.0); EOS % 0.3 % (0.0-3.0); HEMATOCRIT 38.3 % (36.0-47.0); HEMOGLOBIN 12.5 g/dl (12.0-15.5); LYMPH # 1.5 10^3/uL (1.5-6.5); LYMPH % 16.9 % (24.0-44.0); MEAN CORPUSCULAR HEMOGLOBIN 32.5 pg (27.0-33.0); MEAN CORPUSCULAR HGB CONC 32.6 g/dl (32.0-36.5); MEAN CORPUSCULAR VOLUME 99.5 fl (80.0-96.0); MONO # 0.4 10^3/uL (0.0-0.8); MONO % 4.9 % (0.0-5.0); NEUTROPHILS # 6.7 10^3/uL (1.8-7.7); NEUTROPHILS % 77.3 % (36.0-66.0); PLATELET COUNT, AUTOMATED 307 10^3/uL (150-450); RED BLOOD COUNT 3.85 10^6/uL (4.00-5.40); WHITE BLOOD COUNT 8.6 10^3/uL (4.0-10.0)
[2019-01-10 17:57] LABS: OSMOLALITY SERUM 288 MOSM/KG (275-295)
[2019-01-10] MEDS ORDERED: TOPIRAMATE (TopAMAX) 25 MG TAB PO ONE (18:00)
--- NOTE | 2019-01-10 18:01 | REPVR ---
EXAM: CT Cervical Spine Without Contrast EXAM DATE/TIME: 01/10/2019 5:10 PM CLINICAL HISTORY: 28 years old, female; Injury or trauma; Fall; Initial encounter; Blunt trauma TECHNIQUE: Imaging protocol: Computed tomography images of the cervical spine without contrast. Coronal and sagittal reformatted images were created and reviewed. Radiation optimization: All CT scans at this facility use at least one of these dose optimization techniques: automated exposure control; mA and/or kV adjustment per patient size (includes targeted exams where dose is matched to clinical indication); or iterative reconstruction. COMPARISON: No relevant prior studies available. FINDINGS: Vertebrae: No acute fracture. Normal alignment. C2-C3: No disc herniation. No spinal stenosis. No neural foraminal narrowing. C3-C4: No disc herniation. No spinal stenosis. No neural foraminal narrowing. C4-C5: No disc herniation. No spinal stenosis. No neural foraminal narrowing. C5-C6: No disc herniation. No spinal stenosis. No neural foraminal narrowing. C6-C7: No disc herniation. No spinal stenosis. No neural foraminal narrowing. C7-T1: No disc herniation. No spinal stenosis. No neural foraminal narrowing. Soft tissues: Unremarkable. Lungs: Paraseptal type emphysema and very mild centrilobular emphysema at both lung apices IMPRESSION: No acute findings. Electronically signed by: Evelyn Machado On 01/10/2019 18:00:44 PM
--- NOTE | 2019-01-10 18:02 | REPVR ---
EXAM: CT Head Without Contrast EXAM DATE/TIME: 01/10/2019 5:10 PM CLINICAL HISTORY: 28 years old, female; Injury or trauma; Fall; Initial encounter; Blunt trauma (contusions or hematomas); Consciousness not specified TECHNIQUE: Imaging protocol: Computed tomography images of the head without contrast. Radiation optimization: All CT scans at this facility use at least one of these dose optimization techniques: automated exposure control; mA and/or kV adjustment per patient size (includes targeted exams where dose is matched to clinical indication); or iterative reconstruction. COMPARISON: CT Head without contrast 12/29/2017 3:03 PM FINDINGS: Brain: Normal. No hemorrhage. Unremarkable white matter. No mass effect. Ventricles: Normal. No ventriculomegaly. Bones/joints: Unremarkable. No acute fracture. Sinuses: Minimal mucosal thickening in the ethmoid air cells. Mastoid air cells: Visualized mastoid air cells are well aerated. No mastoid effusion. Soft tissues: Unremarkable. IMPRESSION: 1. No acute findings. 2. Mild chronic ethmoid sinusitis Electronically signed by: Evelyn Machado On 01/10/2019 18:02:19 PM
[2019-01-10 18:18] LABS: ACETAMINOPHEN LEVEL < 2.0 UG/ML (10.0-30.0); ALBUMIN 4.6 GM/DL (3.2-5.2); ALT/SGPT 23 U/L (12-78); BILIRUBIN,DIRECT < 0.1 MG/DL (0.0-0.2); BILIRUBIN,TOTAL 0.1 MG/DL (0.2-1.0); BLOOD UREA NITROGEN 6 MG/DL (7-18); CALCIUM LEVEL 8.3 MG/DL (8.5-10.1); CARBON DIOXIDE LEVEL 21 MEQ/L (21-32); CHLORIDE LEVEL 107 MEQ/L (98-107); CK-MB VALUE MASS < 1.0 NG/ML (<3.6); CPK CREATINE PHOSPHOKINASE 92 U/L (26-192); CREATININE FOR GFR 0.83 MG/DL (0.55-1.30); ETHYL ALCOHOL (ETHANOL) < 0.003 % (0.000-0.010); GLOMERULAR FILTRATION RATE > 60.0 (>60); GLUCOSE, FASTING 107 MG/DL (70-100); MB/CK RELATIVE INDEX 1.09 (< OR =4); POTASSIUM SERUM 4.3 MEQ/L (3.5-5.1); SALICYLATE LEVEL 1.8 MG/DL (5.0-30.0); SODIUM LEVEL 140 MEQ/L (136-145); TOTAL PROTEIN 7.3 GM/DL (6.4-8.2); TROPONIN I < 0.02 NG/ML (< 0.10)
[2019-01-10] MEDS ORDERED: TOPA50TA8 PO (18:23)
[2019-01-10 18:42] VITALS: BP 110/75
--- NOTE | 2019-01-11 12:08 | REP ---
AP PORTABLE CHEST: 01/10/2019. COMPARISON: 12/29/2017. CLINICAL HISTORY: Altered mental status. FINDINGS: Lung araiza are adequately inflated. CP angles sharply defined. There is no effusion or lateral pleural thickening. The inferior left scapula tip superimposes over the anterior rib and vessels in the left mid lower lung zone. There is no infiltrate, effusion, atelectasis, or mass. Heart, mediastinal and hilar contours are normal. Airway intact. Bones unremarkable. No free air. IMPRESSION: 1. No acute cardiopulmonary change. Electronically Signed by Jalen Quintanilla MD 01/11/2019 12:23 P
--- NOTE | 2019-01-12 10:07 | ECGEPIP ---
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
== END 2019-01-10 18:54 | disposition home or self-care (01) ==
LOC: M ED 16:57
DX: G40.909 Epilepsy, unspecified, not intractable, without status epilepticus (principal); Z79.899 Other long term (current) drug therapy; Z88.0 Allergy status to penicillin
CPT/HCPCS: 70450; 71045; 72125; 80048; 80076; 82550; 82553; 82803; 83605; 83930; 84443; 85025; 87040; 93005; 93041; 96360; 99284; G0480

== ENCOUNTER → 2019-01-18 | Outpatient (CLI) | payer MEDICAID ==
[~2019-01-18] MED LIST changes: +TOPA50TA8 PO
[2019-01-18 17:40] LABS: APPEARANCE, URINE HAZY (CLEAR); BACTERIA, URINE AUTO 1+ (NEGATIVE); BILIRUBIN, URINE AUTO NEGATIVE (NEGATIVE); BLOOD, URINE BLOOD NEGATIVE (NEGATIVE); COLOR, URINE YELLOW (YELLOW); GLUCOSE, URINE (UA) AUTO NEGATIVE (NEGATIVE); KETONE, URINE AUTO NEGATIVE (NEGATIVE); LEUKOCYTE ESTERASE, URINE AUTO 2+ (NEGATIVE); MUCUS, URINE SMALL (NEGATIVE); NITRITE, URINE AUTO NEGATIVE (NEGATIVE); PROTEIN, URINE AUTO NEGATIVE (NEGATIVE); RBC, URINE AUTO 8 /HPF (0-3); SQUAMOUS EPITHELIAL CELL UR AU 9 /HPF (0-6); UROBILINOGEN, URINE AUTO 0.2 mg/dL (0.0-2.0); WBC, URINE AUTO 27 /HPF (0-3)
[2019-01-18 17:41] LABS: BASO % 0.4 % (0.0-1.0); EOS # 0.2 10^3/uL (0.0-0.50); EOS % 2.2 % (0.0-3.0); HEMATOCRIT 41.3 % (36.0-47.0); HEMOGLOBIN 13.6 g/dl (12.0-15.5); LYMPH # 2.7 10^3/uL (1.5-6.5); LYMPH % 36.3 % (24.0-44.0); MEAN CORPUSCULAR HEMOGLOBIN 32.5 pg (27.0-33.0); MEAN CORPUSCULAR HGB CONC 32.9 g/dl (32.0-36.5); MEAN CORPUSCULAR VOLUME 98.6 fl (80.0-96.0); MONO # 0.5 10^3/uL (0.0-0.8); PLATELET COUNT, AUTOMATED 381 10^3/uL (150-450); RED BLOOD COUNT 4.19 10^6/uL (4.00-5.40); WHITE BLOOD COUNT 7.3 10^3/uL (4.0-10.0)
[2019-01-18 18:04] LABS: ALT/SGPT 84 U/L (12-78); BILIRUBIN,TOTAL 0.2 MG/DL (0.2-1.0); BLOOD UREA NITROGEN 11 MG/DL (7-18); CALCIUM LEVEL 8.7 MG/DL (8.5-10.1); CARBON DIOXIDE LEVEL 26 MEQ/L (21-32); CHLORIDE LEVEL 106 MEQ/L (98-107); CHOLESTEROL LEVEL 225 MG/DL (<200); CHOLESTEROL RISK RATIO 4.166 (<5); CREATININE FOR GFR 0.87 MG/DL (0.55-1.30); FREE T4 0.46 NG/DL (0.76-1.46); GLOMERULAR FILTRATION RATE > 60.0 (>60); GLUCOSE, FASTING 80 MG/DL (70-100); HDL CHOLESTEROL 54 MG/DL (>40); LDL CHOLESTEROL 117 MG/DL (<100); NON-HDL-C 171 MG/DL; POTASSIUM SERUM 4.1 MEQ/L (3.5-5.1); SODIUM LEVEL 141 MEQ/L (136-145); TOTAL PROTEIN 7.6 GM/DL (6.4-8.2); TRIGLYCERIDES LEVEL 270 MG/DL (<150)
[2019-01-18 18:06] LABS: TOTAL 25(OH) VITAMIN D 28.2 NG/ML (30.0-100.0)
[2019-01-18 20:06] LABS: HEMOGLOBIN A1c 5.2 %
[2019-01-21 00:06] LABS: Lyme Disease IgG/IgM Antibodie <0.91 ISR (0.00-0.90); Lyme Disease IgM Ab Quantitati <0.80 index (0.00-0.79)
== END ==
LOC: M LAB 16:28
PROVIDERS: ATTEND Family Medicine
DX: E05.20 Thyrotoxicosis with toxic multinodular goiter without thyrotoxic crisis or storm (principal); M25.50 Pain in unspecified joint; Z13.228 Encounter for screening for other metabolic disorders

== ENCOUNTER → 2019-04-14 | Outpatient (CLI) | payer OTHER ==
[~2019-04-14] MED LIST changes: +GABA-843 PO; -SERT-155; +SERT50TA29
--- NOTE | 2019-04-14 18:53 | REP ---
MRI thoracic spine: 04/14/2019. Indication: Thoracic back pain. Comparison: None. Technique: Multiplanar short and long TR sequences of the thoracic spine were obtained without IV Gadolinium. Findings: Thoracic vertebral body alignment is anatomic. No worrisome marrow signal is present. Multiple chronic appearing Schmorl's nodes are noted throughout the mid to lower thoracic spine. The visualized cord is normal. There is a tiny left paracentral T7/T8 disc protrusion. Mild disc bulging is present throughout without significant cord compression. The neural foramen are patent throughout. Impression: Relatively mild degenerative sequelae of the thoracic spine without cord compression or significant neural foraminal narrowing. Electronically Signed by Vick Langford DO 04/14/2019 06:45 P
== END ==
LOC: M RAD 16:45
PROVIDERS: ATTEND Family Medicine
DX: M51.34 Other intervertebral disc degeneration, thoracic region (principal)

== ENCOUNTER 2019-04-15 13:26 | Emergency (ER) | payer OTHER ==
[~2019-04-15 13:26] MED LIST changes: -GABA-843 PO
[2019-04-15] MEDS ORDERED: GABA-843 PO (13:38)
[2019-04-15] MEDS ORDERED: ZONI50CA3 PO (13:45)
[2019-04-15] MEDS ORDERED: NS 1,000 ML IV ONE (14:00)
[2019-04-15 14:06] LABS: BASO % 0.4 % (0.0-1.0); EOS # 0.2 10^3/uL (0.0-0.5); EOS % 2.2 % (0.0-3.0); HEMATOCRIT 38.8 % (36.0-47.0); HEMOGLOBIN 12.3 g/dl (12.0-15.5); LYMPH # 3.1 10^3/uL (1.5-5.0); LYMPH % 30.2 % (24.0-44.0); MEAN CORPUSCULAR HEMOGLOBIN 30.8 pg (27.0-33.0); MEAN CORPUSCULAR HGB CONC 31.7 g/dl (32.0-36.5); MEAN CORPUSCULAR VOLUME 97.2 fl (80.0-96.0); MONO # 0.6 10^3/uL (0.0-0.8); MONO % 6.1 % (0.0-5.0); NEUTROPHILS # 6.1 10^3/uL (1.5-8.5); NEUTROPHILS % 60.8 % (36.0-66.0); PLATELET COUNT, AUTOMATED 389 10^3/uL (150-450); RED BLOOD COUNT 3.99 10^6/uL (4.00-5.40); WHITE BLOOD COUNT 10.1 10^3/uL (4.0-10.0)
[2019-04-15 14:28] LABS: HCG, SERUM QUALITATIVE NEGATIVE (NEGATIVE)
[2019-04-15 14:36] LABS: BLOOD UREA NITROGEN 9 MG/DL (7-18); CALCIUM LEVEL 9.9 MG/DL (8.5-10.1); CARBON DIOXIDE LEVEL 29 MEQ/L (21-32); CHLORIDE LEVEL 105 MEQ/L (98-107); GLOMERULAR FILTRATION RATE > 60.0 (>60); GLUCOSE, FASTING 91 MG/DL (70-100); POTASSIUM SERUM 4.5 MEQ/L (3.5-5.1); SODIUM LEVEL 141 MEQ/L (136-145)
--- NOTE | 2019-04-15 15:01 | REP ---
Single view chest: 04/15/2019. Indication: Seizure. Comparison: 01/10/2019. Findings: The lungs are clear. There is no pleural effusion or pneumothorax. The cardiomediastinal silhouette is unremarkable. Impression: No acute cardiopulmonary process. Electronically Signed by Vick Langford DO 04/15/2019 02:52 P
[2019-04-15 15:15] VITALS: BP 108/72
--- NOTE | 2019-04-16 13:03 | ECGEPIP ---
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
== END 2019-04-15 15:42 | disposition left against medical advice (07) ==
LOC: M ED 13:26 → EDBD 13:26 → M ED 15:42
DX: G40.909 Epilepsy, unspecified, not intractable, without status epilepticus (principal); Z53.21 Procedure and treatment not carried out due to patient leaving prior to being seen by health care provider; Z91.14 Patient's other noncompliance with medication regimen; F17.200 Nicotine dependence, unspecified, uncomplicated; F12.10 Cannabis abuse, uncomplicated; Z79.899 Other long term (current) drug therapy; Z88.0 Allergy status to penicillin

== ENCOUNTER → 2019-12-29 | Outpatient (CLI) | payer OTHER ==
[~2019-12-29] MED LIST changes: +GABA-843 PO; +ZONI50CA11 PO; -ZONI50CA3 PO
--- NOTE | 2020-02-16 09:00 | REP ---
ULTRASOUND OF THE ANTERIOR CHEST WALL: HISTORY: Lump over xiphoid process. FINDINGS: Real time ultrasound evaluation of anterior chest wall is performed at the site of the lump over the xiphoid process. No discrete cystic or solid nodule is seen at that location. IMPRESSION: No sonographic evidence of a cystic or solid mass at the site of the palpable lump over the xiphoid process. MTDD
== END ==
LOC: M RAD 14:30
PROVIDERS: ATTEND Physician Assistant
DX: R22.2 Localized swelling, mass and lump, trunk (principal)

== ENCOUNTER 2020-08-17 21:55 | Emergency (ER) | payer OTHER ==
[~2020-08-17] VITALS: Ht 165.1 cm; Wt 52.9 kg
[~2020-08-17 21:55] MED LIST changes: +GABA-282 PO; -GABA-843 PO
[2020-08-17] MEDS ORDERED: ZONI100C17 PO (22:18)
[2020-08-17] MEDS ORDERED: GABA-845 PO (22:18)
[2020-08-17] MEDS ORDERED: HALOPERIDOL 5MG/ML VIAL (J1630 PER 1) IM ONE (22:50)
[2020-08-17] MEDS ORDERED: diphenhydrAMINE 50MG/ML VIAL (J1200) IM ONE (22:50)
[2020-08-17] MEDS ORDERED: LORazepam 2 MG/ML VIAL IM ONE (22:50)
[2020-08-17] MEDS ORDERED: HALOPERIDOL 5MG/ML VIAL (J1630 PER 1) As Ordered ONE (22:51)
[2020-08-17] MEDS ORDERED: LORazepam 2 MG/ML VIAL As Ordered ONE (22:51)
[2020-08-17] MEDS ORDERED: diphenhydrAMINE 50MG/ML VIAL (J1200) As Ordered ONE (22:51)
[2020-08-17 23:04] LABS: HEMATOCRIT 39.4 % (36.0-47.0); HEMOGLOBIN 13.1 g/dl (12.0-15.5); MEAN CORPUSCULAR HEMOGLOBIN 30.6 pg (27.0-33.0); MEAN CORPUSCULAR HGB CONC 33.2 g/dl (32.0-36.5); MEAN CORPUSCULAR VOLUME 92.1 fl (80.0-96.0); PLATELET COUNT, AUTOMATED 415 10^3/uL (150-450); RED BLOOD COUNT 4.28 10^6/uL (4.00-5.40); WHITE BLOOD COUNT 6.4 10^3/uL (4.0-10.0)
[2020-08-17 23:21] LABS: AMPHETAMINES LEVEL URINE NEGATIVE (NEGATIVE); BARBITURATES URINE NEGATIVE (NEGATIVE); BENZODIAZEPINES URINE NEGATIVE (NEGATIVE); CANNABINOIDS URINE POSITIVE (NEGATIVE); COCAINE METABOLITE URINE NEGATIVE (NEGATIVE); METHADONE URINE NEGATIVE (NEGATIVE); OPIATES URINE NEGATIVE (NEGATIVE); PHENCYCLIDINE URINE NEGATIVE (NEGATIVE)
[2020-08-17 23:25] LABS: HCG, SERUM QUALITATIVE NEGATIVE (NEGATIVE)
[2020-08-17 23:34] LABS: ACETAMINOPHEN LEVEL < 2.0 UG/ML (10.0-30.0); ALBUMIN 3.9 GM/DL (3.2-5.2); ALT/SGPT 19 U/L (12-78); BILIRUBIN,DIRECT < 0.1 MG/DL (0.0-0.2); BLOOD UREA NITROGEN 7 MG/DL (7-18); CALCIUM LEVEL 8.4 MG/DL (8.5-10.1); CARBON DIOXIDE LEVEL 26 MEQ/L (21-32); CHLORIDE LEVEL 110 MEQ/L (98-107); CREATININE FOR GFR 0.49 MG/DL (0.55-1.30); ETHYL ALCOHOL (ETHANOL) 0.263 % (0.000-0.010); GLOMERULAR FILTRATION RATE > 60.0 (>60); GLUCOSE, FASTING 100 MG/DL (70-100); POTASSIUM SERUM 4.1 MEQ/L (3.5-5.1); SALICYLATE LEVEL 3.3 MG/DL (5.0-30.0); SODIUM LEVEL 145 MEQ/L (136-145); TOTAL PROTEIN 7.3 GM/DL (6.4-8.2)
[2020-08-18] MEDS ORDERED: NS 1,000 ML IV ONE (00:15)
[2020-08-18 00:38] LABS: BILIRUBIN,TOTAL < 0.1 MG/DL (0.2-1.0)
[2020-08-18 12:30] VITALS: BP 112/63
== END 2020-08-18 12:57 | disposition home or self-care (01) ==
LOC: M ED 21:55
DX: F10.129 Alcohol abuse with intoxication, unspecified (principal); F44.5 Conversion disorder with seizures or convulsions; F17.200 Nicotine dependence, unspecified, uncomplicated; F12.10 Cannabis abuse, uncomplicated; Z88.0 Allergy status to penicillin
CPT/HCPCS: 80048; 80076; 80143; 80307; 82077; 84443; 84703; 85027; 96360; 96372; 99285; J1200; J1630; J2060

== ENCOUNTER → 2020-08-22 | Outpatient (REF) | payer OTHER ==
[~2020-08-22] MED LIST changes: +GABA-845 PO; +ZONI100C17 PO
[2020-08-22 17:01] LABS: BASO % 0.7 % (0.0-1.0); EOS # 0.2 10^3/uL (0.0-0.5); EOS % 3.4 % (0.0-3.0); HEMATOCRIT 39.2 % (36.0-47.0); LYMPH # 2.5 10^3/uL (1.5-5.0); LYMPH % 41.8 % (24.0-44.0); MEAN CORPUSCULAR HEMOGLOBIN 30.2 pg (27.0-33.0); MEAN CORPUSCULAR HGB CONC 33.2 g/dl (32.0-36.5); MEAN CORPUSCULAR VOLUME 91.2 fl (80.0-96.0); MONO # 0.5 10^3/uL (0.0-0.8); MONO % 7.8 % (2.0-8.0); NEUTROPHILS # 2.7 10^3/uL (1.5-8.5); PLATELET COUNT, AUTOMATED 391 10^3/uL (150-450); WHITE BLOOD COUNT 5.9 10^3/uL (4.0-10.0)
[2020-08-22 17:16] LABS: ALBUMIN 4.1 GM/DL (3.2-5.2); ALT/SGPT 17 U/L (12-78); BILIRUBIN,TOTAL 0.3 MG/DL (0.2-1.0); BLOOD UREA NITROGEN 11 MG/DL (7-18); CALCIUM LEVEL 8.8 MG/DL (8.5-10.1); CARBON DIOXIDE LEVEL 26 MEQ/L (21-32); CHLORIDE LEVEL 104 MEQ/L (98-107); CHOLESTEROL LEVEL 235 MG/DL (<200); CHOLESTEROL RISK RATIO 2.865 (<5); CREATININE FOR GFR 0.64 MG/DL (0.55-1.30); GLOMERULAR FILTRATION RATE > 60.0 (>60); GLUCOSE, FASTING 117 MG/DL (70-100); HDL CHOLESTEROL 82 MG/DL (>40); LDL CHOLESTEROL 134 MG/DL (<100); NON-HDL-C 153 MG/DL; POTASSIUM SERUM 4.6 MEQ/L (3.5-5.1); SODIUM LEVEL 135 MEQ/L (136-145); TOTAL PROTEIN 7.6 GM/DL (6.4-8.2); TRIGLYCERIDES LEVEL 96 MG/DL (<150)
[2020-08-22 17:18] LABS: TOTAL 25(OH) VITAMIN D 13.6 NG/ML (30.0-100.0)
[2020-08-22 17:52] LABS: ERYTHROCYTE SEDIMENTATION RATE 7 mm/hr (0-20)
[2020-08-24 18:07] LABS: ANTINUCLEAR ANTIBODIES DIRECT Negative (Negative)
== END ==
LOC: M LAB REF 16:14
PROVIDERS: ATTEND Physician Assistant
DX: R94.6 Abnormal results of thyroid function studies (principal); R21 Rash and other nonspecific skin eruption; E78.5 Hyperlipidemia, unspecified

== ENCOUNTER 2020-10-19 23:43 | Emergency (ER) | payer OTHER ==
[~2020-10-19 23:43] MED LIST changes: +BACTDSTA PO; +GABA-283 PO; -GABA-845 PO; -SULF1TAB93 PO
[2020-10-19 23:44] VITALS: BP 115/72
== END 2020-10-20 00:40 | disposition left against medical advice (07) ==
LOC: M ED 23:43
DX: Z53.21 Procedure and treatment not carried out due to patient leaving prior to being seen by health care provider (principal)

== ENCOUNTER 2021-06-14 12:01 | Emergency (ER) | payer OTHER | END 2021-06-14 18:12 | disposition left against medical advice (07) | LOC: M ED 12:01 | DX: Z53.21 Procedure and treatment not carried out due to patient leaving prior to being seen by health care provider (principal) ==

== ENCOUNTER 2023-02-26 15:24 | Inpatient (IN) | payer OTHER ==
[~2023-02-26] VITALS: Ht 165.1 cm; Wt 59.2 kg
[2023-02-26] VITALS (27 sets, daily range): BP systolic 78–120; BP diastolic 50–71; TEMP 89.4–96.8; O2SAT 84–100
[~2023-02-26 15:24] MED LIST changes: +EPINEPHrine 1MG/10ML SYRINGE 1.5IN ONE; -GABA-283 PO; +GABA-284 PO; +SODIUM BICARBONATE 8.4% INJ 50ML SYRINGE ONE; -ZONI100C17 PO; +ZONI100C67 PO
[2023-02-26] MEDS ORDERED: NOREPINEPHRINE 4MG IN D5 250ML 4 MG in IV 1 EA IV SCH ×2 (15:35)
[2023-02-26 15:40] LABS: HEMATOCRIT 31.3 % (36.0-47.0); HEMOGLOBIN 9.4 g/dl (12.0-15.5); MEAN CORPUSCULAR VOLUME 109.8 fl (80.0-96.0); PLATELET COUNT, AUTOMATED 267 10^3/uL (150-450); RED BLOOD COUNT 2.85 10^6/uL (4.00-5.40); WHITE BLOOD COUNT 7.4 10^3/uL (4.0-10.0)
[2023-02-26 15:52] LABS: ABG BASE EXCESS -28.5 (-2.0-2.0); ABG HCO3 7.7 MMOL/L (22.0-26.0); ABG O2 SATURATION 90.1 % (95.0-99.0); ABG PARTIAL PRESSURE O2 105.8 mmHg (75.0-100.0); ABG STANDARD HCO3 4.3 MMOL/L. (22.0-26.0); ABG TOTAL CO2 9.8 MMOL/L (22.0-29.0)
[2023-02-26 15:54] LABS: ABG PARTIAL PRESSURE CO2 69.4 mmHg (35.0-45.0); ABG pH (ARTERIAL) 6.662 UNITS (7.350-7.450)
[2023-02-26] MEDS ORDERED: D5W 1,000 ML IV SCH (16:00)
[2023-02-26 16:03] LABS: INR 1.59; PROTHROMBIN TIME 18.6 SECONDS (12.5-14.5)
[2023-02-26 16:05] LABS: PARTIAL THROMBOPLASTIN TIME 67.9 SECONDS (24.8-34.2)
[2023-02-26 16:07] LABS: ABG BASE EXCESS -25.8 (-2.0-2.0); ABG HCO3 8.5 MMOL/L (22.0-26.0); ABG O2 SATURATION 81.7 % (95.0-99.0); ABG PARTIAL PRESSURE O2 77.2 mmHg (75.0-100.0); ABG STANDARD HCO3 5.6 MMOL/L. (22.0-26.0); ABG TOTAL CO2 10.4 MMOL/L (22.0-29.0)
[2023-02-26 16:09] LABS: ETHYL ALCOHOL (ETHANOL) < 0.003 % (0.000-0.010)
[2023-02-26 16:10] LABS: C REACTIVE PROTEIN QUANTITATIV < 0.40 MG/DL (<1.0)
[2023-02-26 16:11] LABS: ACETAMINOPHEN LEVEL < 2.0 UG/ML (10.0-20.0); AMYLASE 46 U/L (30-118); SALICYLATE LEVEL < 3.0 MG/DL (<30)
[2023-02-26 16:11] LABS: ABG PARTIAL PRESSURE CO2 61.5 mmHg (35.0-45.0); ABG pH (ARTERIAL) 6.758 UNITS (7.350-7.450)
[2023-02-26 16:16] LABS: LYMPHOCYTES 56 % (16-44); METAMYELOCYTES 2 % (0-0); MONOCYTES 3 % (0-5); MYELOCYTES 2 % (0-0); NEUTROPHILS 31 % (28-66); PLATELET ESTIMATE NORMAL (NORMAL); PROCALCITONIN <0.04 ng/ml
[2023-02-26 16:17] LABS: POIKILOCYTOSIS 1+
[2023-02-26 16:19] LABS: ALBUMIN 2.7 G/DL (3.2-5.2); ALKALINE PHOSPHATASE 41 U/L (46-116); ALT/SGPT 105 U/L (7.0-40); AST/SGOT 108 U/L (<34); BILIRUBIN,DIRECT < 0.1 MG/DL (<0.4); BILIRUBIN,TOTAL 0.2 MG/DL (0.3-1.2); BLOOD UREA NITROGEN 9 MG/DL (9-23); CALCIUM LEVEL 7.5 MG/DL (8.5-10.1); CARBON DIOXIDE LEVEL 12 MMOL/L (20-31); CHLORIDE LEVEL 108 MMOL/L (98-107); CREATININE FOR GFR 1.05 MG/DL (0.55-1.30); GLOMERULAR FILTRATION RATE > 60.0 (>60); GLUCOSE, FASTING 535 MG/DL (60-100); POTASSIUM SERUM 3.6 MMOL/L (3.5-5.1); SODIUM LEVEL 141 MMOL/L (136-145); TOTAL PROTEIN 4.6 G/DL (5.7-8.2)
[2023-02-26] MEDS ORDERED: NS 1,000 ML IV ONE ×2 (16:25)
[2023-02-26] MEDS ORDERED: LIDOCAINE 2% 5ML JELLY UROJET TOP ONE (16:30)
[2023-02-26 16:32] LABS: AMPHETAMINES LEVEL URINE NEGATIVE (NEGATIVE); BARBITURATES URINE NEGATIVE (NEGATIVE); COCAINE METABOLITE URINE NEGATIVE (NEGATIVE); METHADONE URINE NEGATIVE (NEGATIVE); PHENCYCLIDINE URINE NEGATIVE (NEGATIVE)
[2023-02-26 16:33] LABS: BENZODIAZEPINES URINE NEGATIVE (NEGATIVE); OPIATES URINE NEGATIVE (NEGATIVE)
[2023-02-26 16:35] LABS: CANNABINOIDS URINE POSITIVE (NEGATIVE)
[2023-02-26] MEDS ORDERED: MAG SULF 1GM/100ML (MAG RUN) 1 GM in IV 1 EA IV ONE (16:35)
[2023-02-26] MEDS ORDERED: MED REC IN PROGRESS XX SCH (16:40)
[2023-02-26 17:01] LABS: HCG, SERUM QUALITATIVE NEGATIVE (NEGATIVE)
[2023-02-26] MEDS: NOREPINEPHRINE 4MG IN D5 250ML 4 MG in IV 1 EA IV SCH ×4 (17:16→22:18)
[2023-02-26 17:17] LABS: D-DIMER QUANT 3.37 ug/mL (<0.5)
[2023-02-26 17:19] LABS: ABG BASE EXCESS -18.9 (-2.0-2.0); ABG HCO3 11.2 MMOL/L (22.0-26.0); ABG O2 SATURATION 91.3 % (95.0-99.0); ABG PARTIAL PRESSURE CO2 42.6 mmHg (35.0-45.0); ABG PARTIAL PRESSURE O2 79.2 mmHg (75.0-100.0); ABG STANDARD HCO3 10.4 MMOL/L. (22.0-26.0); ABG TOTAL CO2 12.5 MMOL/L (22.0-29.0); ABG pH (ARTERIAL) 7.036 UNITS (7.350-7.450)
[2023-02-26 17:56] LABS: LIPASE 28 U/L (12-53)
[2023-02-26 17:58] LABS: CK-MB VALUE MASS < 1.0 NG/ML (<3.6); MAGNESIUM LEVEL 2.8 MG/DL (1.8-2.4); PHOSPHORUS LEVEL 12.7 MG/DL (2.5-4.9)
[2023-02-26] MEDS ORDERED: DEXTROSE 50% 50ML SYRINGE IV PRN (18:00)
[2023-02-26] MEDS ORDERED: GLUCAGON INJ 1MG VIAL SC PRN (18:00)
[2023-02-26] MEDS ORDERED: GLUCOSE 4GM CHEW TABLET PO PRN (18:00)
[2023-02-26] MEDS ORDERED: SODIUM BICARBONATE 150 MEQ in STERILE WATER LITER BAG 1,000 ML IV SCH (18:00)
[2023-02-26] MEDS ORDERED: INSULIN LISPRO (NovoLOG) PER UNIT SC SCH (18:00)
[2023-02-26 18:05] LABS: CPK CREATINE PHOSPHOKINASE 57 U/L (34-145); MB/CK RELATIVE INDEX 1.75 (< OR =4)
[2023-02-26] MEDS: SODIUM BICARBONATE 150 MEQ in STERILE WATER LITER BAG 1,000 ML IV SCH (18:39)
[2023-02-26] MEDS: INSULIN LISPRO (NovoLOG) PER UNIT SC SCH (18:46)
[2023-02-26] MEDS: cefTRIAXone SOD 1 GM in D5W MINI-BAG PLUS 50 ML IV SCH (18:47)
[2023-02-26] MEDS: IPRATROPIUM 0.5MG/ALBUTEROL 2.5MG INH SOL UD 3ML (DUONEB) NEB SCH (19:55)
[2023-02-26 20:13] LABS: HEMATOCRIT 38.7 % (36.0-47.0); MEAN CORPUSCULAR HEMOGLOBIN 32.1 pg (27.0-33.0); MEAN CORPUSCULAR HGB CONC 32.3 g/dl (32.0-36.5); MEAN CORPUSCULAR VOLUME 99.5 fl (80.0-96.0); PLATELET COUNT, AUTOMATED 348 10^3/uL (150-450); RED BLOOD COUNT 3.89 10^6/uL (4.00-5.40)
[2023-02-26 20:13] LABS: ABG BASE EXCESS -11.5 (-2.0-2.0); ABG HCO3 17.8 MMOL/L (22.0-26.0); ABG O2 SATURATION 98.7 % (95.0-99.0); ABG PARTIAL PRESSURE CO2 54.7 mmHg (35.0-45.0); ABG PARTIAL PRESSURE O2 172.1 mmHg (75.0-100.0); ABG STANDARD HCO3 15.5 MMOL/L. (22.0-26.0); ABG TOTAL CO2 19.5 MMOL/L (22.0-29.0)
[2023-02-26 20:14] LABS: HEMOGLOBIN 12.5 g/dl (12.0-15.5)
[2023-02-26 20:17] LABS: ABG pH (ARTERIAL) 7.131 UNITS (7.350-7.450)
[2023-02-26 20:20] LABS: LDH LACTATE DEHYDROGENASE 507 U/L (120-246)
[2023-02-26 20:50] LABS: ALBUMIN 3.7 G/DL (3.2-5.2); ALKALINE PHOSPHATASE 89 U/L (46-116); ALT/SGPT 172 U/L (7.0-40); AST/SGOT 199 U/L (<34); BILIRUBIN,TOTAL < 0.2 MG/DL (0.3-1.2); BLOOD UREA NITROGEN 9 MG/DL (9-23); CALCIUM LEVEL 6.5 MG/DL (8.5-10.1); CARBON DIOXIDE LEVEL 19 MMOL/L (20-31); CHLORIDE LEVEL 112 MMOL/L (98-107); CHOLESTEROL LEVEL 201 MG/DL (<200); CPK CREATINE PHOSPHOKINASE 119 U/L (34-145); GLOMERULAR FILTRATION RATE > 60.0 (>60); GLUCOSE, FASTING 322 MG/DL (60-100); PHOSPHORUS LEVEL 5.7 MG/DL (2.5-4.9); POTASSIUM SERUM 6.3 MMOL/L (3.5-5.1); SODIUM LEVEL 139 MMOL/L (136-145); TOTAL PROTEIN 6.1 G/DL (5.7-8.2); TRIGLYCERIDES LEVEL 99 MG/DL (<150)
[2023-02-26] MEDS ORDERED: HumuLIN R (REGULAR) INSULIN (NovoLIN R) **100U/ML** PER UNIT IV STA (20:50)
[2023-02-26] MEDS ORDERED: DEXTROSE 50% 50ML SYRINGE IV STA (20:50)
[2023-02-26] MEDS ORDERED: CALCIUM GLUCONATE 1,000 MG in D5W MINI-BAG PLUS 100 ML IV ONE (21:15)
[2023-02-26] MEDS ORDERED: SOD POLYSTYRENE SULFONATE SUSP 15GM 60ML UD PO ONE (21:15)
[2023-02-27] VITALS (85 sets, daily range): BP systolic 84–170; BP diastolic 46–103; TEMP 96.4–99.1; O2SAT 91–100
[2023-02-27] MEDS: INSULIN LISPRO (NovoLOG) PER UNIT SC SCH ×4 (00:13→18:00)
[2023-02-27] MEDS: NOREPINEPHRINE 4MG IN D5 250ML 4 MG in IV 1 EA IV SCH ×6 (04:11→23:25)
[2023-02-27 04:57] LABS: HEMATOCRIT 36.5 % (36.0-47.0); HEMOGLOBIN 11.9 g/dl (12.0-15.5); MEAN CORPUSCULAR HEMOGLOBIN 32.2 pg (27.0-33.0); MEAN CORPUSCULAR HGB CONC 32.6 g/dl (32.0-36.5); MEAN CORPUSCULAR VOLUME 98.6 fl (80.0-96.0); WHITE BLOOD COUNT 11.7 10^3/uL (4.0-10.0)
[2023-02-27 04:58] LABS: PLATELET COUNT, AUTOMATED 207 10^3/uL (150-450)
[2023-02-27 05:27] LABS: ALBUMIN 3.2 G/DL (3.2-5.2); BLOOD UREA NITROGEN 9 MG/DL (9-23); CALCIUM LEVEL 7.5 MG/DL (8.5-10.1); CARBON DIOXIDE LEVEL 29 MMOL/L (20-31); CHLORIDE LEVEL 125 MMOL/L (98-107); GLOMERULAR FILTRATION RATE > 60.0 (>60); GLUCOSE, FASTING 54 MG/DL (60-100); PHOSPHORUS LEVEL 2.8 MG/DL (2.5-4.9); POTASSIUM SERUM 4.1 MMOL/L (3.5-5.1); SODIUM LEVEL 158 MMOL/L (136-145)
[2023-02-27 05:54] LABS: ABG BASE EXCESS -0.9 (-2.0-2.0); ABG HCO3 26.4 MMOL/L (22.0-26.0); ABG O2 SATURATION 99.1 % (95.0-99.0); ABG PARTIAL PRESSURE CO2 55.3 mmHg (35.0-45.0); ABG STANDARD HCO3 23.8 MMOL/L. (22.0-26.0); ABG TOTAL CO2 28.1 MMOL/L (22.0-29.0); ABG pH (ARTERIAL) 7.296 UNITS (7.350-7.450)
[2023-02-27] MEDS: SODIUM BICARBONATE 150 MEQ in STERILE WATER LITER BAG 1,000 ML IV SCH (06:00)
[2023-02-27] MEDS: IPRATROPIUM 0.5MG/ALBUTEROL 2.5MG INH SOL UD 3ML (DUONEB) NEB SCH ×4 (07:12→20:53)
[2023-02-27] MEDS: ENOXAPARIN 40MG/0.4ML SYRINGE (J1650 PER 10MG) SC SCH (08:00)
[2023-02-27] MEDS ORDERED: D5W/0.45% SODIUM CHLORIDE 1,000 ML IV ONE ×3 (09:00→23:30)
[2023-02-27] MEDS: VASOPRESSIN INJ 20 UNITS in NS 499 ML IV SCH ×2 (10:12→18:00)
[2023-02-27] MEDS: D5W/0.45% SODIUM CHLORIDE 1,000 ML IV SCH ×2 (11:03→15:30)
[2023-02-27 17:50] LABS: VENOUS BASE EXCESS -2.7 (-2.0-2.0); VENOUS HCO3 23.1 MMOL/L (23.0-27.0); VENOUS O2 SATURATION 99.3 % (60.0-80.0); VENOUS PARTIAL PRESSURE CO2 44.2 mmHg (38.0-50.0); VENOUS PH 7.336 UNITS (7.330-7.430); VENOUS STANDARD HCO3 22.2 MMOL/L; VENOUS TOTAL CO2 24.5 MMOL/L (24.0-28.0)
[2023-02-27] MEDS: cefTRIAXone SOD 1 GM in D5W MINI-BAG PLUS 50 ML IV SCH (18:01)
[2023-02-27 18:28] LABS: ALBUMIN 2.7 G/DL (3.2-5.2); ALKALINE PHOSPHATASE 48 U/L (46-116); ALT/SGPT 95 U/L (7.0-40); AST/SGOT 80 U/L (<34); BILIRUBIN,TOTAL 0.2 MG/DL (0.3-1.2); BLOOD UREA NITROGEN 9 MG/DL (9-23); CALCIUM LEVEL 6.9 MG/DL (8.5-10.1); CARBON DIOXIDE LEVEL 26 MMOL/L (20-31); CHLORIDE LEVEL 119 MMOL/L (98-107); CREATININE FOR GFR 0.66 MG/DL (0.55-1.30); GLOMERULAR FILTRATION RATE > 60.0 (>60); GLUCOSE, FASTING 134 MG/DL (60-100); SODIUM LEVEL 152 MMOL/L (136-145); TOTAL PROTEIN 4.7 G/DL (5.7-8.2)
[2023-02-27] MEDS: propofoL 1,000 MG in IV 1 EA IV SCH (18:55)
[2023-02-27] MEDS ORDERED: CALCIUM GLUCONATE 1,000 MG in D5W MINI-BAG PLUS 100 ML IV ONE ×2 (20:00→21:00)
[2023-02-27] MEDS: KCL 20MEQ IN 100ML SWI (KRUN) 20 MEQ in IV 1 EA IV SCH ×6 (20:36→23:06)
[2023-02-27] MEDS: DESMOPRESSIN ACETATE 1 MCG in NS 50 ML IV SCH (22:53)
[2023-02-28] VITALS (84 sets, daily range): BP systolic 82–125; BP diastolic 48–79; TEMP 97.3–98.3; O2SAT 90–100
[2023-02-28] MEDS: KCL 20MEQ IN 100ML SWI (KRUN) 20 MEQ in IV 1 EA IV SCH ×4 (00:23→01:27)
[2023-02-28] MEDS: VASOPRESSIN INJ 20 UNITS in NS 499 ML IV SCH ×3 (01:52→16:52)
[2023-02-28] MEDS: propofoL 1,000 MG in IV 1 EA IV SCH (04:00)
[2023-02-28 04:37] LABS: HEMATOCRIT 29.3 % (36.0-47.0); MEAN CORPUSCULAR HEMOGLOBIN 32.3 pg (27.0-33.0); MEAN CORPUSCULAR HGB CONC 32.4 g/dl (32.0-36.5); MEAN CORPUSCULAR VOLUME 99.7 fl (80.0-96.0); PLATELET COUNT, AUTOMATED 132 10^3/uL (150-450); RED BLOOD COUNT 2.94 10^6/uL (4.00-5.40); WHITE BLOOD COUNT 9.8 10^3/uL (4.0-10.0)
[2023-02-28 04:38] LABS: HEMOGLOBIN 9.5 g/dl (12.0-15.5)
[2023-02-28 05:02] LABS: ALBUMIN 2.4 G/DL (3.2-5.2); BLOOD UREA NITROGEN 7 MG/DL (9-23); CALCIUM LEVEL 6.9 MG/DL (8.5-10.1); CARBON DIOXIDE LEVEL 24 MMOL/L (20-31); CHLORIDE LEVEL 116 MMOL/L (98-107); CREATININE FOR GFR 0.57 MG/DL (0.55-1.30); GLOMERULAR FILTRATION RATE > 60.0 (>60); GLUCOSE, FASTING 86 MG/DL (60-100); POTASSIUM SERUM 4.2 MMOL/L (3.5-5.1); SODIUM LEVEL 145 MMOL/L (136-145)
[2023-02-28] MEDS: INSULIN LISPRO (NovoLOG) PER UNIT SC SCH ×4 (05:35→17:58)
[2023-02-28] MEDS: IPRATROPIUM 0.5MG/ALBUTEROL 2.5MG INH SOL UD 3ML (DUONEB) NEB SCH ×4 (07:39→19:59)
[2023-02-28] MEDS: NOREPINEPHRINE 4MG IN D5 250ML 4 MG in IV 1 EA IV SCH ×2 (09:04)
[2023-02-28] MEDS: DESMOPRESSIN ACETATE 1 MCG in NS 50 ML IV SCH ×2 (09:28→22:35)
[2023-02-28] MEDS: ENOXAPARIN 40MG/0.4ML SYRINGE (J1650 PER 10MG) SC SCH (09:29)
[2023-02-28] MEDS: LR 1,000 ML IV SCH (16:51)
[2023-02-28] MEDS ORDERED: LIDOCAINE 1% MDV 20ML VIAL SC STA (17:46)
[2023-02-28] MEDS: cefTRIAXone SOD 1 GM in D5W MINI-BAG PLUS 50 ML IV SCH (19:11)
[2023-02-28] MEDS ORDERED: PIPERACILLIN/TAZOBACTAM SOD 4.5 GM in D5W MINI-BAG PLUS 50 ML IV SCH (20:35)
[2023-02-28 20:59] LABS: APPEARANCE, URINE CLEAR (CLEAR); BACTERIA, URINE AUTO NEGATIVE (NEGATIVE); BILIRUBIN, URINE AUTO NEGATIVE (NEGATIVE); BLOOD, URINE BLOOD NEGATIVE (NEGATIVE); COLOR, URINE STRAW (YELLOW); GLUCOSE, URINE (UA) AUTO NEGATIVE (NEGATIVE); KETONE, URINE AUTO NEGATIVE (NEGATIVE); LEUKOCYTE ESTERASE, URINE AUTO NEGATIVE (NEGATIVE); MUCUS, URINE SMALL (NEGATIVE); NITRITE, URINE AUTO NEGATIVE (NEGATIVE); PROTEIN, URINE AUTO NEGATIVE (NEGATIVE); RBC, URINE AUTO 0 /HPF (0-3); SQUAMOUS EPITHELIAL CELL UR AU 0 /HPF (0-6); UROBILINOGEN, URINE AUTO 0.2 mg/dL (0.0-2.0); WBC, URINE AUTO 1 /HPF (0-3)
[2023-02-28 21:28] LABS: ALBUMIN 2.1 G/DL (3.2-5.2); BILIRUBIN,DIRECT 0.2 MG/DL (<0.4); BILIRUBIN,TOTAL 0.5 MG/DL (0.3-1.2); TOTAL PROTEIN 4.1 G/DL (5.7-8.2)
[2023-03-01] VITALS (108 sets, daily range): BP systolic 80–177; BP diastolic 41–107; TEMP 97–99.9; O2SAT 92–100
[2023-03-01] MEDS: INSULIN LISPRO (NovoLOG) PER UNIT SC SCH ×4 (00:20→18:00)
[2023-03-01] MEDS: VASOPRESSIN INJ 20 UNITS in NS 499 ML IV SCH ×3 (01:00→18:04)
[2023-03-01 05:26] LABS: ALBUMIN 2.4 G/DL (3.2-5.2); BLOOD UREA NITROGEN 7 MG/DL (9-23); CALCIUM LEVEL 7.7 MG/DL (8.5-10.1); CARBON DIOXIDE LEVEL 22 MMOL/L (20-31); CHLORIDE LEVEL 111 MMOL/L (98-107); CREATININE FOR GFR 0.58 MG/DL (0.55-1.30); GLOMERULAR FILTRATION RATE > 60.0 (>60); GLUCOSE, FASTING 67 MG/DL (60-100); PHOSPHORUS LEVEL 3.5 MG/DL (2.5-4.9); POTASSIUM SERUM 3.9 MMOL/L (3.5-5.1); SODIUM LEVEL 138 MMOL/L (136-145)
[2023-03-01] MEDS ORDERED: VASOPRESSIN INJ 20 UNITS in NS 499 ML IV STA (07:36)
[2023-03-01] MEDS: IPRATROPIUM 0.5MG/ALBUTEROL 2.5MG INH SOL UD 3ML (DUONEB) NEB SCH ×4 (07:42→19:40)
[2023-03-01 08:00] LABS: ABG BASE EXCESS -4.8 (-2.0-2.0); ABG HCO3 18.6 MMOL/L (22.0-26.0); ABG O2 SATURATION 98.7 % (95.0-99.0); ABG PARTIAL PRESSURE O2 125.3 mmHg (75.0-100.0); ABG STANDARD HCO3 20.5 MMOL/L. (22.0-26.0); ABG TOTAL CO2 19.5 MMOL/L (22.0-29.0); ABG pH (ARTERIAL) 7.426 UNITS (7.350-7.450)
[2023-03-01] MEDS: PANTOPRAZOLE 40MG VIAL IV SCH (08:35)
[2023-03-01] MEDS: ENOXAPARIN 40MG/0.4ML SYRINGE (J1650 PER 10MG) SC SCH (08:35)
[2023-03-01 09:22] LABS: HEMOGLOBIN 9.4 g/dl (12.0-15.5); MEAN CORPUSCULAR HGB CONC 32.4 g/dl (32.0-36.5); MEAN CORPUSCULAR VOLUME 98.6 fl (80.0-96.0); PLATELET COUNT, AUTOMATED 114 10^3/uL (150-450); RED BLOOD COUNT 2.94 10^6/uL (4.00-5.40); WHITE BLOOD COUNT 9.4 10^3/uL (4.0-10.0)
[2023-03-01] MEDS: DESMOPRESSIN ACETATE 1 MCG in NS 50 ML IV SCH ×2 (10:14→22:11)
[2023-03-01 11:11] LABS: ABG HCO3 18.6 MMOL/L (22.0-26.0); ABG O2 SATURATION 99.6 % (95.0-99.0); ABG PARTIAL PRESSURE CO2 33.2 mmHg (35.0-45.0); ABG PARTIAL PRESSURE O2 397.1 mmHg (75.0-100.0); ABG STANDARD HCO3 19.5 MMOL/L. (22.0-26.0); ABG TOTAL CO2 19.6 MMOL/L (22.0-29.0); ABG pH (ARTERIAL) 7.366 UNITS (7.350-7.450)
[2023-03-01] MEDS: D5W/0.45% SODIUM CHLORIDE 1,000 ML IV SCH (11:59)
[2023-03-01 13:18] LABS: BASO % 0.3 % (0.0-1.0); EOS # 0.5 10^3/uL (0.0-0.5); EOS % 6.3 % (0.0-3.0); HEMATOCRIT 26.2 % (36.0-47.0); HEMOGLOBIN 8.8 g/dl (12.0-15.5); LYMPH # 1.1 10^3/uL (1.5-5.0); LYMPH % 14.7 % (24.0-44.0); MEAN CORPUSCULAR HEMOGLOBIN 32.7 pg (27.0-33.0); MEAN CORPUSCULAR HGB CONC 33.6 g/dl (32.0-36.5); MEAN CORPUSCULAR VOLUME 97.4 fl (80.0-96.0); MONO # 0.4 10^3/uL (0.0-0.8); MONO % 5.4 % (2.0-8.0); NEUTROPHILS % 69.1 % (36.0-66.0); PLATELET COUNT, AUTOMATED 110 10^3/uL (150-450); RED BLOOD COUNT 2.69 10^6/uL (4.00-5.40); WHITE BLOOD COUNT 7.2 10^3/uL (4.0-10.0)
[2023-03-01 13:25] LABS: IONIZED CALCIUM 4.7 MG/DL (4.5-5.3)
[2023-03-01 13:28] LABS: INR 1.23; PROTHROMBIN TIME 15.2 SECONDS (12.5-14.5)
[2023-03-01 13:29] LABS: PARTIAL THROMBOPLASTIN TIME 46.2 SECONDS (24.8-34.2)
[2023-03-01 13:32] LABS: ABG HCO3 20.2 MMOL/L (22.0-26.0); ABG O2 SATURATION 95.1 % (95.0-99.0); ABG PARTIAL PRESSURE O2 82.1 mmHg (75.0-100.0); ABG STANDARD HCO3 20.3 MMOL/L. (22.0-26.0); ABG TOTAL CO2 21.4 MMOL/L (22.0-29.0); ABG pH (ARTERIAL) 7.344 UNITS (7.350-7.450)
[2023-03-01 13:45] LABS: LIPASE 13 U/L (12-53)
[2023-03-01 13:46] LABS: AMYLASE 37 U/L (30-118)
[2023-03-01 13:47] LABS: ALBUMIN 2.1 G/DL (3.2-5.2); ALKALINE PHOSPHATASE 85 U/L (46-116); ALT/SGPT 54 U/L (7.0-40); AST/SGOT 459 U/L (<34); BILIRUBIN,TOTAL 0.6 MG/DL (0.3-1.2); BLOOD UREA NITROGEN 8 MG/DL (9-23); CALCIUM LEVEL 7.8 MG/DL (8.5-10.1); CARBON DIOXIDE LEVEL 23 MMOL/L (20-31); CHLORIDE LEVEL 112 MMOL/L (98-107); CREATININE FOR GFR 0.71 MG/DL (0.55-1.30); GLOMERULAR FILTRATION RATE > 60.0 (>60); GLUCOSE, FASTING 103 MG/DL (60-100); MAGNESIUM LEVEL 1.6 MG/DL (1.8-2.4); PHOSPHORUS LEVEL 3.3 MG/DL (2.5-4.9); POTASSIUM SERUM 3.6 MMOL/L (3.5-5.1); SODIUM LEVEL 141 MMOL/L (136-145); TOTAL PROTEIN 4.2 G/DL (5.7-8.2)
[2023-03-01 13:56] LABS: LDH LACTATE DEHYDROGENASE 750.00001 U/L (120-246)
[2023-03-01 15:42] LABS: BLOOD UREA NITROGEN 7 MG/DL (9-23); CARBON DIOXIDE LEVEL 22 MMOL/L (20-31); CHLORIDE LEVEL 114 MMOL/L (98-107); CREATININE FOR GFR 0.72 MG/DL (0.55-1.30); GLOMERULAR FILTRATION RATE > 60.0 (>60); GLUCOSE, FASTING 103 MG/DL (60-100); MAGNESIUM LEVEL 1.6 MG/DL (1.8-2.4); POTASSIUM SERUM 3.7 MMOL/L (3.5-5.1); SODIUM LEVEL 143 MMOL/L (136-145)
[2023-03-01] MEDS: LR 1,000 ML IV SCH (16:30)
[2023-03-01 16:42] LABS: ABG BASE EXCESS -7.3 (-2.0-2.0); ABG HCO3 17.2 MMOL/L (22.0-26.0); ABG O2 SATURATION 99.4 % (95.0-99.0); ABG PARTIAL PRESSURE CO2 31.3 mmHg (35.0-45.0); ABG PARTIAL PRESSURE O2 358.9 mmHg (75.0-100.0); ABG STANDARD HCO3 18.5 MMOL/L. (22.0-26.0); ABG TOTAL CO2 18.2 MMOL/L (22.0-29.0); ABG pH (ARTERIAL) 7.359 UNITS (7.350-7.450)
[2023-03-01] MEDS ORDERED: MAG SULF 1GM/100ML (MAG RUN) 1 GM in IV 1 EA IV ONE (17:00)
[2023-03-01] MEDS ORDERED: cefTRIAXone SOD 1 GM in D5W MINI-BAG PLUS 50 ML IV SCH (19:00)
[2023-03-01 19:47] LABS: ABG HCO3 17.8 MMOL/L (22.0-26.0); ABG O2 SATURATION 99.3 % (95.0-99.0); ABG PARTIAL PRESSURE CO2 32.9 mmHg (35.0-45.0); ABG PARTIAL PRESSURE O2 383.6 mmHg (75.0-100.0); ABG STANDARD HCO3 18.7 MMOL/L. (22.0-26.0); ABG TOTAL CO2 18.8 MMOL/L (22.0-29.0); ABG pH (ARTERIAL) 7.351 UNITS (7.350-7.450)
[2023-03-01 20:24] LABS: IONIZED CALCIUM 4.7 MG/DL (4.5-5.3)
[2023-03-01 20:36] LABS: HEMATOCRIT 24.5 % (36.0-47.0); HEMOGLOBIN 8.1 g/dl (12.0-15.5); MEAN CORPUSCULAR HGB CONC 33.1 g/dl (32.0-36.5); MEAN CORPUSCULAR VOLUME 96.8 fl (80.0-96.0); PLATELET COUNT, AUTOMATED 104 10^3/uL (150-450); RED BLOOD COUNT 2.53 10^6/uL (4.00-5.40)
[2023-03-01 20:46] LABS: INR 1.27; PROTHROMBIN TIME 15.6 SECONDS (12.5-14.5)
[2023-03-01 20:47] LABS: PARTIAL THROMBOPLASTIN TIME 48.4 SECONDS (24.8-34.2)
[2023-03-01 20:53] LABS: ALBUMIN 1.9 G/DL (3.2-5.2); ALKALINE PHOSPHATASE 85 U/L (46-116); ALT/SGPT 51 U/L (7.0-40); AST/SGOT 446 U/L (<34); BILIRUBIN,TOTAL 0.4 MG/DL (0.3-1.2); BLOOD UREA NITROGEN 7 MG/DL (9-23); CALCIUM LEVEL 7.6 MG/DL (8.5-10.1); CARBON DIOXIDE LEVEL 22 MMOL/L (20-31); CHLORIDE LEVEL 113 MMOL/L (98-107); CREATININE FOR GFR 0.62 MG/DL (0.55-1.30); GLOMERULAR FILTRATION RATE > 60.0 (>60); GLUCOSE, FASTING 134 MG/DL (60-100); PHOSPHORUS LEVEL 4.1 MG/DL (2.5-4.9); POTASSIUM SERUM 3.7 MMOL/L (3.5-5.1); SODIUM LEVEL 140 MMOL/L (136-145); TOTAL PROTEIN 4.1 G/DL (5.7-8.2)
[2023-03-01 21:16] LABS: ABG BASE EXCESS -7.4 (-2.0-2.0); ABG HCO3 17.9 MMOL/L (22.0-26.0); ABG O2 SATURATION 95.6 % (95.0-99.0); ABG PARTIAL PRESSURE CO2 35.1 mmHg (35.0-45.0); ABG PARTIAL PRESSURE O2 89.2 mmHg (75.0-100.0); ABG STANDARD HCO3 18.3 MMOL/L. (22.0-26.0); ABG pH (ARTERIAL) 7.325 UNITS (7.350-7.450)
[2023-03-01 21:31] LABS: EOSINOPHILS 11 % (0-3); LYMPHOCYTES 22 % (16-44); MONOCYTES 2 % (0-5); NEUTROPHILS 59 % (28-66)
[2023-03-01 21:33] LABS: HYPOCHROMASIA 1+; PLATELET ESTIMATE NORMAL (NORMAL); POLYCHROMASIA 1+
[2023-03-01] MEDS: propofoL 1,000 MG in IV 1 EA IV SCH (21:45)
[2023-03-02] VITALS (51 sets, daily range): BP systolic 85–133; BP diastolic 43–85; TEMP 95.7–97.1; O2SAT 92–99
[2023-03-02] MEDS: IPRATROPIUM 0.5MG/ALBUTEROL 2.5MG INH SOL UD 3ML (DUONEB) NEB SCH ×3 (01:19→13:10)
[2023-03-02] MEDS: VASOPRESSIN INJ 20 UNITS in NS 499 ML IV SCH ×3 (01:47→10:52)
[2023-03-02 04:27] LABS: IONIZED CALCIUM 4.6 MG/DL (4.5-5.3)
[2023-03-02 04:33] LABS: BASO % 0.3 % (0.0-1.0); EOS # 0.5 10^3/uL (0.0-0.5); EOS % 7.8 % (0.0-3.0); HEMATOCRIT 30.3 % (36.0-47.0); LYMPH # 0.9 10^3/uL (1.5-5.0); LYMPH % 14.1 % (24.0-44.0); MEAN CORPUSCULAR HEMOGLOBIN 32.4 pg (27.0-33.0); MEAN CORPUSCULAR HGB CONC 34.3 g/dl (32.0-36.5); MEAN CORPUSCULAR VOLUME 94.4 fl (80.0-96.0); MONO # 0.4 10^3/uL (0.0-0.8); MONO % 6.5 % (2.0-8.0); NEUTROPHILS # 4.2 10^3/uL (1.5-8.5); PLATELET COUNT, AUTOMATED 101 10^3/uL (150-450); RED BLOOD COUNT 3.21 10^6/uL (4.00-5.40)
[2023-03-02 04:35] LABS: ABG BASE EXCESS -6.8 (-2.0-2.0); ABG HCO3 18.2 MMOL/L (22.0-26.0); ABG O2 SATURATION 96.5 % (95.0-99.0); ABG PARTIAL PRESSURE CO2 34.3 mmHg (35.0-45.0); ABG PARTIAL PRESSURE O2 90.4 mmHg (75.0-100.0); ABG STANDARD HCO3 18.9 MMOL/L. (22.0-26.0); ABG TOTAL CO2 19.2 MMOL/L (22.0-29.0); ABG pH (ARTERIAL) 7.342 UNITS (7.350-7.450)
[2023-03-02 04:45] LABS: HEMOGLOBIN 10.4 g/dl (12.0-15.5)
[2023-03-02 04:54] LABS: INR 1.2; PROTHROMBIN TIME 14.9 SECONDS (12.5-14.5)
[2023-03-02 04:55] LABS: PARTIAL THROMBOPLASTIN TIME 44.7 SECONDS (24.8-34.2)
[2023-03-02 05:00] LABS: LIPASE 18 U/L (12-53)
[2023-03-02 05:01] LABS: AMYLASE 26 U/L (30-118)
[2023-03-02 05:02] LABS: ALBUMIN 1.9 G/DL (3.2-5.2); BLOOD UREA NITROGEN 7 MG/DL (9-23); CALCIUM LEVEL 7.4 MG/DL (8.5-10.1); CARBON DIOXIDE LEVEL 20 MMOL/L (20-31); CHLORIDE LEVEL 111 MMOL/L (98-107); CREATININE FOR GFR 0.56 MG/DL (0.55-1.30); GLOMERULAR FILTRATION RATE > 60.0 (>60); GLUCOSE, FASTING 118 MG/DL (60-100); PHOSPHORUS LEVEL 4.6 MG/DL (2.5-4.9); POTASSIUM SERUM 3.6 MMOL/L (3.5-5.1); SODIUM LEVEL 138 MMOL/L (136-145)
[2023-03-02 05:06] LABS: ALBUMIN 1.9 G/DL (3.2-5.2); ALKALINE PHOSPHATASE 87 U/L (46-116); ALT/SGPT 47 U/L (7.0-40); AST/SGOT 461 U/L (<34); BILIRUBIN,TOTAL 0.8 MG/DL (0.3-1.2); BLOOD UREA NITROGEN 8 MG/DL (9-23); CALCIUM LEVEL 7.4 MG/DL (8.5-10.1); CARBON DIOXIDE LEVEL 20 MMOL/L (20-31); CHLORIDE LEVEL 110 MMOL/L (98-107); CREATININE FOR GFR 0.56 MG/DL (0.55-1.30); GLOMERULAR FILTRATION RATE > 60.0 (>60); GLUCOSE, FASTING 120 MG/DL (60-100); MAGNESIUM LEVEL 1.8 MG/DL (1.8-2.4); PHOSPHORUS LEVEL 4.6 MG/DL (2.5-4.9); POTASSIUM SERUM 3.5 MMOL/L (3.5-5.1); SODIUM LEVEL 136 MMOL/L (136-145); TOTAL PROTEIN 4.1 G/DL (5.7-8.2)
[2023-03-02] MEDS: D5W/0.45% SODIUM CHLORIDE 1,000 ML IV SCH (05:48)
[2023-03-02] MEDS: INSULIN LISPRO (NovoLOG) PER UNIT SC SCH ×3 (05:48→12:00)
[2023-03-02] MEDS ORDERED: LR 1,000 ML IV ONE (07:30)
[2023-03-02] MEDS: ENOXAPARIN 40MG/0.4ML SYRINGE (J1650 PER 10MG) SC SCH (08:50)
[2023-03-02] MEDS: PANTOPRAZOLE 40MG VIAL IV SCH (08:51)
[2023-03-02] MEDS: DESMOPRESSIN ACETATE 1 MCG in NS 50 ML IV SCH (09:35)
[2023-03-02 12:19] LABS: BASO % 0.4 % (0.0-1.0); EOS # 0.4 10^3/uL (0.0-0.5); EOS % 7.7 % (0.0-3.0); HEMATOCRIT 28.1 % (36.0-47.0); HEMOGLOBIN 9.7 g/dl (12.0-15.5); LYMPH # 0.9 10^3/uL (1.5-5.0); LYMPH % 17.6 % (24.0-44.0); MEAN CORPUSCULAR HEMOGLOBIN 32.2 pg (27.0-33.0); MEAN CORPUSCULAR HGB CONC 34.5 g/dl (32.0-36.5); MEAN CORPUSCULAR VOLUME 93.4 fl (80.0-96.0); MONO # 0.4 10^3/uL (0.0-0.8); MONO % 8.5 % (2.0-8.0); NEUTROPHILS # 3.2 10^3/uL (1.5-8.5); NEUTROPHILS % 65.8 % (36.0-66.0); RED BLOOD COUNT 3.01 10^6/uL (4.00-5.40); WHITE BLOOD COUNT 4.8 10^3/uL (4.0-10.0)
[2023-03-02 12:22] LABS: PLATELET COUNT, AUTOMATED 92 10^3/uL (150-450)
[2023-03-02] MEDS: propofoL 1,000 MG in IV 1 EA IV SCH (12:25)
[2023-03-02 12:42] LABS: ALBUMIN 1.7 G/DL (3.2-5.2); ALKALINE PHOSPHATASE 80 U/L (46-116); ALT/SGPT 38 U/L (7.0-40); AST/SGOT 375 U/L (<34); BILIRUBIN,TOTAL 0.5 MG/DL (0.3-1.2); BLOOD UREA NITROGEN 7 MG/DL (9-23); CALCIUM LEVEL 7.1 MG/DL (8.5-10.1); CARBON DIOXIDE LEVEL 20 MMOL/L (20-31); CHLORIDE LEVEL 109 MMOL/L (98-107); CREATININE FOR GFR 0.55 MG/DL (0.55-1.30); GLOMERULAR FILTRATION RATE > 60.0 (>60); GLUCOSE, FASTING 88 MG/DL (60-100); POTASSIUM SERUM 3.1 MMOL/L (3.5-5.1); SODIUM LEVEL 137 MMOL/L (136-145); TOTAL PROTEIN 3.7 G/DL (5.7-8.2)
[2023-03-02] MEDS ORDERED: KCL 20MEQ IN 100ML SWI (KRUN) 20 MEQ in IV 1 EA IV STA ×2 (13:19)
[2023-03-02] MEDS ORDERED: MORPHINE 4 MG/ML 1ML VIAL IV STA (13:47)
[2023-03-02] MEDS ORDERED: MIDAZOLAM 5MG/ML 1ML VIAL IV STA (13:47)
== END 2023-03-02 15:44 | disposition expired | DRG 951 ==
LOC: M ED 15:24 → M ED INP 16:56 → M ICU 18:08
PROVIDERS: ADMIT Internal Medicine Pulmonary Disease; ATTEND Internal Medicine Pulmonary Disease
PROC: 5A1945Z Respiratory Ventilation, 24-96 Consecutive Hours (ICD-10-PCS; 2023-02-26)
PROC: B246ZZZ Ultrasonography of Right and Left Heart (ICD-10-PCS; principal; 2023-02-28)
PROC: 0BJ08ZZ Inspection of Tracheobronchial Tree, Via Natural or Artificial Opening Endoscopic (ICD-10-PCS; 2023-02-28)
PROC: 04HY32Z Insertion of Monitoring Device into Lower Artery, Percutaneous Approach (ICD-10-PCS; 2023-03-01)
DX: T40.1X1A Poisoning by heroin, accidental (unintentional), initial encounter (principal); I46.9 Cardiac arrest, cause unspecified; J96.90 Respiratory failure, unspecified, unspecified whether with hypoxia or hypercapnia; R57.8 Other shock; J69.0 Pneumonitis due to inhalation of food and vomit; G93.1 Anoxic brain damage, not elsewhere classified; E23.2 Diabetes insipidus; I95.9 Hypotension, unspecified; D53.9 Nutritional anemia, unspecified; R68.0 Hypothermia, not associated with low environmental temperature; R94.31 Abnormal electrocardiogram [ECG] [EKG]; G40.909 Epilepsy, unspecified, not intractable, without status epilepticus; F31.9 Bipolar disorder, unspecified; Z66 Do not resuscitate